=== PATIENT | male | born 1960 | race Caucasian/White ===

== ENCOUNTER → 2022-01-20 15:39 | Outpatient (BNVA) | payer MEDICARE, MEDICAID, SELFPAY | PROVIDERS: Family Provider Family Medicine; PCP Nurse Practitioner Family; Referring Provider Nurse Practitioner Family; Visit Provider Orthopaedic Surgery | DX: M51.36 Other intervertebral disc degeneration, lumbar region (principal); M48.061 Spinal stenosis, lumbar region without neurogenic claudication; M25.78 Osteophyte, vertebrae | CPT/HCPCS: 72110; 99203; 99204 ==

== ENCOUNTER 2022-02-16 13:10 | Outpatient (CLI) | payer MEDICARE, MEDICAID, SELFPAY ==
--- NOTE | 2022-02-16 13:45 | MR_ITS ---
WS: [id number] MRI LUMBAR SPINE NONCONTRAST TECHNIQUE: Sagittal T1, T2 and STIR imaging. Axial T1 and T2 imaging. CLINICAL INFORMATION: Lower back pain COMPARISON: None. FINDINGS: Mild lumbar curve. No acute compression. No high-grade central canal stenosis. L1-L2: Slight retrolisthesis. Mild disc space narrowing. Narrowing of the RIGHT subarticular recess. Mild RIGHT and no significant LEFT foraminal narrowing. Moderate facet arthropathy. L2-L3: Mild disc bulging with mild central canal stenosis. Impingement LEFT subarticular recess. Mild LEFT foraminal narrowing. Moderate facet arthropathy. L3-L4: Mild annular bulging. Narrowing of the LEFT subarticular recess. Mild LEFT foraminal narrowing . RIGHT foramen is patent. Moderate facet arthropathy. L4-L5: Mild disc bulging with osteophytic ridging. Moderate central canal stenosis. Impingement trave rsing L5 nerve roots bilaterally. Advanced facet arthropathy. Ligamentum flavum hypertrophy. Moderate RIGHT and mild LEFT foraminal narrowing. L5-S1: LEFT eccentric disc osteophyte complex impinges the exiting LEFT L5 nerve root. Moderate LEFT foraminal narrowing. Slight impingement traversing LEFT S1 nerve root. RIGHT foramen is patent. Moder ate facet arthropathy. Visualized pelvic bony structures: Normal. Paravertebral soft tissues: Normal. 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 Grade 1 anterolisthesi s C7 on T1. MR/MR lumbar spine wo con* [id number] IMPRESSION: 1. Mild lumbar curve. No acute compression. No high-grade central canal stenos is. 2. Moderate central canal stenosis L4-L5 with impingement traversing L5 nerve roots bilaterally. Moderate RIGHT L4-L5 foraminal narrowing impinges the exitin g RIGHT L4 nerve root. 3. Disc bulging L5-S1 slightly contacts the LEFT S1 nerve root. Moderate LEFT L5-S1 foraminal narrowing. 4. Disc bulging L1-L2 impinges the RIGHT subarticular recess with encroachment traversing RIGHT L2 nerve root. Mild RIGHT L1-L2 foraminal narrowing. 5. Mild central canal stenosis L2-L3 impinges the traversing LEFT L3 nerve laurie t with mild LEFT foraminal narrowing. 6. Mild central canal stenosis L3-L4 slight narrowing of the LEFT subarticular recess. Mild LEFT L3-L4 foraminal narrowing. 7. Advanced facet arthropathy L4-L5.
== END 2022-02-16 13:11 | disposition home or self-care (01) ==
LOC: RAD 13:10
PROVIDERS: PCP Nurse Practitioner Family; Visit Provider Orthopaedic Surgery
DX: M48.061 Spinal stenosis, lumbar region without neurogenic claudication (principal); M51.37 Other intervertebral disc degeneration, lumbosacral region; M47.816 Spondylosis without myelopathy or radiculopathy, lumbar region
CPT/HCPCS: 72148

== ENCOUNTER 2023-04-10 04:59 | Inpatient (IN) | payer MEDICARE, MEDICAID, SELFPAY ==
[2023-04-10] VITALS (12 sets, daily range): BP systolic 112–167; BP diastolic 66–110; PULSE 93–117; RESP 16–31; TEMP 36.7; O2SAT 93–98; BMI 23.3
--- NOTE | 2023-04-10 06:21 | P.HP_ITS ---
Providers/Chief Complaint 2 Admitting Physician: Omar Covarrubias MD Primary Care Provider: Ricky Lagunas Chief Complaint: Nonstemi History of Present Illness April Mancia is a 62 year old male with history of coronary disease, stent in the past, active smoker, polysubstance abuse, COPD, drinks alcohol on daily basis transferred from [facility] for management evaluation of shortness of breath. Work-up at the other facility showed troponin greater than 600, BNP greater than 2000, EKG did not show any acute ischemic changes, T wave inversion with ST depression were noted on EKG he was put on heparin drip he was given therapeutic aspirin Nitropaste was put on his chest. He was transferred to our facility for cardiac evaluation. At the time of evaluation patient is chest pain-free he is tachycardic, he is stating that for last couple days he has been getting more short of breath than usual, he smokes couple packs of cigarettes every day, drinks 1 pint of vodka has history of DTs in the past, endorsing use of methamphetamine and marijuana, he used methamphetamine yesterday as well. He is stating that he has had a stent placed couple of years ago. He lives alone, no chest pain at the time of evaluation. Patient is stating that he never experienced any chest pain but his shortness of breath has gotten worse. He has not noticed any diarrhea, nausea, vomiting or productive cough. I have started ACS protocol with therapeutic Lovenox Review of Systems 2 Const: Denies: fever(s) Eyes: Denies: change in vision ENMT: Denies: throat pain Card: Denies: chest pain Resp: Reports: dyspnea GI: Reports: nausea; Denies: abdominal pain : Denies: flank pain Musc: Denies: neck pain Medications/Allergies Allergies Allergy/AdvReac Type Severity Reaction Status Date / Time No Known Allergies Allergy Verified 05/25/22 13:04 PFSH Acute 2 PFSH: Medical History DTs (delirium tremens) Scabies Surgical History (Updated 04/10/23 @ 07:13 by Omar Covarrubias MD) History of surgery on arm Social History Smoking and tobacco/nicotine status: current every day tobacco/nicotine user Alcohol intake: current Alcohol intake frequency: 3 or more drinks per day Alcohol type: hard liquor Substance/Drug Use: current Substance/Drug use type: Marijuana and Methamphetamine Vitals/I&O/Wt Last Vital Signs Pulse 114 H 04/10/23 05:09 Resp 31 H 04/10/23 05:09 BP 141/88 04/10/23 05:09 Pulse Ox 97 04/10/23 05:09 O2 Del Method Nasal Cannula 04/10/23 05:09 O2 Flow Rate 2 04/10/23 05:09 Weight last 48 hrs Weight 71.668 kg Weight 73.936 kg Weight 71.668 kg Physical Exam 2 Narrative: Dehydrated Tachycardic Pleasant and cooperative No active chest pain Currently on 2 L GCS 15 Nonfocal neuro exam Abdomen soft Pleasant and cooperative No active chest pain Data 04/10/23 06:55 04/10/23 06:55 A&P Assessment and plan (1) Methamphetamine abuse: (2) Sciatic nerve pain: (3) Back Pain: (4) NSTEMI (non-ST elevated myocardial infarction): (5) Nicotine abuse: Plan Non-STEMI Start ACS protocol Give therapeutic dose of Plavix/loading dose Patient was given aspirin at the other facility Start Lovenox therapeutic regimen Serial troponin and EKG Patient will need cardiology evaluation for angiogram Patient is stating that he has history of coronary disease, stent was placed couple of years ago Patient was seen in 2018 stent was placed to proximal RCA and balloon angioplasty to distal circumflex there was moderate 60% proximal LAD stenosis, left circumflex mid 50% stenosis Cardiology recommendations [id number]: Status post stent to proximal RCA and balloon angioplasty to distal circumflex. There was moderate 60% proximal LAD stenosis . Left circumflex has mid 50% stenosis it is a small caliber and size vessel. Distal circumflex was subtotally occluded which was ballooned. Good result with YOUNG-3 flow was restored in both vessels. Patient also has ostial PDA which is 75% it is small caliber and size vessel. We wanted to perform balloon angioplasty on it however patient was not very cooperative since we achieved good result with both lesions were decided to treated medically or perform stage PCI at some point if despite of medical treatment this lesion induces ischemia Polysubstance abuse Endorsing to methamphetamine use, last use was yesterday Drinks alcohol on daily basis Drinks a pint of vodka every day Start thiamine, folic acid and scheduled dose of phenobarbital has history of DTs Cardiac diet Full code We will consult Dr. Beltran who is on for general cardiology today Attestations 2 Medical Necessity Statement*: More than 2 midnights anticipated Diagnoses Methamphetamine abuse F15.10 Sciatic nerve pain M54.30 Back Pain M54.9 NSTEMI (non-ST elevated myocardial infarction) I21.4 Nicotine abuse Z72.0
--- NOTE | 2023-04-10 06:22 | USCV_ITS ---
April Mancia Age: 62 Gender: M : 1960 Exam Date: 04/10/2023 08:45 Ordering Phys: Omar Covarrubias MD Technologist: Yo Borrego Exam Location: [facility] [place] Indication: nstemi BP: 167 / 111 HR: Rhythm: Sinus Technical Quality: Very technically difficult study MEASUREMENTS (Male / Female) Normal Values DOPPLER AV Peak Velocity 101.0 cm/s LVOT Peak Velocity 70.0 cm/s MV Area PHT 5.4 cm squared Mitral E to A Ratio 1.3 MV E' Velocity 70.0 cm/s FINDINGS Left Ventricle Mildly increased left ventricular cavity size. Severely decreased left ventricular systolic function. Left ventricular ejection fraction is estimated at 25-30 %. Possibly severe global hypokinesis. However study was inadequate for estimation of regional wall motion abnormality. Right Ventricle Normal right ventricular size and systolic function. Right Atrium Normal right atrial size. Left Atrium Mildly increased left atrial size. Mitral Valve Structurally normal mitral valve. Mild mitral valve regurgitation. Aortic Valve Aortic valve not well visualized. No aortic valve stenosis. Tricuspid Valve Structurally normal tricuspid valve. Pulmonic Valve Pulmonic valve not well visualized. Pericardium No pericardial effusion. Aorta Aorta not well visualized. IVC Inferior vena cava not visualized. CONCLUSIONS 1. This is a technically difficult study. Only Subcostal images were available. 2. Mildly increased left ventricular cavity size. Severely decreased left ventricular systolic function. Left ventricular ejection fraction is estimated at 25-30 %. Possibly severe global hypokinesis. However study was inadequate for estimation of regional wall motion abnormality. 3. Mild mitral valve regurgitation. 4. When compared to study dated 06/18/2017, there may not have been any significant change. Jodie Spear MD (Electronically Signed) Final Date: 10 April 2023 12:20 S
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
--- NOTE | 2023-04-10 06:34 | ECG_ITS ---
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 Measurements Intervals [place] Rate: 110 P: 64 AR: 129 QRS: 36 QRSD: 102 T: -6 QT: 351 QTc: 476 Interpretive Statements SINUS TACHYCARDIA WITH OCCASIONAL VENTRICULAR PREMATURE COMPLEXES POSSIBLE LEFT ATRIAL ENLARGEMENT [-0.1mV P-WAVE IN V1/V2] NONSPECIFIC ST & T-WAVE ABNORMALITY ABNORMAL RHYTHM ECG Compared to ECG 06/18/2017 09:24:03 Ventricular premature complex(es) now present Sinus rhythm no longer present Possible ischemia no longer present T-wave abnormality still present Electronically Signed On 04-10-2023 8:17:38 INSTRUMENT INSTALLER by Andrea Gu M.D. [id number]
[2023-04-10] MEDS: clopidogrel 300 mg Tablet PO (06:36)
[2023-04-10] MEDS: enoxaparin 80 mg/0.8 mL Syringe 70 MG SUBCUT ×2 (06:52→18:19)
[2023-04-10 07:04] LABS: Basophils % 0.1 %; Hematocrit 40.6 % (37-53); Lymphocytes # 0.8 10^3/uL (0.8-4.8); Lymphocytes % 8.4 %; Mean Corpuscular HGB Conc 32.5 g/dL (30-55); Mean Corpuscular Hemoglobin 28.9 pg (27-33); Mean Platelet Volume 11.7 fL (7.4-10.4); Monocytes # 0.1 10^3/uL (0.2-0.9); Monocytes % 1.2 %; Neutrophils # 8.26 10^3/uL (1.8-7.7); Nucleated Red Blood Cells % 0 %; Platelet Count 187 10^3/cmm (157-399); Red Blood Count 4.56 10^6/uL (3.85-5.65); Red Cell Distribution Width 14.8 % (12.1-15.1); White Blood Count 9.18 10^3/uL (3.29-11.43)
[2023-04-10 07:21] LABS: Estmated Average Glucose 114; Hemoglobin A1C 5.6 % (4.0-6.0)
[2023-04-10 07:26] LABS: Alanine Aminotransferase 23 U/L (0-41); Albumin Level 3.5 g/dL (3.5-5.2); Alkaline Phosphatase 118 U/L (40-130); Anion Gap 18.1 (5-19); Aspartate Amino Transferase 45 U/L (0-40); Blood Urea Nitrogen 14 mg/dL (8-23); Calcium 8.6 mg/dL (8.5-10.5); Carbon Dioxide 19 mmol/L (22-29); Chloride 102 mmol/L (98-107); Globulin 3.6 g/dL (1.3-4.6); Glomerular Filtration Rate 113.9 mL/min (90-130); Glucose 136 mg/dL (65-115); Osmolality Calculated 283 mOsm/kg (285-295); Potassium 4.1 mmol/L (3.5-5.1); Sodium 135 mmol/L (136-145); Total Bilirubin 1.1 mg/dL (0.15-1.2); Total Protein 7.1 g/dL (6.6-8.7)
[2023-04-10 07:29] LABS: Troponin(5th) Baseline 534 ng/L (0-15)
[2023-04-10 07:31] LABS: Partial Thromboplastin Time 38.1 SECONDS (23.9-36.7)
[2023-04-10 07:32] LABS: D Dimer 1.37 ug/mLFEU (0-0.59)
[2023-04-10 07:41] LABS: Thyroid Stimulating Hormone 0.74 uIU/mL (0.27-4.20); Vitamin B12 303 pg/mL (232-1245)
[2023-04-10] MEDS: PHENobarbital 32.4 mg Tablet 97.2 MG PO (07:50)
[2023-04-10 07:58] LABS: Alcohol Level < 10 mg/dL (0-10)
--- NOTE | 2023-04-10 08:23 | ECG_ITS ---
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 Measurements Intervals [place] Rate: 108 P: 109 SD: 124 QRS: 172 QRSD: 106 T: 123 QT: 361 QTc: 485 Interpretive Statements SINUS TACHYCARDIA WITH OCCASIONAL VENTRICULAR PREMATURE COMPLEXES POSSIBLE LEFT ATRIAL ENLARGEMENT [-0.1mV P-WAVE IN V1/V2] RIGHT AXIS DEVIATION [QRS AXIS > 100] NONSPECIFIC ST & T-WAVE ABNORMALITY Compared to ECG 04/10/2023 06:34:45 Right-axis deviation now present T-wave abnormality still present Electronically Signed On 04-10-2023 9:39:08 LINE INSTALLER TROLLEY by Jodie Spear M.D. [id number]
[2023-04-10] MEDS: LORazepam 2 mg/mL INJ 1 mL 1 MG IVP (08:25)
[2023-04-10] MEDS: ipratropium-albuterol 3 mL Neb INHALATION ×3 (08:34→20:12)
[2023-04-10] MEDS: lisinopril 10 mg Tablet PO (08:36)
[2023-04-10] MEDS: folic acid 1 mg Tablet PO (08:36)
[2023-04-10] MEDS: multivitamin therapeutic Tablet 1 TAB PO (08:36)
[2023-04-10] MEDS: atorvastatin 40 mg Tablet 80 MG PO (08:36)
[2023-04-10] MEDS: aspirin 81 mg EC Tablet PO (08:36)
[2023-04-10] MEDS: metoprolol tartrate 25 mg Tablet 12.5 MG PO ×2 (08:36→20:42)
[2023-04-10] MEDS: clopidogrel 75 mg Tablet PO (08:36)
[2023-04-10] MEDS: thiamine 100 mg Tablet PO (08:37)
--- NOTE | 2023-04-10 08:37 | P.PN_ITS ---
Documented by User: alex Cook 04/10/23 08:58 Subjective 2 Subjective: Patient was evaluated this morning while sitting on side of the bed on 2L/NC. Patient denies any chest pain at this time but does report some arthritic/back pain throughout. Able to answer questions appropriately and displays no distress at this time. Denies any abdominal pain, fever, chills does report some shortness of breath but states this is normal for patient. Medications: Reviewed: Yes Vitals/I&O/Wt Last Vital Signs Pulse 108 H 04/10/23 08:28 Resp 20 H 04/10/23 08:28 BP 167/110 04/10/23 08:28 Pulse Ox 94 04/10/23 08:28 O2 Del Method Nasal Cannula 04/10/23 08:08 O2 Flow Rate 2 04/10/23 08:08 Weight last 48 hrs Weight 71.668 kg Weight 73.936 kg Weight 71.668 kg Physical Exam 2 Narrative: General: Alert, oriented, ill-appearing. Neck: Supple Lymph: No lymphadenopathy Chest: Inspection of chest normal Respiratory: Diminished breath sounds throughout on auscultation. Normal respiratory effort. Prolonged expiratory phase. Cardio: No JVD, no murmur present, no edema throughout, S1-S2 GI: Round, nontender on palpation, soft, active bowel sounds throughout. deferred Skin: No obvious abnormalities or skin breakdown. Neuro: Alert oriented x 4. Data 04/10/23 06:55 04/10/23 06:55 Other Labs: Baseline troponin 534. CXR: Radiologist's impression: Granulomatous disease, bibasilar infiltrates. EKG 1: My Interpretation: Sinus tachycardia. No ST elevation or T wave depression. No concerning EKG findings EKG computer-generated impression: Sinus tach with PVCs A&P Assessment and plan (1) NSTEMI (non-ST elevated myocardial infarction): Baseline troponin of 534. Trend 2-hour and 6-hour troponins today. Telemetry Aspirin daily Metoprolol 12.5 mg twice daily. Lovenox for anticoagulation. Cardiology consultation. Echocardiogram today. CBC, CMP in a.m. Cardiac diet Repeat EKG this afternoon. (2) ETOH abuse: [facility] protocol Ativan and Librium PO as needed Multivitamin p.o. daily Thiamine Folic acid (3) Methamphetamine abuse: Cessation discussed. (4) DDD (degenerative disc disease): Patient complained of arthritic /back pain throughout today. Will place on hydrocodone 5/325 PO as needed. Plan Plan as stated above. Trend troponins and await cardiology consultation. Begin CICT protocol for alcohol withdrawal. DVT prophylaxis: Lovenox Coding Level of Care Code Acute Code for [facility] Fwd Diagnoses NSTEMI (non-ST elevated myocardial infarction) I21.4 ETOH abuse F10.10 Methamphetamine abuse F15.10 DDD (degenerative disc disease) Documented by User: Jeovany Dean MD 04/10/23 08:59 Data 04/10/23 06:55 04/10/23 06:55 A&P Assessment and plan (1) NSTEMI (non-ST elevated myocardial infarction): (2) ETOH abuse: (3) Methamphetamine abuse: (4) DDD (degenerative disc disease): Plan Plan as stated above. Trend troponins and await cardiology consultation. Begin CICT protocol for alcohol withdrawal. DVT prophylaxis: Edith I saw the patient with student, formulated the assessment and plan with the student, and did an exam that is consistent with that above. Attestations 2 Medical Necessity Statement*: Needs continued hospitalization, for treatment of alcohol withdrawal as well as evaluation of chest pain with elevated troponin consistent with non-ST elevation myocardial infarction Coding Level of Care Code Acute Code for [facility] Fwd Diagnoses NSTEMI (non-ST elevated myocardial infarction) I21.4 ETOH abuse F10.10 Methamphetamine abuse F15.10 DDD (degenerative disc disease)
[2023-04-10 09:16] LABS: Amphetamines Screen Urine Positive (Negative); Barbiturates Screen Urine Negative (Negative); Benzodiazepines Screen Urine Negative (Negative); Cocaine Screen Urine Negative (Negative); Opiate Screen Urine Positive (Negative); PCP Screen Urine Negative (Negative); THC Screen Urine Positive (Negative)
--- NOTE | 2023-04-10 09:50 | P.CONIM_ITS ---
Providers/Reason For Consult 2 Consulting Physician/Specialty*: Dr. Spear, Cardiology Reason for Consult*: NSTEMI Attending Physician: Jeovany Dean MD Primary Care Provider: Ricky Lagunas History of Present Illness History of Present Illness April Mancia is a 62 year old male with PMHx of CAD with prior stent in 2018 (Status post stent to proximal RCA and balloon angioplasty to distal circumflex), HFrEF (LVEF=28%), mixed cardiomyopathy, h/o alcohol and meth abuse, Granulomatous lung disease of unknown etiology, Obesity and Continuous tobacco abuse. He was in [place] [facility] until 2021. He has not seen any doctors since. He is here with c/o worsening SOB. He was not taking any meds before arrival to the hospital. He was transferred from [facility] after labs showed troponin greater than 600, BNP greater than 2000. At the time of evaluation patient is chest pain-free he is tachycardic, he is stating that for last few days he has been getting more short of breath than usual. Echo with severely decreased LV function with global hypokinesis. Review of Systems 2 Const: Denies: fever(s) Eyes: Denies: change in vision ENMT: Denies: throat pain Card: Denies: chest pain Resp: Reports: dyspnea and non-productive cough; Denies: productive cough or hemoptysis GI: Reports: nausea; Denies: abdominal pain, hematemesis, hematochezia or melena : Denies: flank pain Musc: Denies: neck pain or extremity swelling Psych: Denies: anxiety or depression Endo: Denies: tired all the time Epifanio/Lymph: Denies: easy bruising, easy bleeding, petechiae or purpura Medications/Allergies Home Medications Medication Instructions Recorded Confirmed Last Taken Type albuterol sulfate 90 mcg/actuation 1 inh inhalation Q6H PRN Shortness 04/10/23 04/10/23 Unknown History aerosol inhaler Of Breath metoprolol succinate 25 mg 25 mg PO DAILY 04/10/23 04/10/23 Unknown History tablet,extended release 24 hr simvastatin 40 mg tablet 40 mg PO QPM 04/10/23 04/10/23 Unknown History tiotropium bromide 18 mcg capsule 1 cap inhalation DAILY 04/10/23 04/10/23 Unknown History with inhalation device (Spiriva with HandiHaler) Allergies Allergy/AdvReac Type Severity Reaction Status Date / Time No Known Allergies Allergy Verified 05/25/22 13:04 Current Medications Generic Name Dose Route Start Last Admin Trade Name Jef PRN Reason Stop Dose Admin Albuterol/Ipratropium 3 ml 04/10/23 09:00 04/10/23 08:34 Ipratropium-Albuterol 3 Ml Neb INHALATION 3 ml Q6H.RESP MINE Administration Aspirin 81 mg 04/10/23 09:00 04/10/23 08:36 Aspirin 81 Mg Ec Tablet PO 81 mg DAILY MINE Administration Atorvastatin Calcium 80 mg 04/10/23 09:00 04/10/23 08:36 Atorvastatin 40 Mg Tablet PO 80 mg DAILY MINE Administration Clopidogrel Bisulfate 75 mg 04/10/23 09:00 04/10/23 08:36 Clopidogrel 75 Mg Tablet PO 75 mg DAILY MINE Administration Enoxaparin Sodium 70 mg 04/10/23 06:45 04/10/23 06:52 Enoxaparin 80 Mg/0.8 Ml Syringe SUBCUT 70 mg Q12H MINE Administration Folic Acid 1 mg 04/10/23 09:00 04/10/23 08:36 Folic Acid 1 Mg Tablet PO 1 mg DAILY MINE Administration Lisinopril 10 mg 04/10/23 09:00 04/10/23 08:36 Lisinopril 10 Mg Tablet PO 10 mg DAILY MINE Administration Metoprolol Tartrate 12.5 mg 04/10/23 09:00 04/10/23 08:36 Metoprolol Tartrate 25 Mg Tablet PO 12.5 mg BID@0900,2100 MINE Administration Multivitamins Therapeutic 1 tab 04/10/23 09:00 04/10/23 08:36 Multivitamin Therapeutic Tablet PO 1 tab DAILY MINE Administration Thiamine Mononitrate 100 mg 04/10/23 09:00 04/10/23 08:37 Thiamine 100 Mg Tablet PO 100 mg DAILY MINE Administration PFSH Acute 2 PFSH: Medical History (Updated 04/10/23 @ 21:59 by Jodie Spear MD) Cardiomyopathy CHF (congestive heart failure), NYHA class III DTs (delirium tremens) Scabies Surgical History History of surgery on arm Social History Smoking and tobacco/nicotine status: current every day tobacco/nicotine user Alcohol intake: current Alcohol intake frequency: 3 or more drinks per day Alcohol type: hard liquor Substance/Drug Use: current Substance/Drug use type: Marijuana and Methamphetamine Vitals/I&O/Wt Last Vital Signs Pulse 109 H 04/10/23 08:43 Resp 17 04/10/23 08:43 BP 167/110 04/10/23 08:28 Pulse Ox 97 04/10/23 08:43 O2 Del Method Nasal Cannula 04/10/23 08:43 O2 Flow Rate 2 04/10/23 08:43 04/09/23 04/10/23 04/10/23 22:59 06:59 14:59 Intake Total 240 / 240 Output Total 300 / 300 Balance -60 / -60 Weight last 48 hrs Weight 158 lb Weight 163 lb Weight 158 lb Physical Exam 2 Narrative: GENERAL: Averagely built and averagely nourished in no acute distress HEENT: Extraocular movement intact. No pallor or icterus. NECK: No JVD, No carotid bruit. CARDIOVASCULAR SYSTEM: S1-S2 regular. tachycardia+ No murmur rubs or gallops. RESPIRATORY SYSTEM: Chest clear to auscultation. No wheezes rhonchi or rubs heard. No use of accessory muscles. ABDOMEN: Soft, nontender and nondistended. Normal bowel sounds present. EXTREMITIES: No cyanosis or edema. No signs of chronic venous insufficiency. MANAGER GAS: Patient is alert oriented ?3. No focal neurological deficits. SKIN: Normal turgor and temperature. PSYCH: Normal insight and judgment. Data 04/10/23 06:55 04/10/23 06:55 Other Labs: Troponin T > 600 at [place], Troponin 534--> 476 HbA1C 5.6, normal TSH Other data: TTE (06/11/22) CONCLUSIONS 1. This is a technically difficult study. Only Subcostal images were available. 2. Mildly increased left ventricular cavity size. Severely decreased left ventricular systolic function. Left ventricular ejection fraction is estimated at 25-30 %. Possibly severe global hypokinesis. However study was inadequate for estimation of regional wall motion abnormality. 3. Mild mitral valve regurgitation. 4. When compared to study dated 06/18/2017, there may not have been any significant change. CXR (06/11/22) IMPRESSION: 1. Old granulomatous disease. 2. Poor inspiratory effort. Bibasilar infiltrates might be present. [facility] (06/16/2017) Diagnostic procedure Angiographic Findings Cardiac Arteries and Lesion Findings LCx: Lesion on Dist CX: Mid subsection.95% stenosis 18 mm length. Pre procedure YOUNG II flow was noted. The guidewire cross was successful.Poor runoff was present.The lesion was diagnosed as a low risk lesion.The lesion was tubular and lightly calcified.The lesion showed with irregular contour, moderate angulation and moderate tortuosity.Culprit lesion. RCA: Lesion on Mid RCA: Proximal subsection.90% stenosis 8 mm length. Pre procedure YOUNG II flow was noted. The guidewire cross was successful.Poor runoff was present.The lesion was diagnosed as a moderate risk lesion.The lesion was tubular, eccentric and lightly calcified.The lesion showed moderate angulation and moderate tortuosity.Culprit lesion. Conclusions Procedure Summary Please note that due to suspicious x-ray of the lung with questionable widespread granulomatous disease, infectious precaution was taken which delayed the procedure for half an hour more than usual. #1 Left main has luminal irregularities #2 LAD has mid long 60% stenosis #3 LCx has mid subtotal tandem occlusion it is a small caliber size vessel. Obtuse marginal has proximal 50% stenosis #4 RCA has proximal 95% stenosis, ostial PLB has 75% stenosis Successful PCI to proximal RCA with drug-eluting stent Successful PCI to mid RCA. Lesion was prepared with 2.0 x 15mm AB TREK balloon, followed by deployment of ABBY INTEGRITY 2.75 x 12 mm stent posted at high LORENZA of 12 mm to ensure proper approximation. Excellent angiographic result with YOUNG-3 flow was achieved. Successful balloon angioplasty of the mid LCx with drug-eluting balloon AB TREK 2.0X15 mm with good angiographic result Patient was very not cooperative moving around therefore I was not able to cross the lesion as patient would like to finish the procedure. It was thought to manage it medically and to address it with stage PCI if needed with LAD lesion in the future. A&P Assessment and plan (1) NSTEMI (non-ST elevated myocardial infarction): will plan [place] [facility] [facility] [place] and troponin elevation -appears euvolemic on exam -Risks and benefits were discussed with the patients. Alternate management options were discussed with the patient as well. Possible complications including risk of heart attack stroke and , coronary perforation, arrhythmia, cardiac tamponade in urgent CABG were discussed with the patient as well. Plan is to proceed for the procedure at the earliest. (2) CHF (congestive heart failure), NYHA class III: Qualifiers: Congestive heart failure type: combined Congestive heart failure chronicity: chronic Qualified Code(s): I50.42 - Chronic combined systolic (congestive) and diastolic (congestive) heart failure (3) Cardiomyopathy: Qualifiers: Cardiomyopathy type: dilated Qualified Code(s): I42.0 - Dilated cardiomyopathy (4) Methamphetamine abuse: (5) ETOH abuse: (6) Nicotine abuse: Plan HTN Tachycardia CAD with h/o prior stent Coding Level of Care Code 30542 Diagnoses NSTEMI (non-ST elevated myocardial infarction) I21.4 Chronic combined systolic and diastolic congestive heart failure, NYHA class 3 I50.42 Congestive heart failure type: combined Congestive heart failure chronicity: chronic Dilated cardiomyopathy I42.0 Cardiomyopathy type: dilated Methamphetamine abuse F15.10 ETOH abuse F10.10 Nicotine abuse Z72.0
--- NOTE | 2023-04-10 13:01 | ECG_ITS ---
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 Measurements Intervals [place] Rate: 100 P: 66 [place]: 120 QRS: 42 QRSD: 105 T: 0 QT: 369 QTc: 476 Interpretive Statements SINUS TACHYCARDIA POSSIBLE LEFT ATRIAL ENLARGEMENT [-0.1mV P-WAVE IN V1/V2] ST DEVIATION AND MODERATE T-WAVE ABNORMALITY, CONSIDER LATERAL ISCHEMIA [-0.1+ mV T-WAVE IN I/aVL/V5/V6] Compared to ECG 04/10/2023 09:13:34 Possible ischemia now present Ventricular premature complex(es) no longer present Right-axis deviation no longer present T-wave abnormality still present Electronically Signed On 04-10-2023 13:51:11 [employer]OR [employer] by Jodie Spear M.D. [id number]
[2023-04-10 13:19] LABS: Troponin 5 6HR Delta 7.3 ng/L (0-12)
[2023-04-10 13:20] LABS: Troponin 5 6HR 541.3 ng/L (0-15)
[2023-04-10] MEDS: LORazepam 2 mg/mL INJ 1 mL IVP (18:20)
[2023-04-10] MEDS: budesonide 0.5 mg/2 mL Neb INHALATION (20:12)
[2023-04-11] VITALS (29 sets, daily range): BP systolic 112–168; BP diastolic 66–95; PULSE 89–108; RESP 13–29; TEMP 36.7–36.8; O2SAT 85–95; BMI 23.2
[2023-04-11 05:37] LABS: Basophils % 0.2 %; Eosinophils % 0.2 %; Hematocrit 40.7 % (37-53); Lymphocytes # 3.7 10^3/uL (0.8-4.8); Lymphocytes % 22.6 %; Mean Corpuscular HGB Conc 31.7 g/dL (30-55); Mean Corpuscular Hemoglobin 28.8 pg (27-33); Mean Corpuscular Volume 90.8 fl (82-101); Mean Platelet Volume 12.2 fL (7.4-10.4); Monocytes # 1.9 10^3/uL (0.2-0.9); Monocytes % 11.6 %; Neutrophils # 10.51 10^3/uL (1.8-7.7); Nucleated Red Blood Cells % 0 %; Platelet Count 176 10^3/cmm (157-399); Red Blood Count 4.48 10^6/uL (3.85-5.65); Red Cell Distribution Width 15.1 % (12.1-15.1); White Blood Count 16.18 10^3/uL (3.29-11.43)
--- NOTE | 2023-04-11 06:01 | XACV_ITS ---
Exam Room: [facility] Ht: 175 cm Wt: 71 kg BSA: 1.87 m2 Gender: Male : 1960 Any Known Allergies: No known allergies Exam Priority: Routine Procedure(s): Procedure Description: Diagnostic procedure Procedure Description: PCI procedure Procedure Description: PTCA Procedure Description: Coronary Angiography Diagnostic Cath Status: Urgent Diagnostic Findings * 62-year-old man with past medical history of CAD with prior stent in RCA in 2018, dilated cardiomyopathy and history of polysubstance abuse and noncompliance presented with worsening exertional shortness of breath and was diagnosed with non-ST elevation NY. * Normal left main artery without any significant stenosis. * Small to medium caliber left anterior descending artery with mild 50% narrowing in proximal LAD before takeoff of first septal branch. Mid LAD with mild 40% narrowing.. * Small caliber circumflex artery with mild diffuse disease. * Dominant right coronary artery with patent proximal stent. Distal to previous stent in mid segment of right coronary artery there is 90% stenosis with acute thrombus. Ostial PLB with 70% stenosis.. * Case was discussed and images were reviewed with Dr. Santizo. He took over the case at this time. PCI Status: Urgent PCI LVEF Assessed: No PCI Indication: NSTE - ACS Interventional Findings * Significant polysubstance abuse. Previously placed stent to the right coronary artery. Admitted with non-ST segment elevation NY. Current angiography reveals a 90% stenosis with thrombus in the mid right coronary artery distal to the existing stent. Concern was for inability to properly engage the right coronary artery and inability to pass balloons and stents beyond the existing stent. * I was able to engage the right coronary artery with a standard Mireya catheter. The wire was difficult to place down the vessel. Initially, as expected, the balloon became stuck on the previously placed stent. I then placed a guide liner. I was able to get a balloon past the existing stent and down to the lesion. Not unexpectedly, angioplasty broke up the thrombus and caused downstream embolization. There were no clinical consequences of this. Unfortunately, a stent could not be placed in the vessel due to the tortuosity but more importantly the previously placed stent prevented the passage of a stent today. Therefore, the procedure was discontinued and Aggrastat was added. Clinically, he is stable without any consequence of the downstream embolization. Decision for PCI with Surgical Consult: No PCI for Multi-vessel Disease: No Conclusions 1. Mid segment of right coronary artery has 90% stenosis with acute thrombus. Ostial PLB with 70% stenosis. 2. Mild to moderate disease in left anterior descending and circumflex artery territory. Recommendations * Return to inpatient for close monitoring and routine cath care. * Statin and aspirin 81mg lifelong, if tolerated. * Continue Plavix 75mg p.o. daily for at least one year. We will assess at the end of one year to determine continuation or not. Pressures Phase:Rest AO : 168 / 99 ( 126 ) @ 9:05:00 AM 144 / 81 ( 105 ) @ 9:11:00 AM 120 / 89 ( 104 ) @ 9:39:00 AM Clinical Evaluation EBL: 5mL-10mL Procedural Details Procedure Consent Obtained. Current Diagnosis : NSTEMI. Pre-Procedure Time Out. Identified patient by full name and date of as verbalized by the patient/guarantor. Does the consent match the physician's order: Yes. Accurate & Complete Informed Consent: Yes. Inpatient/Outpatient History & Physical on Chart: Yes. If H&P is completed, is and addenduem needed: No; If yes, is the addendum complete: N/A. Visualize and Verify Site with Patient/Guarantor: N/A. Relevant Radiology Images available: Yes. Pre-op teaching completed and patient verbalized understanding. The risks, benefits, and alternatives of sedation and/or procedure were discussed by physician. The patient agrees to continue. Procedure started. [facility] Clinical Fraility Score: 4: Vulnerable. Accounts Receivable Supervisor Indications: Cardiomyopathy, Nstemi. Chest Pain Symptom Assessment: Atypical Angina. Correct patient, site and procedure confirmed by cath team. Current diagnosis: NSTEMI, Cardiomyopathy. PERRLA. Strong, equal hand salesperson driver bilaterally. Lungs clear x 5 lobes. IV Site on Arrival: 20 gauge in the left forearm. IV Fluids: 0.9% NaCl at 75ml/hr. 50 mL infused prior to clinical laboratory aides teacher. Pre Procedural Pulses: bilateral dorsalis pedis was 1+. Pre Procedural Pulses: bilateral posterior tibial was 1+. Oxygen started at 3liters/min via nasal canula. bilateral groins was prepped with chloroprep then draped in the usual sterile fashion. Physician notified. Baseline sample Acquired. HR: 102 BPM. Physician arrived. Physician arrived. Physician scrubbed in. Immediate Pre-Procedure Time Out. Correct Patient: Yes; Correct Procedure: Yes; Correct Site: Yes; Correct Patient Position: Yes; Correct Supplies: Yes; Dried Flammable Prep: Yes; Blood Products Available: No;. Lidocaine 1% infiltrated to the right groin. Arterial access obtained with micropuncture set. A 6 kenyan JL4 catheter in over wire. Multiple views taken of left coronary artery. Catheter removed over the standard wire. A 6 kenyan JR4 catheter in over wire. Multiple views taken of right coronary artery. Dr. aSntizo called to lab to review cine films. Catheter removed over the standard wire. Side port of sheath attached to Normal Saline flush at KVO to maintain patency. PCI Indication: NSTE. scrubbed in to perform intervention. 6 kenyan JR 4 guide catheter was inserted over the wire. Kuna guidewire was advanced through the guide catheter to lesion in the mid RCA. Guidewire advanced across lesion. Balloon inserted to lesion in the mid RCA. Balloon out. 6fr Guideliner advanced over guidewire. Balloon inserted to lesion in the mid RCA. Inflation number : 1 A AB TREK 2.50X12 RX BALLOON was prepped and advanced across the Mid RCA , then inflated to 8 LORENZA for 0:20 seconds. Balloon out. Stent inserted to lesion in the mid RCA. Unable to cross stent past existing stent. Intact 3.0mm X 12mm stent out. Guideliner and wire out. Guide catheter out. A Suture was successful obtaining hemostatsis at the Right Femoral artery insertion site. Sheath(s) sutured into position with 2-0 silk and sterile 4x4's and Op-site applied over the site. No oozing or signs and symptoms of hematoma noted. Arterial sheath flushed and connected to tranducer and pressure bag with heparinized saline. Post Procedure: Pulses reassessed and unchanged. PERRLA. Strong, equal hand salesperson driver bilaterally. No VTE prophylaxis required. Medication's Wasted: Other = Fentanyl 50mcg Versed 1 mg. Medication's Wasted: Heparin = 1000 units. Total IV fluids: 50 mL. A 20 gauge IV was started in the left hand using aseptic technique. Post-op diagnosis: CAD. Complications: None. Estimated blood loss: 5mL-10mL. Responsiveness - Normal response to verbal stimuli; alert and oriented, PERRLA. Airway - Unaffected, no intervention required; spontaneous ventilation. Circulation: W/N/L, pulses unchanged. Nausea/Vomiting: No. Procedure completed. Patient transferred by bed to 1st floor. Vital chart was stopped. Access Site Site: Right Femoral artery Sheath Size: 6 Fr Hemostasis Method: Suture Hemostasis Success: Successful Procedure Medications Start: 8:54 AM Stop: 8:54 AM Medication: Versed Amount: 1 mg Route: I.V. Start: 8:54 AM Stop: 8:54 AM Medication: Fentanyl Amount: 25 mcg Route: I.V. Start: 9:00 AM Stop: 9:00 AM Medication: Versed Amount: 1 mg Route: I.V. Start: 9:20 AM Stop: 9:20 AM Medication: Fentanyl Amount: 25 mcg Route: I.V. Start: 9:29 AM Stop: 9:29 AM Medication: Versed Amount: 1 mg Route: I.V. Start: 9:29 AM Stop: 9:29 AM Medication: Fentanyl Amount: 25 mcg Route: I.V. Start: 9:33 AM Stop: 9:33 AM Medication: Heparin Amount: 5000 units Route: I.V. Start: 9:47 AM Stop: 9:47 AM Medication: Aggrastat 12.5 mg/250 mL Amount: 36 ml Route: I.V. bolus Start: 9:48 AM Stop: 9:48 AM Medication: Aggrastat 12.5 mg/250 mL Amount: 13 ml/hr Route: I.V. bhavesh Joel, the attending physician, have reviewed and verified all procedure medications. Yes, all medications given per verbal order History/Risk Factors Hypertension: No Dyslipidemia: No Peripheral Arterial Disease (PAD): No Myocardial Infarction (NY): No Obesity: No Renal Disease: No Tobacco Use: Current/Recent(w/in 1 year) Prior Interventions PCI: Yes CABG: No Valve Surgery: No Date of PCI: 06/16/2017 Report Signatures Diagnostic Workflow Finalized by Jodie Spear MD on 04/17/2023 01:36 PM Interventional Workflow Finalized by Dr. Ricci Santizo MD on 04/11/2023 10:23 AM
[2023-04-11 06:03] LABS: Alanine Aminotransferase 21 U/L (0-41); Albumin Level 3.5 g/dL (3.5-5.2); Alkaline Phosphatase 109 U/L (40-130); Anion Gap 13.5 (5-19); Aspartate Amino Transferase 31 U/L (0-40); Blood Urea Nitrogen 20 mg/dL (8-23); Calcium 9.1 mg/dL (8.5-10.5); Carbon Dioxide 24 mmol/L (22-29); Chloride 103 mmol/L (98-107); Globulin 3.4 g/dL (1.3-4.6); Glomerular Filtration Rate 113.9 mL/min (90-130); Glucose 108 mg/dL (65-115); Osmolality Calculated 285 mOsm/kg (285-295); Potassium 4.5 mmol/L (3.5-5.1); Sodium 136 mmol/L (136-145); Total Bilirubin 0.9 mg/dL (0.15-1.2); Total Protein 6.9 g/dL (6.6-8.7)
[2023-04-11 06:08] LABS: Magnesium 2.1 mg/dL (1.7-2.3)
--- NOTE | 2023-04-11 07:18 | SUR.PREOP ---
Resting comfortably. No c/o at this time.
[2023-04-11] MEDS: aspirin 325 mg Tablet PO (07:59)
[2023-04-11] MEDS: diphenhydrAMINE 50 mg Capsule PO (07:59)
--- NOTE | 2023-04-11 08:00 | SUR.PREOP ---
[place] [address]. MD aware. No new orders. Thought to be steroid induced.
[2023-04-11] MEDS: sodium chloride 0.9% 1,000 ML 50 ML IV (08:02)
[2023-04-11] MEDS: budesonide 0.5 mg/2 mL Neb INHALATION (08:25)
[2023-04-11] MEDS: ipratropium-albuterol 3 mL Neb INHALATION ×5 (08:25→20:58)
--- NOTE | 2023-04-11 08:29 | P.PN_ITS ---
Documented by User: alex Cook 04/11/23 09:31 Subjective 2 Subjective: Patient was evaluated this morning while lying in bed on room air. Patient reports some minor congestion and airway and lungs this a.m. Patient is not in any distress at this time and is able to answer questions appropriately. Patient complaint of arthritic pain throughout is somewhat controlled with current pain medication regimen. Denies any chest pain or fever, chills. Medications: Reviewed: Yes Vitals/I&O/Wt Last Vital Signs Temp 98.0 F 04/11/23 08:00 Pulse 100 04/11/23 08:00 Resp 18 04/11/23 08:00 BP 136/78 04/11/23 08:00 Pulse Ox 94 04/11/23 08:00 O2 Del Method Room Air 04/11/23 08:00 O2 Flow Rate 2 04/11/23 02:07 04/10/23 04/11/23 04/11/23 22:59 06:59 14:59 Intake Total 480 / 1080 Balance 480 / 780 Weight last 48 hrs Weight 71.271 kg Weight 71.668 kg Weight 73.936 kg Weight 71.668 kg Physical Exam 2 Narrative: General: Alert, oriented, ill-appearing. Neck: Supple Lymph: No lymphadenopathy Chest: Inspection of chest normal Respiratory: Expiratory wheeze throughout on auscultation. Prolonged expiratory phase. Cardio: No JVD, no murmur present, no edema throughout, S1-S2 GI: Round, nontender on palpation, soft, active bowel sounds throughout. deferred Skin: No obvious abnormalities or skin breakdown. Neuro: Alert oriented x 4. Data 04/11/23 04:50 04/11/23 04:50 Other Labs: WBC 16.18 A&P Assessment and plan (1) NSTEMI (non-ST elevated myocardial infarction): Cardiology consultation. Recommendations appreciated 2-hour troponin noted to be 476. 6-hour troponin noted to be 541.3 Plan for today as patient will undergo left heart cath with cardiology for services. Patient will remain on telemetry Continue metoprolol, aspirin, Lovenox. Echocardiogram showed severe decreased left ventricle systolic function. LVEF estimated at 25 to 30%. Mild mitral valve regurgitation. CBC CMP in AM. Patient will remain n.p.o. this morning until left heart cath completed. Cardiac diet once resumed. (2) ETOH abuse: CIWA protocol Ativan and Librium PO as needed Multivitamin p.o. daily Thiamine Folic acid (3) Methamphetamine abuse: Cessation discussed. (4) DDD (degenerative disc disease): Patient reports somewhat controlled with hydrocodone as needed. Plan Plan as stated above. Will add flonase and duonebs Q4H for nasal congestion and exp wheeze. Patient will undergo left heart cath today with cardiology. Continue hypertensive medication regimen and CIWA protocol. DVT prophylaxis: Lovenox Coding Level of Care Code 75030 Diagnoses NSTEMI (non-ST elevated myocardial infarction) I21.4 ETOH abuse F10.10 Methamphetamine abuse F15.10 DDD (degenerative disc disease) Time Spent (min) 23 Documented by User: Jeovany Dean MD 04/11/23 09:39 Physical Exam 2 Narrative: General: Alert, oriented, ill-appearing. Nares congested Neck: Supple Lymph: No lymphadenopathy Chest: Inspection of chest normal Respiratory: Expiratory wheeze throughout on auscultation. Prolonged expiratory phase. Cardio: No JVD, no murmur present, no edema throughout, S1-S2 GI: Round, nontender on palpation, soft, active bowel sounds throughout. deferred Skin: No obvious abnormalities or skin breakdown. Neuro: Alert oriented x 4. Data 04/11/23 04:50 04/11/23 04:50 A&P Assessment and plan (1) NSTEMI (non-ST elevated myocardial infarction): (2) ETOH abuse: CIWA protocol Ativan and Librium PO as needed Multivitamin p.o. daily Thiamine Folic acid Currently does not appear to be withdrawing (3) Methamphetamine abuse: (4) DDD (degenerative disc disease): Plan Nasal congestion. Add Flonase COPD. Some more wheezing this morning. He did receive steroids at outside institution. Increase DuoNeb every 4 hours, budesonide continue with twice daily Leukocytosis. Check urinalysis Plan as stated above. Will add flonase and duonebs Q4H for nasal congestion and exp wheeze. Patient will undergo left heart cath today with cardiology. Continue hypertensive medication regimen and CIWA protocol. DVT prophylaxis: Lovenox Attestations 2 Medical Necessity Statement*: Please continue hospitalization for definitive investigation of elevated troponin non-ST elevation myocardial infarction Diagnoses NSTEMI (non-ST elevated myocardial infarction) I21.4 ETOH abuse F10.10 Methamphetamine abuse F15.10 DDD (degenerative disc disease) Time Spent (min) 23
--- NOTE | 2023-04-11 08:45 | SUR.PREOP ---
Patient taken to labeling strategist for procedure via bed.
--- NOTE | 2023-04-11 08:54 | W.PM.OPSUD ---
Surgery/Procedure H&P Update DATE OF PROCEDURE: April 11, 2023 DATE H&P PERFORMED: 04/10/23 H&P UPDATE INFORMATION: I have reviewed H&P completed within last 30 days, I have examined patient prior to procedure and No changes to prior documentation PREOP DIAGNOSIS: NSTEMI, cardiomyopathy PRIMARY INDICATION FOR PROCEDURE: NSTEMI, cardiomyopathy PLANNED PROCEDURE: Operation Date: 04/11/23 08:30 Proposed Procedures p Cardiac Catheterization(Left) - Jodie Spear MD PATIENT REASSESSED PRIOR TO SEDATION, WITH NO CHANGE NOTED: Yes PHYSICAL EXAM: alert, oriented x 3, clear to auscultation bilaterally and regular rate & rhythm AIRWAY EVAL/ANESTHESIA PLAN: normal airway, ASA III, Monitored Anesthesia, Local Anesthesia, Risks, benefits & alternatives of sedation and/or procedure discussed and Patient agrees to continue as planned
--- NOTE | 2023-04-11 10:01 | PC.CHAP ---
Pastoral Care Encounter/Spiritual Assessment Type of Contact [] Declined barrel loader visit [] Patient/Family/Request visit [] Outpatient visit [] Follow-up visit [] Physician referral [] Code/Alert [] Routine visit [] Staff referral [] Actively dying [] Patient sleeping [] Family support [] [] Out of room [] Palliative care [] [x] Receiving care in room [] Pre-surgical visit [] Trauma [] Long length of stay [] ICU visit [] Other: Relational/Emotional Strength [] Patient feels connected with others/family/visitors/staff [] Distress [] Loneliness/isolation [] Abandonment Spirituality of Patient [] Person of Anai [] Attends Hoahaoism of their Anai [] Believes in Prayer [] Reads Bible or Hoahaoism materials [] There are Spiritual issues to be addressed Quantitative Analyst Interventions [] Prayer [] Active listening [] Non-anxious presence [] Spiritual/emotional support [] Crisis/trauma care [] Spiritual counseling [] Bereavement support [] Provided bereavement packet [] Provided Bible/devotional materials [] Provided toy/stuffed animal, coloring book to patient or family member [] Provided Communion [] Anointing/[place] [] Salvation [] Completed spiritual assessment [] Other: Impact on Illness or Injury [] Angry [] Fearful [] Anxious [] Often cries [] Exhaustion [] Unable to work [] Unable to attend restoration [] Unable to walk/stand [] Unable to read [] Unable to drive [] Unable to eat/drink [] Unable to sleep [] Unable to be with family [] Patient intubated [] Other: Summary Time spent with patient
--- NOTE | 2023-04-11 10:03 | SUR.PHASEI ---
REPORT RECEIVED FROM Charlotte ASHLEY. AWAITING PATIENT ARRIVAL.
[2023-04-11] MEDS: sodium chloride 0.9% 1,000 ML 100 ML IV (10:15)
--- NOTE | 2023-04-11 10:15 | SUR.PHASEI ---
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 Status post cardiac catheterization via the right femoral approach. Patient has a right femoral groin access in place that is hooked to a pressure transducer line. System is intact and the access site is free of hematoma formation. IV's set at 100 ml hr of normal saline and Aggrastat at 13 ml/hr as post cath orders state. Vitals and Assessments per flowsheet. Verbal post cath instructions went over with the patient. He understood at this time. Will continue to monitor.
[2023-04-11] MEDS: folic acid 1 mg Tablet PO (10:30)
[2023-04-11] MEDS: metoprolol tartrate 25 mg Tablet 12.5 MG PO ×2 (10:30→19:33)
[2023-04-11] MEDS: multivitamin therapeutic Tablet 1 TAB PO (10:30)
[2023-04-11] MEDS: atorvastatin 40 mg Tablet 80 MG PO (10:30)
[2023-04-11] MEDS: clopidogrel 75 mg Tablet PO (10:30)
[2023-04-11] MEDS: fluticasone nasal spray 16gm Btl 2 SPRAY NASAL ×2 (10:32→17:03)
[2023-04-11] MEDS: lisinopril 10 mg Tablet PO (10:32)
[2023-04-11] MEDS: thiamine 100 mg Tablet PO (10:32)
[2023-04-11 10:42] LABS: Bilirubin Urine Neg (Negative); Blood Urine Neg (Negative); Glucose Urine UA Norm (Normal); Ketones Urine Negative (Negative); Leukocyte Esterase Urine Negative (Negative); Nitrate Urine Negative (Negative); Protein Urine Neg (Negative); Urine Appearance Clear (CLEAR); Urine Color Light yellow (Yellow); Urobilinogen Urine Norm (Negative); pH Urine 7 (5-7)
[2023-04-11 10:45] LABS: Add Urine Culture? No; Amorphous Sediment Urine TRACE /hpf
--- NOTE | 2023-04-11 12:55 | SUR.PHASEI ---
Aggrastat infusion complete.
[2023-04-11] MEDS: LORazepam 2 mg/mL INJ 1 mL IVP (13:06)
--- NOTE | 2023-04-11 13:10 | SUR.PHASEI ---
POST CATH NOTE Sheath removed. Manual pressure held at site for 15 minutes. Hemostatic post pull. No issues. Verbal post cath instuctions went over with the patient. He understands. Patient has a sitter in the room to assist with reminding the patient to lay flat immediately post pull. Will continue to monitor.
--- NOTE | 2023-04-11 13:45 | SUR.PHASEI ---
Sitter at bedside watching patient.
--- NOTE | 2023-04-11 17:21 | SUR.PHASEI ---
IV LOST Patient snagged IV line on bed and accidentally pulled. Patient cleaned up. Site to left hand dressed. notified. Attemted to heplock and reestablish IV but unsuccessful after 2 attempts. At this point patient is not actually requiring IV access and post cath fluids are finished. Reported off to night RYANNE hernandez that no access required at this time; pending possible am discharge and no medications requiring it at this time.
[2023-04-11] MEDS: chlordiazePOXIDE 25 mg Capsule 50 MG PO (19:33)
[2023-04-11] MEDS: HYDROcodone-acetaminophen 5-325 mg Tablet 1 TAB PO (19:33)
--- NOTE | 2023-04-11 19:38 | PC.NURSE ---
Dressing to right groin remains c,d,i with no s/s of bleeding or hematoma formation. Instructed patient on site and restrictions. Patient verbalized understanding however appears very restless. Will continue to monitor.
[2023-04-12 03:29] LABS: Basophils % 0.3 %; Eosinophils # 0.1 10^3/uL (0.0-0.8); Eosinophils % 0.5 %; Lymphocytes # 3.3 10^3/uL (0.8-4.8); Lymphocytes % 26.1 %; Mean Corpuscular HGB Conc 31.3 g/dL (30-55); Mean Corpuscular Hemoglobin 28.7 pg (27-33); Monocytes # 1.7 10^3/uL (0.2-0.9); Monocytes % 12.9 %; Neutrophils # 7.65 10^3/uL (1.8-7.7); Neutrophils % 59.9 %; Nucleated Red Blood Cells % 0 %; Platelet Count 177 10^3/cmm (157-399); Red Blood Count 4.35 10^6/uL (3.85-5.65); Red Cell Distribution Width 15.3 % (12.1-15.1); White Blood Count 12.77 10^3/uL (3.29-11.43)
[2023-04-12 03:52] LABS: Blood Urea Nitrogen 20 mg/dL (8-23); Calcium 8.8 mg/dL (8.5-10.5); Carbon Dioxide 23 mmol/L (22-29); Chloride 105 mmol/L (98-107); Glomerular Filtration Rate 97.6 mL/min (90-130); Glucose 115 mg/dL (65-115); Osmolality Calculated 288 mOsm/kg (285-295); Sodium 137 mmol/L (136-145)
[2023-04-12 04:29] VITALS: PULSE 93; RESP 20; O2SAT 94
[2023-04-12 04:41] LABS: Anion Gap 13.3 (5-19); Potassium 4.3 mmol/L (3.5-5.1)
--- NOTE | 2023-04-12 07:29 | PM.PN ---
Subjective Subjective: s/p LHC via R femoral. He was found to have severe mid RCA stenosis after previous stent (culprit lesion). He underwent balloon angioplasty. However, stent did not cross the previous stent and could not be placed. Thrombus was dislaced wih some embolization after balloon angioplasty and he was placed on aggrastat. Medications: Reviewed: Yes Vitals/I&O/Wt Last Vital Signs Temp 98.2 F 04/11/23 20:21 Pulse 93 04/12/23 04:29 Resp 20 H 04/12/23 04:29 BP 128/73 04/11/23 20:21 Pulse Ox 94 04/12/23 04:29 O2 Del Method Nasal Cannula 04/12/23 04:29 O2 Flow Rate 3 04/12/23 04:29 04/11/23 04/12/23 04/12/23 22:59 06:59 14:59 Intake Total 1280 / 1800 480 / 2280 Balance 1280 / 800 480 / 1280 Weight last 48 hrs Weight 154 lb 9.6 oz Weight 157 lb 2 oz Physical Exam Narrative: GENERAL: Averagely built and averagely nourished in no acute distress HEENT: Extraocular movement intact. No pallor or icterus. NECK: No JVD, No carotid bruit. CARDIOVASCULAR SYSTEM: S1-S2 regular. tachycardia+ No murmur rubs or gallops. RESPIRATORY SYSTEM: Chest clear to auscultation. No wheezes rhonchi or rubs heard. No use of accessory muscles. ABDOMEN: Soft, nontender and nondistended. Normal bowel sounds present. EXTREMITIES: No cyanosis or edema. No signs of chronic venous insufficiency. R groin access site w/o any bruising or hematoma OIL PIT ATTENDANT: Patient is alert oriented ?3. No focal neurological deficits. SKIN: Normal turgor and temperature. PSYCH: Normal insight and judgment. Const: COMMON NORMALS: alert Resp: COMMON NORMALS: clear to auscultation bilaterally AUSCULTATION: clear to auscultation bilaterally Neuro: SENSORIUM/ORIENTATION: Yes alert Data 04/12/23 03:11 04/12/23 03:11 A&P Assessment and plan (1) NSTEMI (non-ST elevated myocardial infarction): s/p balloon angioplasty of mid RCA lesion. JUDSON could not be placed -continue ASA, plavix, statin, beta nathan. 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 Qualifiers: Cardiomyopathy type: dilated Qualified Code(s): I42.0 - Dilated cardiomyopathy (4) Methamphetamine abuse: (5) ETOH abuse: (6) Nicotine abuse: Plan HTN Tachycardia CAD with h/o prior stent COPD Non compliance Attestations Medical Necessity Statement*: As per primary team Coding Level of Care Code Acute Code for [facility] Diagnoses NSTEMI (non-ST elevated myocardial infarction) I21.4 Chronic combined systolic and diastolic congestive heart failure, NYHA class 3 I50.42 Congestive heart failure chronicity: chronic Congestive heart failure type: combined Dilated cardiomyopathy I42.0 Cardiomyopathy type: dilated Methamphetamine abuse F15.10 ETOH abuse F10.10 Nicotine abuse Z72.0
[2023-04-12 07:36] VITALS: BP 133/86; PULSE 101; TEMP 36.7; O2SAT 96
[2023-04-12 08:00] VITALS: PULSE 97; RESP 20; O2SAT 91
[2023-04-12 08:14] VITALS: PULSE 97; RESP 20; O2SAT 91
[2023-04-12] MEDS: ipratropium-albuterol 3 mL Neb INHALATION (08:14)
[2023-04-12] MEDS: lisinopril 10 mg Tablet PO (08:22)
[2023-04-12] MEDS: aspirin 81 mg EC Tablet PO (08:22)
[2023-04-12] MEDS: atorvastatin 40 mg Tablet 80 MG PO (08:22)
[2023-04-12] MEDS: multivitamin therapeutic Tablet 1 TAB PO (08:23)
[2023-04-12] MEDS: HYDROcodone-acetaminophen 5-325 mg Tablet 1 TAB PO (08:23)
[2023-04-12] MEDS: folic acid 1 mg Tablet PO (08:23)
[2023-04-12] MEDS: thiamine 100 mg Tablet PO (08:23)
[2023-04-12] MEDS: clopidogrel 75 mg Tablet PO (08:23)
[2023-04-12] MEDS: fluticasone nasal spray 16gm Btl 2 SPRAY NASAL (08:24)
[2023-04-12] MEDS: metoprolol tartrate 25 mg Tablet 12.5 MG PO (08:31)
--- NOTE | 2023-04-12 09:10 | PC.SOCIAL ---
Pg 2 IMM Explained to pt Pg 2 IMM. No questions voiced. Provided pt a copy. Initialed, dated, & timed a copy & placed in chart.
--- NOTE | 2023-04-12 10:04 | PC.CHAP ---
Pastoral Care Encounter/Spiritual Assessment Type of Contact [] Declined custom marine canvas fabricator visit [] Patient/Family/Request visit [] Outpatient visit [] Follow-up visit [] Physician referral [] Code/Alert [x] Routine visit [] Staff referral [] Actively dying [] Patient sleeping [] Family support [] [] Out of room [] Palliative care [] [] Receiving care in room [] Pre-surgical visit [] Trauma [] Long length of stay [] ICU visit [] Other: Relational/Emotional Strength [] Patient feels connected with others/family/visitors/staff [] Distress [x] Loneliness/isolation [] Abandonment Spirituality of Patient [] Person of Anai [] Attends Islam of their Anai [] Believes in Prayer [] Reads Bible or Jainism materials [] There are Spiritual issues to be addressed Money Manager Interventions [x] Prayer [] Active listening [] Non-anxious presence [x] Spiritual/emotional support [] Crisis/trauma care [] Spiritual counseling [] Bereavement support [] Provided bereavement packet [] Provided Bible/devotional materials [] Provided toy/stuffed animal, coloring book to patient or family member [] Provided Communion [] Anointing/[place] [] Salvation [] Completed spiritual assessment [] Other: Impact on Illness or Injury [] Angry [] Fearful [] Anxious [] Often cries [] Exhaustion [] Unable to work [] Unable to attend nondenominational [] Unable to walk/stand [] Unable to read [] Unable to drive [] Unable to eat/drink [] Unable to sleep [] Unable to be with family [] Patient intubated [] Other: Summary Time spent with patient 15 min
[2023-04-12 10:28] VITALS: O2SAT 92; O2SAT 95
--- NOTE | 2023-04-12 10:55 | PM.DCS ---
Discharge Providers Date of Admission: 04/10/23 04:59 Date of Discharge: April 12, 2023 Attending Provider at Admission: Omar Covarrubias MD Attending Provider at Discharge: Jeovany Dean MD Primary Care Provider: Ricky Lagunas Diagnoses at Discharge Discharge Diagnosis (1) NSTEMI (non-ST elevated myocardial infarction): Status: Acute (2) CHF (congestive heart failure), NYHA class III: Status: Acute Qualifiers: Congestive heart failure type: combined Congestive heart failure chronicity: chronic Qualified Code(s): I50.42 - Chronic combined systolic (congestive) and diastolic (congestive) heart failure (3) Cardiomyopathy: Status: Acute Qualifiers: Cardiomyopathy type: dilated Qualified Code(s): I42.0 - Dilated cardiomyopathy (4) Methamphetamine abuse: Status: Acute (5) ETOH abuse: Status: Acute (6) Nicotine abuse: Status: Acute Reason for Visit Reason for Visit: Nonstemi Hospital Course Hospital Course April is a 62-year-old white male who presented to an [facility] with shortness of breath and chest discomfort and had a significant elevation in troponin. He also has severe COPD. He was initiated on full dose anticoagulation, aspirin, statin, and cardiology was consulted. Echocardiogram was obtained which demonstrated an EF of 25 to 30%, global hypokinesis which was similar to prior echoes. Angiogram was performed on April 11, and RCA stenosis was noted for which stent was attempted but unable to be placed and angioplasty performed. Moderate disease was noted in the left system. Full report is still pending. The following day his angiogram site in the right groin demonstrated no significant hematoma. He denied any chest discomfort, and requested discharge. It was thought he was stable for discharge and was discharged on statin, aspirin, beta-nathan, Plavix, lisinopril with close follow-up with cardiology as well as his primary care provider. He was able to ask questions and agreed with the plan. Home oxygen evaluation will also be done prior to discharge secondary to COPD. He was counseled not to smoke, not to do methamphetamine, and not to drink alcohol. Physical Exam Narrative: General exam no distress Neck is supple no lymphadenopathy thyromegaly Cardiovascular regular rate and rhythm without murmur Lungs clear with diminished breath sounds bilaterally Abdomen soft positive bowel sounds Extremities no sinus clubbing or Discharge Data Studies Completed and Pending Completed Studies During Hospitalization Category Date Time Status XR chest 1V portable [id number] Routine Exams 04/10/23 06:29 Completed CV. 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 Old granulomatous disease. 2. Poor inspiratory effort. Bibasilar infiltrates might be present. Laboratory Results WBC 12.77 10^3/uL (3.29-11.43) H 04/12/23 03:11 RBC 4.35 10^6/uL (3.85-5.65) 04/12/23 03:11 Hgb 12.50 g/dL (11.27-16.99) 04/12/23 03:11 Hct 40.0 % (37-53) 04/12/23 03:11 MCV 92.0 fl (82-101) 04/12/23 03:11 MCH 28.7 pg (27-33) 04/12/23 03:11 MCHC 31.3 g/dL (30-55) 04/12/23 03:11 RDW 15.3 % (12.1-15.1) H 04/12/23 03:11 Plt Count 177 10^3/cmm (157-399) 04/12/23 03:11 MPV 12.0 fL (7.4-10.4) H 04/12/23 03:11 Neut % (Auto) 59.9 % 04/12/23 03:11 Lymph % (Auto) 26.1 % 04/12/23 03:11 [place] % (Auto) 12.9 % 04/12/23 03:11 Eos % (Auto) 0.5 % 04/12/23 03:11 Baso % (Auto) 0.3 % 04/12/23 03:11 Neut # (Auto) 7.65 10^3/uL (1.8-7.7) 04/12/23 03:11 Lymph # (Auto) 3.3 10^3/uL (0.8-4.8) 04/12/23 03:11 [place] # (Auto) 1.7 10^3/uL (0.2-0.9) H 04/12/23 03:11 Eos # (Auto) 0.1 10^3/uL (0.0-0.8) 04/12/23 03:11 Baso # (Auto) 0.0 10^3/uL (0.0-0.1) 04/12/23 03:11 Nucleated RBC % (auto) 0 % 04/12/23 03:11 Nucleated RBCs # 0.0 /100WBC 04/12/23 03:11 APTT 28.0 SECONDS (23.9-36.7) 04/11/23 11:46 D-Dimer 1.37 ug/mLFEU (0-0.59) H 04/10/23 06:55 Sodium 137 mmol/L (136-145) 04/12/23 03:11 Potassium 4.3 mmol/L (3.5-5.1) 04/12/23 03:11 Chloride 105 mmol/L (98-107) 04/12/23 03:11 Carbon Dioxide 23 mmol/L (22-29) 04/12/23 03:11 Anion Gap 13.3 (5-19) 04/12/23 03:11 BUN 20 mg/dL (8-23) 04/12/23 03:11 Creatinine 0.8 mg/dL (0.7-1.2) 04/12/23 03:11 GFR Calculation 97.6 mL/min (90-130) 04/12/23 03:11 Glucose 115 mg/dL (65-115) 04/12/23 03:11 Estimat Average Glucose 114 04/10/23 06:55 Hemoglobin A1c 5.6 % (4.0-6.0) 04/10/23 06:55 Calculated Osmolality 288 mOsm/kg (285-295) 04/12/23 03:11 Calcium 8.8 mg/dL (8.5-10.5) 04/12/23 03:11 Magnesium 2.1 mg/dL (1.7-2.3) 04/11/23 04:50 Total Bilirubin 0.9 mg/dL (0.15-1.2) 04/11/23 04:50 AST 31 U/L (0-40) 04/11/23 04:50 ALT 21 U/L (0-41) 04/11/23 04:50 Alkaline Phosphatase 109 U/L (40-130) 04/11/23 04:50 Troponin T Baseline 534 ng/L (0-15) H* 04/10/23 06:55 Troponin T 120 Minute 476.0 ng/L (0-15) H 04/10/23 08:46 Delta Troponin T -58.0 ABS# (0-10) L 04/10/23 08:46 Troponin T Hi Sens 6Hr 541.3 ng/L (0-15) H 04/10/23 12:55 Troponin T Hi Sens 6Hr Delta 7.3 ng/L (0-12) 04/10/23 12:55 C-Reactive Protein 3.0 mg/L (0.0-4.9) 04/11/23 04:50 Total Protein 6.9 g/dL (6.6-8.7) 04/11/23 04:50 Albumin 3.5 g/dL (3.5-5.2) 04/11/23 04:50 Globulin 3.4 g/dL (1.3-4.6) 04/11/23 04:50 Vitamin B12 303 pg/mL (232-1245) 04/10/23 06:55 TSH 0.74 uIU/mL (0.27-4.20) 04/10/23 06:55 Urine Color Light yellow (Yellow) 04/11/23 10:20 Urine Appearance Clear (CLEAR) 04/11/23 10:20 Urine pH 7 (5-7) 04/11/23 10:20 Ur Specific [place] 1.010 (1.005-1.030) 04/11/23 10:20 Urine Protein Neg (Negative) 04/11/23 10:20 Urine Glucose (UA) Norm (Normal) 04/11/23 10:20 Urine Ketones Negative (Negative) 04/11/23 10:20 Urine Blood Neg (Negative) 04/11/23 10:20 Urine Nitrate Negative (Negative) 04/11/23 10:20 Urine Bilirubin Neg (Negative) 04/11/23 10:20 Urine Urobilinogen Norm mg/dL (Negative) 04/11/23 10:20 Ur Leukocyte Esterase Negative (Negative) 04/11/23 10:20 Urine RBC None /hpf (0-2) 04/11/23 10:20 Urine WBC None /hpf (0-5) 04/11/23 10:20 Ur Squamous Epith Cells None /hpf (0-5) 04/11/23 10:20 Amorphous Sediment Trace /hpf 04/11/23 10:20 Urine Bacteria None /hpf (NONE) 04/11/23 10:20 Urine Mucus None /hpf 04/11/23 10:20 Urine Opiates Screen Positive ng/mL (Negative) H 04/10/23 08:30 Ur Barbiturates Screen Negative ng/mL (Negative) 04/10/23 08:30 Ur Phencyclidine Scrn Negative ng/mL (Negative) 04/10/23 08:30 Ur Amphetamines Screen Positive ng/mL (Negative) H 04/10/23 08:30 U Benzodiazepines Scrn Negative ng/mL (Negative) 04/10/23 08:30 Urine Cocaine Screen Negative ng/mL (Negative) 04/10/23 08:30 U Marijuana (THC) Screen Positive ng/mL (Negative) H 04/10/23 08:30 Ethyl Alcohol < 10 mg/dL (0-10) 04/10/23 06:55 Vitals Last Vital Signs Temp 98.0 F 04/12/23 07:36 Pulse 97 04/12/23 08:14 Resp 20 H 04/12/23 08:14 BP 133/86 04/12/23 07:36 Pulse Ox 92 04/12/23 10:28 O2 Del Method Room Air 04/12/23 08:14 O2 Flow Rate 3 04/12/23 04:29 Discharge Plan Discharge Patient Disposition: Home Condition: Stable Prescriptions: New aspirin 81 mg Tablet,Delayed Release (Dr/Ec) 81 mg PO DAILY Qty: 30 0RF atorvastatin 40 mg Tablet 80 mg PO DAILY Qty: 60 0RF clopidogrel 75 mg Tablet 75 mg PO DAILY Qty: 30 11RF lisinopril 10 mg Tablet 10 mg PO DAILY Qty: 30 0RF Continued albuterol sulfate 90 mcg/actuation HFA aerosol inhaler 1 inh INHALATION Q6H PRN (Reason: Shortness Of Breath) Spiriva with HandiHaler 18 mcg capsule, w/inhalation device 1 cap INHALATION DAILY metoprolol succinate 25 mg tablet extended release 24 hr 25 mg PO DAILY Discontinued simvastatin 40 mg tablet 40 mg PO QPM Discharge Orders: Discharge Order (Routine); Ordered 04/12/23 Ordered By: Jeovany Dean Referrals: Farideh Cash FNP [Nurse Practitioner] - 04/19/23 9:30 am Ricky Lagunas FNP [Primary Care Provider] - 04/20/23 9:00 am (You will follow up with Ricky Lagunas at the [facility] on 04/20 at 0900. If you have any questions call ) Discharge Diet: Cardiac Discharge Activity: Increase activity as tolerated Patient Instructions: Methamphetamine Abuse, Coronary Angioplasty (DC), CHF Stoplight, Opioid Safety, Post Angiogram Home Care Instructions Activity Restrictions/Additional Instructions: Don't use meth Stop alcohol and tobacco. Take all meds as prescribed. Keep regular follow up Discharge Attestations Time Spent in Discharge Care*: greater than 30 min Quality Metrics Clinical Quality Measures [ Acute Myocardial Infaction { Clinical Trial Participant: No; Contraindication to aspirin: None; Aspirin prescribed; Contraindication to statin: None; Statin prescribed; Contraindication to PCI: None; PCI performed;}] Coding Level of Care Code 22417 Total time (in minutes) for Discharge: 33 Diagnoses NSTEMI (non-ST elevated myocardial infarction) I21.4 Chronic combined systolic and diastolic congestive heart failure, NYHA class 3 I50.42 Congestive heart failure type: combined Congestive heart failure chronicity: chronic Dilated cardiomyopathy I42.0 Cardiomyopathy type: dilated Methamphetamine abuse F15.10 ETOH abuse F10.10 Nicotine abuse Z72.0
--- NOTE | 2023-04-12 11:34 | PC.NURSE ---
meds to bed called in for pt's new Rx and cont.home meds. pt stated he does not have any of his home meds anymore. notified Dr to get him some supply for his other cont. meds. such as metoprolol.
[2023-04-12 11:42] VITALS: BP 114/69; PULSE 85; TEMP 36.4; O2SAT 96
== END 2023-04-12 14:12 | disposition home or self-care (01) | DRG 251 ==
PROVIDERS: Internal Medicine Cardiovascular Disease; Admitting Provider Internal Medicine; PCP Nurse Practitioner Family; Visit Provider Internal Medicine
DX: I21.4 Non-ST elevation (NSTEMI) myocardial infarction (principal); I42.0 Dilated cardiomyopathy; I50.42 Chronic combined systolic (congestive) and diastolic (congestive) heart failure; I25.10 Atherosclerotic heart disease of native coronary artery without angina pectoris; I11.0 Hypertensive heart disease with heart failure; F15.10 Other stimulant abuse, uncomplicated; J44.9 Chronic obstructive pulmonary disease, unspecified; F10.10 Alcohol abuse, uncomplicated; E86.0 Dehydration; M54.30 Sciatica, unspecified side; Z72.0 Tobacco use; Z79.82 Long term (current) use of aspirin; Z79.02 Long term (current) use of antithrombotics/antiplatelets; Z95.5 Presence of coronary angioplasty implant and graft
CPT/HCPCS: 36415; 71045; 80048; 80053; 80306; 80307; 81001; 82607; 83036; 83735; 84443; 84484; 85025; 85378; 85730; 86140; 92920; 93005; 93306; 93454; 94640; 94760; 96361; 96365; 96367; 96372; 96376; 99152; 99153; A9270; C1725; C1769; C1874; C1887; C1894; J1644; J1650; J2060; J2250; J3010; J7030; J7626; Q0163; Q9967

== ENCOUNTER 2023-04-19 07:26 | Observation (INO) | payer MEDICARE, MEDICAID, SELFPAY ==
[2023-04-19] VITALS (14 sets, daily range): BP systolic 94–179; BP diastolic 69–92; PULSE 67–118; RESP 14–26; TEMP 36.3–37; O2SAT 92–99; BMI 22.8
--- NOTE | 2023-04-19 07:28 | XR_ITS ---
WS: [id number] Exam: XR chest 1V portable [id number] Date/Time of Exam: 04/19/2023 7:31 AM Reason For Exam: dyspnea/cough Comparison 04/15/2018. The lungs are fully expanded. Numerous miliary calcifications seen throughout both lungs suggesting h ealed granulomatous disease. Heart size top limits normal. No consolidated infiltrates are seen. The mediastinum and bony thorax are unremarkable. Moderately advanced DJD of both shoulders. Hyperinflati on. Surgical clips along the RIGHT axillary region and proximal RIGHT humeral region. IMPRESSION: 1. Pulmonary hyperinflation and healed granulomatous disease. 2. No acute process is suspected.
--- NOTE | 2023-04-19 07:28 | W.ED.SOB ---
HPI - SOB/Dyspnea General: Chief Complaint: Shortness of Breath/Dyspnea Stated Complaint: SOB Time Seen by Provider: 04/19/23 07:28 Source: patient Mode of arrival: ambulatory History of Present Illness: HPI Narrative: 62-year-old male presents emergency room complaining of shortness of breath and mild chest discomfort. He has significant orthopnea as well. He has not noticed increased swelling. He was recently hospitalized for congestive heart failure and NSTEMI has an ischemic cardiomyopathy. He has a history of drug and alcohol use as well. No fever sweats or chills he has some moderately productive cough with thin clear mucus. He is not on oxygen at home he is now requiring 4 L by nasal cannula. MD elicited complaint: shortness of breath and cough Pertinent past history: COPD, congestive heart failure and other (Drug/alcohol use) Exacerbating factors: nothing Relieving factors: nothing Known history of: COPD and congestive heart failure Associated symptoms: Reports chest congestion and orthopnea; Deny abdominal pain, chest pain, cough, diaphoresis, dizziness, extremity pain, fever(s), hemoptysis, lightheadedness, myalgias, nausea, palpitations, paresthesias, polydipsia, polyuria, rash, sense of impending doom, syncope or vomiting Review of Systems Const: Denies: fever(s), chills or diaphoresis Card: Reports: orthopnea; Denies: chest pain, palpitations, lightheadedness or syncope Resp: Reports: chest congestion; Denies: dyspnea or hemoptysis GI: Denies: abdominal pain, nausea or vomiting : Denies: dysuria, urinary frequency or urinary urgency Musc: Denies: neck pain, back pain or extremity pain Skin/Breast: Denies: rash Neuro: Denies: dizziness Endo: Denies: polyuria or polydipsia PFSH ED PFSH: Medical History Cardiomyopathy CHF (congestive heart failure), NYHA class III NSTEMI (non-ST elevated myocardial infarction) DTs (delirium tremens) Scabies Surgical History History of surgery on arm Social History Smoking and tobacco/nicotine status: current every day tobacco/nicotine user Alcohol intake: current Alcohol intake frequency: 3 or more drinks per day Alcohol type: hard liquor Substance/Drug Use: current Physical Exam Const: GENERAL APPEARANCE: cooperative ORIENTATION/CONSCIOUSNESS: Yes awake, Yes oriented to person, Yes oriented to place and Yes oriented to time HENMT: COMMON NORMALS: normocephalic, atraumatic and hearing grossly normal bilaterally HEAD & SCALP: normocephalic and atraumatic Resp: COMMON NORMALS: normal respiratory effort, No retractions and No use of accessory muscles AUSCULTATION: crackles and wheezes Cardio: COMMON NORMALS: regular rate, regular rhythm and No murmurs present (Cardio) RATE: regular rate RHYTHM: regular rhythm GI: COMMON NORMALS: Soft to palpation and No hepatosplenomegaly present AUSCULTATION: Yes normoactive bowel sounds PALPATION: Yes Soft to palpation, No Tenderness to palpation present (GI), No Guarding due to palpation present (GI) and Yes No hepatosplenomegaly present Extremity: COMMON NORMALS: normal to inspection, capillary refill normal, no clubbing, cyanosis or edema, no calf tenderness and no pedal edema Neuro: SENSORIUM/ORIENTATION: Yes oriented to person, Yes oriented to place and Yes oriented to time Skin: COMMON NORMALS: no rashes or lesions noted GENERAL SKIN EXAM: no rashes or lesions noted Course Vital Signs: Vital signs: Vital Signs Temperature 97.4 F L 04/19/23 07:26 Pulse Rate 67 04/19/23 11:24 Respiratory Rate 26 H 04/19/23 08:18 Blood Pressure 141/80 04/19/23 11:24 Pulse Oximetry 92 04/19/23 09:03 Oxygen Delivery Me thod Nasal Cannula 04/19/23 09:03 Oxygen Flow Rate 2 04/19/23 09:03 MDM - SOB/Dyspnea Medical Decision Making Chart reviewed after patient arrived. He recently had an NSTEMI is complaining shortness of breath and some back pain although he does have chronic back pain was in his upper back. He was given nebs steroids and diuresed. He has chronic interstitial changes with mildly elevated BNP. He did show improvement after diuresis, he diuresed fairly extensively. His troponin showed a positive +18. This may be from heart strain he did ingest some alcohol yesterday which may have precipitated fluid overload he has an EF in the 30% range. Discussed with hospitalist placement observation for now Medical Records I reviewed the patient's medical records. Lab Data I reviewed the patient's lab results. 04/19/23 08:14 04/19/23 08:14 Labs/Radiology: Laboratory Results WBC 15.89 10^3/uL (3.29-11.43) H 04/19/23 08:14 RBC 4.44 10^6/uL (3.85-5.65) 04/19/23 08:14 Hgb 12.70 g/dL (11.27-16.99) 04/19/23 08:14 Hct 40.8 % (37-53) 04/19/23 08:14 MCV 91.9 fl (82-101) 04/19/23 08:14 MCH 28.6 pg (27-33) 04/19/23 08:14 MCHC 31.1 g/dL (30-55) 04/19/23 08:14 RDW 15.7 % (12.1-15.1) H 04/19/23 08:14 Plt Count 193 10^3/cmm (157-399) 04/19/23 08:14 MPV 11.1 fL (7.4-10.4) H 04/19/23 08:14 Neut % (Auto) 73.8 % 04/19/23 08:14 Lymph % (Auto) 10.8 % 04/19/23 08:14 Dillon % (Auto) 13.5 % 04/19/23 08:14 Eos % (Auto) 0.8 % 04/19/23 08:14 Baso % (Auto) 0.4 % 04/19/23 08:14 Neut # (Auto) 11.73 10^3/uL (1.8-7.7) H 04/19/23 08:14 Lymph # (Auto) 1.7 10^3/uL (0.8-4.8) 04/19/23 08:14 Dillon # (Auto) 2.1 10^3/uL (0.2-0.9) H 04/19/23 08:14 Eos # (Auto) 0.1 10^3/uL (0.0-0.8) 04/19/23 08:14 Baso # (Auto) 0.1 10^3/uL (0.0-0.1) 04/19/23 08:14 Nucleated RBC % (auto) 0 % 04/19/23 08:14 Nucleated RBCs # 0.0 /100WBC 04/19/23 08:14 Specimen Type Arterial 04/19/23 07:32 Sample Site Radial, left 04/19/23 07:32 ABG pH 7.36 (7.35-7.45) 04/19/23 07:32 ABG pCO2 42.9 mmHg (35-45) 04/19/23 07:32 ABG pO2 68.2 mmHg (80.0-100.0) L 04/19/23 07:32 ABG PO2/FiO2 Ratio 0 04/19/23 07:32 ABG HCO3 24.4 mmol/L (22-26) 04/19/23 07:32 ABG O2 Saturation 92.4 04/19/23 07:32 ABG Base Excess -1.1 mmol/L (-2.0-2.0) 04/19/23 07:32 Maik Test Pos 04/19/23 07:32 A-a O2 Gradient 22.1 mmHg (5-10) H 04/19/23 07:32 Hematocrit 38.3 % (42-52) L 04/19/23 07:32 Hgb O2 Saturation 90.3 % (95-100) L 04/19/23 07:32 Carboxyhemoglobin 1.8 %THgb (0.4-20.1) 04/19/23 07:32 Methemoglobin 0.4 % (0.4-1.5) 04/19/23 07:32 Total Hemoglobin 12.5 g/dL (14-18) L 04/19/23 07:32 Sodium 142.0 mmol/L (131-143) 04/19/23 07:32 Potassium 4.0 mmol/L (3.5-5.0) 04/19/23 07:32 Glucose 117.0 mg/dL (70-115) H 04/19/23 07:32 Ionized Calcium 1.3 mmol/L (1.1-1.4) 04/19/23 07:32 O2 Delivery Device Nc 04/19/23 07:32 O2 Liters/Min 4.5 % 04/19/23 07:32 FiO2 40.0 % 04/19/23 07:32 Non Destructive Testing Technician ID Heidi 04/19/23 07:32 Sodium 141 mmol/L (136-145) 04/19/23 08:14 Potassium 3.9 mmol/L (3.5-5.1) 04/19/23 08:14 Chloride 106 mmol/L (98-107) 04/19/23 08:14 Carbon Dioxide 24 mmol/L (22-29) 04/19/23 08:14 Anion Gap 14.9 (5-19) 04/19/23 08:14 BUN 15 mg/dL (8-23) 04/19/23 08:14 Creatinine 0.8 mg/dL (0.7-1.2) 04/19/23 08:14 GFR Calculation 97.6 mL/min (90-130) 04/19/23 08:14 Glucose 107 mg/dL (65-115) 04/19/23 08:14 Calculated Osmolality 293 mOsm/kg (285-295) 04/19/23 08:14 Calcium 9.1 mg/dL (8.5-10.5) 04/19/23 08:14 Total Bilirubin 0.3 mg/dL (0.15-1.2) 04/19/23 08:14 AST 50 U/L (0-40) H 04/19/23 08:14 ALT 30 U/L (0-41) 04/19/23 08:14 Alkaline Phosphatase 139 U/L (40-130) H 04/19/23 08:14 Troponin T Baseline 64 ng/L (0-15) H 04/19/23 08:14 Troponin T 120 Minute 82.49 ng/L (0-15) H 04/19/23 10:20 Delta Troponin T 18.49 ABS# (0-10) H* 04/19/23 10:20 NT-Pro-B Natriuret Pep 2273 pg/mL (0-125) H 04/19/23 08:14 Total Protein 7.0 g/dL (6.6-8.7) 04/19/23 08:14 Albumin 3.5 g/dL (3.5-5.2) 04/19/23 08:14 Globulin 3.5 g/dL (1.3-4.6) 04/19/23 08:14 Urine Color Yellow (Yellow) 04/19/23 08:36 Urine Appearance Clear (CLEAR) 04/19/23 08:36 Urine pH 7 (5-7) 04/19/23 08:36 Ur Specific [place] 1.010 (1.005-1.030) 04/19/23 08:36 Urine Protein Neg (Negative) 04/19/23 08:36 Urine Glucose (UA) Norm (Normal) 04/19/23 08:36 Urine Ketones Negative (Negative) 04/19/23 08:36 Urine Blood Neg (Negative) 04/19/23 08:36 Urine Nitrate Negative (Negative) 04/19/23 08:36 Urine Bilirubin Neg (Negative) 04/19/23 08:36 Urine Urobilinogen Norm mg/dL (Negative) 04/19/23 08:36 Ur Leukocyte Esterase Negative (Negative) 04/19/23 08:36 Urine Opiates Screen Negative ng/mL (Negative) 04/19/23 08:36 Ur Barbiturates Screen Negative ng/mL (Negative) 04/19/23 08:36 Ur Phencyclidine Scrn Negative ng/mL (Negative) 04/19/23 08:36 Ur Amphetamines Screen Negative ng/mL (Negative) 04/19/23 08:36 U Benzodiazepines Scrn Positive ng/mL (Negative) H 04/19/23 08:36 Urine Cocaine Screen Negative ng/mL (Negative) 04/19/23 08:36 U Marijuana (THC) Screen Positive ng/mL (Negative) H 04/19/23 08:36 Ethyl Alcohol < 10 mg/dL (0-10) 04/19/23 08:14 All radiology interpretation(s) finalized by discharge Discharge Plan Discharge Admit Provider: Jeovany Dean Condition: Stable Coding Level of Care Code ED Repairer Controller Tester for Jethro Joyner
--- NOTE | 2023-04-19 07:29 | ECG_ITS ---
[facility] Test Date: 2023-04-19 Pat Name: April Mancia Department: Room: Gender: Male Program Counselor: : 1960 Requested By: Christopher Navarro Order Number: [id number] Afshan MD: Kam Davis M.D. Measurements Intervals [place] Rate: 114 P: 57 LA: 129 QRS: 51 QRSD: 104 T: -4 QT: 330 QTc: 455 Interpretive Statements SINUS TACHYCARDIA POSSIBLE LEFT ATRIAL ENLARGEMENT [-0.1mV P-WAVE IN V1/V2] NONSPECIFIC ST & T-WAVE ABNORMALITY ABNORMAL RHYTHM ECG Compared to ECG 04/10/2023 13:01:16 Possible ischemia no longer present T-wave abnormality still present Electronically Signed On 04-19-2023 21:46:04 BOILER FITTER by Kam Davis M.D. [id number]
[2023-04-19 07:46] LABS: ABG PCO2 42.9 mmHg (35-45); ABG PH Result 7.36 (7.35-7.45); Alveolar-Arterial Oxygen Gradi 22.1 mmHg (5-10); Arterial Blood Gas Hematocrit 38.3 % (42-52); Base Excess ABG -1.1 mmol/L (-2.0-2.0); Blood Gas Allen Test Pos; Blood Gas LPM 4.5 %; Blood Gas Operator Identificat MONRO; Blood Gas Sample Site Radial, left; Blood Gas Sample Type Arterial; Carboxyhemoglobin 1.8 %THgb (0.4-20.1); HCO3 ABG 24.4 mmol/L (22-26); HGB O2 Sat 90.3 % (95-100); Ionized Calcium Level - ABG 1.3 mmol/L (1.1-1.4); Methemoglobin 0.4 % (0.4-1.5); Oxygen Device NC; Oxygen Saturation ABG 92.4; PO2 ABG 68.2 mmHg (80.0-100.0); PO2 FiO2 Ratio Arterial Blood 0; Total Hemoglobin 12.5 g/dL (14-18)
[2023-04-19] MEDS: dexamethasone 10 mg/mL INJ IM (08:16)
[2023-04-19] MEDS: ipratropium-albuterol 3 mL Neb INHALATION ×3 (08:17→20:00)
[2023-04-19] MEDS: FUROsemide 10 mg/mL SDV 10mL 60 MG IVP (08:17)
[2023-04-19 08:22] LABS: Basophils # 0.1 10^3/uL (0.0-0.1); Basophils % 0.4 %; Eosinophils # 0.1 10^3/uL (0.0-0.8); Eosinophils % 0.8 %; Hematocrit 40.8 % (37-53); Lymphocytes # 1.7 10^3/uL (0.8-4.8); Lymphocytes % 10.8 %; Mean Corpuscular HGB Conc 31.1 g/dL (30-55); Mean Corpuscular Hemoglobin 28.6 pg (27-33); Mean Corpuscular Volume 91.9 fl (82-101); Mean Platelet Volume 11.1 fL (7.4-10.4); Monocytes # 2.1 10^3/uL (0.2-0.9); Monocytes % 13.5 %; Neutrophils # 11.73 10^3/uL (1.8-7.7); Neutrophils % 73.8 %; Nucleated Red Blood Cells % 0 %; Platelet Count 193 10^3/cmm (157-399); Red Blood Count 4.44 10^6/uL (3.85-5.65); Red Cell Distribution Width 15.7 % (12.1-15.1); White Blood Count 15.89 10^3/uL (3.29-11.43)
[2023-04-19 08:43] LABS: Troponin(5th) Baseline 64 ng/L (0-15)
[2023-04-19] MEDS: acetaminophen 500 mg Tablet 1000 MG PO (08:45)
[2023-04-19 08:50] LABS: Alanine Aminotransferase 30 U/L (0-41); Albumin Level 3.5 g/dL (3.5-5.2); Alkaline Phosphatase 139 U/L (40-130); Anion Gap 14.9 (5-19); Aspartate Amino Transferase 50 U/L (0-40); Blood Urea Nitrogen 15 mg/dL (8-23); Calcium 9.1 mg/dL (8.5-10.5); Carbon Dioxide 24 mmol/L (22-29); Chloride 106 mmol/L (98-107); Globulin 3.5 g/dL (1.3-4.6); Glomerular Filtration Rate 97.6 mL/min (90-130); Glucose 107 mg/dL (65-115); NT Pro B Type Natriuretic Pept 2273 pg/mL (0-125); Osmolality Calculated 293 mOsm/kg (285-295); Potassium 3.9 mmol/L (3.5-5.1); Sodium 141 mmol/L (136-145); Total Bilirubin 0.3 mg/dL (0.15-1.2)
[2023-04-19 08:51] LABS: Alcohol Level < 10 mg/dL (0-10)
[2023-04-19 09:09] LABS: Add Urine Microscopic? NO; Bilirubin Urine Neg (Negative); Blood Urine Neg (Negative); Glucose Urine UA Norm (Normal); Ketones Urine Negative (Negative); Leukocyte Esterase Urine Negative (Negative); Nitrate Urine Negative (Negative); Protein Urine Neg (Negative); Urine Appearance Clear (CLEAR); Urine Color Yellow (Yellow); Urobilinogen Urine Norm (Negative); pH Urine 7 (5-7)
[2023-04-19 09:11] LABS: Charge for UA Resulting for Rev
[2023-04-19 09:16] LABS: Amphetamines Screen Urine Negative (Negative); Barbiturates Screen Urine Negative (Negative); Benzodiazepines Screen Urine Positive (Negative); Cocaine Screen Urine Negative (Negative); Opiate Screen Urine Negative (Negative); PCP Screen Urine Negative (Negative); THC Screen Urine Positive (Negative)
--- NOTE | 2023-04-19 09:29 | ECG_ITS ---
[facility] Test Date: 2023-04-19 Pat Name: April Mancia Department: Room: Gender: Male Test Engineer: : 1960 Requested By: Christopher Navarro Order Number: [id number] Afshan MD: Kam Davis M.D. Measurements Intervals [place] Rate: 115 P: 67 MA: 133 QRS: 55 QRSD: 103 T: 44 QT: 335 QTc: 464 Interpretive Statements SINUS TACHYCARDIA POSSIBLE LEFT ATRIAL ENLARGEMENT [-0.1mV P-WAVE IN V1/V2] NONSPECIFIC ST & T-WAVE ABNORMALITY ABNORMAL RHYTHM ECG Compared to ECG 04/19/2023 07:37:35 No significant changes Electronically Signed On 04-19-2023 21:51:00 HEAD OF CYTOGENETICS by Kam Davis M.D. [id number]
[2023-04-19 10:53] LABS: Troponin 5 2HR 82.49 ng/L (0-15)
[2023-04-19 10:56] LABS: Troponin 5 2HR Delta 18.49 ABS# (0-10)
[2023-04-19] MEDS: nitroglycerin 1 gm/inch oint Pkt 1 INCH TOPICAL (11:24)
[2023-04-19] MEDS: enoxaparin 80 mg/0.8 mL Syringe 70 MG SUBCUT (11:25)
--- NOTE | 2023-04-19 11:46 | P.HP_ITS ---
Providers/Chief Complaint 2 Admitting Physician: Jeovany Dean MD Primary Care Provider: Ricky Lagunas Chief Complaint: SOB History of Present Illness April Mancia is a 62 year old male presenting to the emergency department with shortness of breath starting last night. He was recently discharged from the hospital secondary to non-ST elevation myocardial infarction for which he received an RCA angioplasty. Discharge occurred on April 12. He states since that time he has not been using methamphetamine. He has been drinking intermittently and had quite a bit yesterday. He has been taking his medicines. He has had exposure to marijuana, who I discussed with him benzodiazepine exposure. He reports when he was short of breath he felt like he had some chest discomfort but he does not have significantly currently. He reports when he was short of breath he was wheezing and coughing but after his IV Lasix in the emergency department he feels much better and is able to lay fairly flat. He has had no vomiting, diarrhea, fever. Review of Systems 2 General: Reports: 10 or more systems reviewed and unremarkable except in HPI and below Card: Reports: chest pain and orthopnea Resp: Reports: dyspnea and wheezing; Denies: productive cough or non-productive cough GI: Denies: abdominal pain Medications/Allergies Home Medications Medication Instructions Recorded Confirmed Last Taken Type albuterol sulfate 90 mcg/actuation 1 inh inhalation Q6H PRN Shortness 04/12/23 04/19/23 Unknown Rx aerosol inhaler Of Breath #1 g aspirin 81 mg tablet,delayed 81 mg PO DAILY #30 tabs 04/12/23 04/19/23 04/18/23 Rx release atorvastatin 40 mg tablet 80 mg (2 x 40 mg) PO DAILY #60 tabs 04/12/23 04/19/23 04/18/23 Rx clopidogrel 75 mg tablet 75 mg PO DAILY #30 tabs 04/12/23 04/19/23 04/18/23 Rx fluticasone fur. 200 mcg-umeclid 1 inh inhalation DAILY #60 ea 04/12/23 04/19/23 04/18/23 Rx 62.5 mcg-vilant 25 mcg inhalat.powder (Trelegy Ellipta) fluticasone propionate 50 2 spray nasal BID #1 g 04/12/23 04/19/23 04/18/23 Rx mcg/actuation nasal spray,suspension lisinopril 10 mg tablet 10 mg PO DAILY #30 tabs 04/12/23 04/19/23 04/18/23 Rx metoprolol succinate 25 mg 25 mg PO DAILY #30 tabs 04/12/23 04/19/23 04/18/23 Rx tablet,extended release 24 hr Allergies Allergy/AdvReac Type Severity Reaction Status Date / Time No Known Allergies Allergy Verified 04/19/23 07:36 PFSH Acute 2 PFSH: Medical History Cardiomyopathy CHF (congestive heart failure), NYHA class III NSTEMI (non-ST elevated myocardial infarction) DTs (delirium tremens) Scabies Surgical History History of surgery on arm Social History Smoking and tobacco/nicotine status: current every day tobacco/nicotine user Alcohol intake: current Alcohol intake frequency: 3 or more drinks per day Alcohol type: hard liquor Substance/Drug Use: current Vitals/I&O/Wt Last Vital Signs Temp 97.4 F L 04/19/23 07:26 Pulse 67 04/19/23 11:24 Resp 26 H 04/19/23 08:18 BP 141/80 04/19/23 11:24 Pulse Ox 92 04/19/23 09:03 O2 Del Method Nasal Cannula 04/19/23 09:03 O2 Flow Rate 2 04/19/23 09:03 Weight last 48 hrs Weight 70.307 kg Physical Exam 2 Narrative: General exam is a white male, no distress, laying flat HEENT: Atraumatic normocephalic. Oropharynx clear Neck is supple with no thyromegaly Cardiovascular regular rate and rhythm, no murmur, heart sounds distant Lungs diminished breath sounds at the bases. Occasional wheeze. No crackles Abdomen is soft, positive bowel sounds no obvious organomegaly Extremities no sinus clubbing edema, cap refill brisk Skin no rash Neuro no obvious focal deficits Data 04/19/23 08:14 04/19/23 08:14 Other Labs: ABG demonstrates pH 7.36, pCO2 43, pO2 68 on 4.5 L LFTs demonstrate slight elevation of AST of 50. Alk phos 139 Troponin baseline 64 with repeat of 82 BNP elevated at 2273 urinalysis negative Urine drug screen positive for benzos and marijuana Chest x-ray which I reviewed bilateral infiltrate consistent with granulomatous disease and evidence of COPD. EKG on arrival to the emergency department demonstrated sinus tachycardia, normal axis, nonspecific changes per my read A&P Assessment and plan (1) Acute pulmonary edema: Patient presented with acute pulmonary edema symptomatology, alleviated quickly with diuresis. Troponin is elevated likely secondary to CHF He has a known ischemic cardiomyopathy with EF around 25%. He had significant fluid intake yesterday including significant amounts of alcohol. Discussed with him avoiding alcohol Continue Lasix 40 mg IV every 12 hours He appears much better compensated than he was on admission and oxygen is weaning quickly CBC, CMP in the morning Telemetry Await 6-hour troponin Likely discharge tomorrow with discussion regarding avoiding large amounts of fluid, alcohol, drugs, and initiation of oral diuretic on discharge No need to repeat echo (2) CHF (congestive heart failure), NYHA class III: See above, presentation consistent with acute systolic heart failure Continue FIORELLA inhibitor and beta-nathan Qualifiers: Congestive heart failure type: combined Congestive heart failure chronicity: chronic Qualified Code(s): I50.42 - Chronic combined systolic (congestive) and diastolic (congestive) heart failure (3) COPD (chronic obstructive pulmonary disease): Cannot completely rule out acute COPD exacerbation. He was given breathing treatments and dexamethasone in the emergency department Continue DuoNeb every 4 hours, budesonide twice daily Prednisone 40 mg a day No need for antibiotic at this time (4) Coronary artery disease: Continue patient's aspirin, Plavix, beta-nathan, statin, Plan Substance use History of alcohol use. No withdrawal last time. Observe but no [facility] protocol currently. Other medical problems as outlined in past medical history Full code He received a dose of Lovenox in the emergency department which will cover greater than 24 hours for DVT prophylaxis guidelines met. Will likely discharge tomorrow morning. Attestations 2 Medical Necessity Statement*: Will need less than 2 midnight stay for evaluation and treatment of acute CHF Diagnoses Acute pulmonary edema J81.0 Chronic combined systolic and diastolic congestive heart failure, NYHA class 3 I50.42 Congestive heart failure type: combined Congestive heart failure chronicity: chronic COPD (chronic obstructive pulmonary disease) J44.9 Coronary artery disease I25.10 Time Spent (min) 45
--- NOTE | 2023-04-19 13:11 | PC.NURSE ---
received into room 105 from er at 1200.pt alert and oriented x 4.states came to er for sob.pt does not appear in distress.o2 sats mid 90 s on room air.st on monitor.oriented to room environment.instructed to notify staff for any increase in sob,chest pain,or for any concerns at all.pt verb understanding of instructions
--- NOTE | 2023-04-19 13:29 | ECG_ITS ---
[facility] Test Date: 2023-04-19 Pat Name: April Mancia Department: Room: 105 Gender: Male Fabrication Inspector: : 1960 Requested By: Christopher Navarro Order Number: [id number] Afshan MD: Kam Davis M.D. Measurements Intervals [place] Rate: 104 P: 63 NE: 119 QRS: 51 QRSD: 106 T: -85 QT: 345 QTc: 455 Interpretive Statements SINUS TACHYCARDIA WITH SHORT NE INTERVAL POSSIBLE LEFT ATRIAL ENLARGEMENT [-0.1mV P-WAVE IN V1/V2] ST DEVIATION AND MODERATE T-WAVE ABNORMALITY, CONSIDER LATERAL ISCHEMIA [-0.1+ mV T-WAVE IN I/aVL/V5/V6] ST DEVIATION AND MODERATE T-WAVE ABNORMALITY, CONSIDER INFERIOR ISCHEMIA [-0.1+ mV T-WAVE IN II/aVF] Compared to ECG 04/19/2023 09:22:30 Short NE interval now present Possible ischemia now present T-wave abnormality still present Electronically Signed On 04-19-2023 21:53:36 UPSETTER SETTER UP by Kam Davis M.D. [id number]
[2023-04-19 14:35] LABS: Troponin 5 6HR 81.55 ng/L (0-15)
[2023-04-19 14:38] LABS: Troponin 5 6HR Delta 17.55 ng/L (0-12)
[2023-04-19] MEDS: fluticasone nasal spray 16gm Btl 2 SPRAY NASAL (17:57)
[2023-04-19] MEDS: acetaminophen 325 mg Tablet 650 MG PO (18:01)
[2023-04-19] MEDS: FUROsemide 10 mg/mL SDV 4mL 40 MG IVP (19:32)
[2023-04-19] MEDS: budesonide 0.5 mg/2 mL Neb INHALATION (20:00)
[2023-04-19] MEDS: lidocaine 2% viscous 15 ML, aluminum-mag hydrox-simethicon 30 ML, sucralfate oral liq 1 GM PO (21:02)
[2023-04-20] VITALS (9 sets, daily range): BP systolic 98–125; BP diastolic 60–66; PULSE 94–104; RESP 13–29; TEMP 36.6–36.8; O2SAT 93–97; BMI 22.0
[2023-04-20] MEDS: ipratropium-albuterol 3 mL Neb INHALATION ×3 (00:57→11:31)
[2023-04-20 04:00] LABS: Basophils % 0.2 %; Hematocrit 40.7 % (37-53); Lymphocytes # 2.6 10^3/uL (0.8-4.8); Lymphocytes % 15.6 %; Mean Corpuscular HGB Conc 32.2 g/dL (30-55); Mean Corpuscular Hemoglobin 28.4 pg (27-33); Mean Corpuscular Volume 88.1 fl (82-101); Mean Platelet Volume 11.4 fL (7.4-10.4); Monocytes # 2.6 10^3/uL (0.2-0.9); Monocytes % 15.3 %; Neutrophils % 68.5 %; Nucleated Red Blood Cells % 0 %; Platelet Count 236 10^3/cmm (157-399); Red Blood Count 4.62 10^6/uL (3.85-5.65); Red Cell Distribution Width 15.8 % (12.1-15.1)
[2023-04-20 06:00] LABS: Alanine Aminotransferase 25 U/L (0-41); Albumin Level 3.8 g/dL (3.5-5.2); Alkaline Phosphatase 112 U/L (40-130); Anion Gap 18.7 (5-19); Aspartate Amino Transferase 32 U/L (0-40); Blood Urea Nitrogen 19 mg/dL (8-23); Calcium 8.8 mg/dL (8.5-10.5); Carbon Dioxide 24 mmol/L (22-29); Chloride 99 mmol/L (98-107); Globulin 2.9 g/dL (1.3-4.6); Glomerular Filtration Rate 85.2 mL/min (90-130); Glucose 108 mg/dL (65-115); Magnesium 1.9 mg/dL (1.7-2.3); Osmolality Calculated 289 mOsm/kg (285-295); Potassium 3.7 mmol/L (3.5-5.1); Sodium 138 mmol/L (136-145); Total Bilirubin 0.9 mg/dL (0.15-1.2); Total Protein 6.7 g/dL (6.6-8.7)
[2023-04-20] MEDS: aspirin 81 mg EC Tablet PO (08:24)
--- NOTE | 2023-04-20 08:24 | PM.DCS ---
Discharge Providers Date of Admission: 04/19/23 11:15 Date of Discharge: April 20, 2023 Attending Provider at Admission: Jeovany Dean MD Attending Provider at Discharge: Jeovany Dean MD Primary Care Provider: Ricky Lagunas Diagnoses at Discharge Discharge Diagnosis (1) Acute pulmonary edema: Status: Acute (2) CHF (congestive heart failure), NYHA class III: Status: Acute Qualifiers: Congestive heart failure chronicity: chronic Congestive heart failure type: combined Qualified Code(s): I50.42 - Chronic combined systolic (congestive) and diastolic (congestive) heart failure (3) COPD (chronic obstructive pulmonary disease): Status: Acute (4) Coronary artery disease: Status: Acute Reason for Visit Reason for Visit: SOB Hospital Course Hospital Course Patient is a 62-year-old white male with known ischemic cardiomyopathy and history of substance use who presented to the hospital with acute pulmonary edema. He had had a large amount of alcohol, prior to this occurring. He reported he was compliant with his medication. He denied any significant concerning chest discomfort. Troponin was elevated, consistent with acute CHF exacerbation. He was given IV Lasix, and quickly responded. He was monitored overnight, placed on p.o. Lasix. The following day the day of discharge he was feeling good. He was on room air. He had no chest discomfort or edema. It was thought he could go home with instructions regarding CHF, instructions not to do any methamphetamine, alcohol, or smoke. He will follow-up with his primary care provider next week, and have a BMP at that time. He will also follow-up with cardiology. He was given an opportunity ask questions, and agreed with the plan. Physical Exam Narrative: General exam no distress Neck is supple Cardiovascular regular rate and rhythm, heart sounds distant Lungs diminished breath sounds but no wheezes or crackles Abdomen is soft Extremities no cyanosis clubbing or edema Discharge Data Studies Completed and Pending Completed Studies During Hospitalization Category Date Time Status XR chest 1V portable [id number] Stat Exams 04/19/23 07:28 Completed Laboratory Results WBC 16.80 10^3/uL (3.29-11.43) H 04/20/23 03:08 RBC 4.62 10^6/uL (3.85-5.65) 04/20/23 03:08 Hgb 13.10 g/dL (11.27-16.99) 04/20/23 03:08 Hct 40.7 % (37-53) 04/20/23 03:08 MCV 88.1 fl (82-101) 04/20/23 03:08 MCH 28.4 pg (27-33) 04/20/23 03:08 MCHC 32.2 g/dL (30-55) 04/20/23 03:08 RDW 15.8 % (12.1-15.1) H 04/20/23 03:08 Plt Count 236 10^3/cmm (157-399) 04/20/23 03:08 MPV 11.4 fL (7.4-10.4) H 04/20/23 03:08 Neut % (Auto) 68.5 % 04/20/23 03:08 Lymph % (Auto) 15.6 % 04/20/23 03:08 Mora % (Auto) 15.3 % 04/20/23 03:08 Eos % (Auto) 0.0 % 04/20/23 03:08 Baso % (Auto) 0.2 % 04/20/23 03:08 Neut # (Auto) 11.50 10^3/uL (1.8-7.7) H 04/20/23 03:08 Lymph # (Auto) 2.6 10^3/uL (0.8-4.8) 04/20/23 03:08 Mora # (Auto) 2.6 10^3/uL (0.2-0.9) H 04/20/23 03:08 Eos # (Auto) 0.0 10^3/uL (0.0-0.8) 04/20/23 03:08 Baso # (Auto) 0.0 10^3/uL (0.0-0.1) 04/20/23 03:08 Nucleated RBC % (auto) 0 % 04/20/23 03:08 Nucleated RBCs # 0.0 /100WBC 04/20/23 03:08 Specimen Type Arterial 04/19/23 07:32 Sample Site Radial, left 04/19/23 07:32 ABG pH 7.36 (7.35-7.45) 04/19/23 07:32 ABG pCO2 42.9 mmHg (35-45) 04/19/23 07:32 ABG pO2 68.2 mmHg (80.0-100.0) L 04/19/23 07:32 ABG PO2/FiO2 Ratio 0 04/19/23 07:32 ABG HCO3 24.4 mmol/L (22-26) 04/19/23 07:32 ABG O2 Saturation 92.4 04/19/23 07:32 ABG Base Excess -1.1 mmol/L (-2.0-2.0) 04/19/23 07:32 Maik Test Pos 04/19/23 07:32 A-a O2 Gradient 22.1 mmHg (5-10) H 04/19/23 07:32 Hematocrit 38.3 % (42-52) L 04/19/23 07:32 Hgb O2 Saturation 90.3 % (95-100) L 04/19/23 07:32 Carboxyhemoglobin 1.8 %THgb (0.4-20.1) 04/19/23 07:32 Methemoglobin 0.4 % (0.4-1.5) 04/19/23 07:32 Total Hemoglobin 12.5 g/dL (14-18) L 04/19/23 07:32 Sodium 142.0 mmol/L (131-143) 04/19/23 07:32 Potassium 4.0 mmol/L (3.5-5.0) 04/19/23 07:32 Glucose 117.0 mg/dL (70-115) H 04/19/23 07:32 Ionized Calcium 1.3 mmol/L (1.1-1.4) 04/19/23 07:32 O2 Delivery Device Nc 04/19/23 07:32 O2 Liters/Min 4.5 % 04/19/23 07:32 FiO2 40.0 % 04/19/23 07:32 Geoscientist ID Monro 04/19/23 07:32 Sodium 138 mmol/L (136-145) 04/20/23 03:08 Potassium 3.7 mmol/L (3.5-5.1) 04/20/23 03:08 Chloride 99 mmol/L (98-107) 04/20/23 03:08 Carbon Dioxide 24 mmol/L (22-29) 04/20/23 03:08 Anion Gap 18.7 (5-19) 04/20/23 03:08 BUN 19 mg/dL (8-23) 04/20/23 03:08 Creatinine 0.9 mg/dL (0.7-1.2) 04/20/23 03:08 GFR Calculation 85.2 mL/min (90-130) L 04/20/23 03:08 Glucose 108 mg/dL (65-115) 04/20/23 03:08 Calculated Osmolality 289 mOsm/kg (285-295) 04/20/23 03:08 Calcium 8.8 mg/dL (8.5-10.5) 04/20/23 03:08 Magnesium 1.9 mg/dL (1.7-2.3) 04/20/23 03:08 Total Bilirubin 0.9 mg/dL (0.15-1.2) 04/20/23 03:08 AST 32 U/L (0-40) 04/20/23 03:08 ALT 25 U/L (0-41) 04/20/23 03:08 Alkaline Phosphatase 112 U/L (40-130) 04/20/23 03:08 Troponin T Baseline 64 ng/L (0-15) H 04/19/23 08:14 Troponin T 120 Minute 82.49 ng/L (0-15) H 04/19/23 10:20 Delta Troponin T 18.49 ABS# (0-10) H* 04/19/23 10:20 Troponin T Hi Sens 6Hr 81.55 ng/L (0-15) H 04/19/23 13:58 Troponin T Hi Sens 6Hr Delta 17.55 ng/L (0-12) H* 04/19/23 13:58 NT-Pro-B Natriuret Pep 2273 pg/mL (0-125) H 04/19/23 08:14 Total Protein 6.7 g/dL (6.6-8.7) 04/20/23 03:08 Albumin 3.8 g/dL (3.5-5.2) 04/20/23 03:08 Globulin 2.9 g/dL (1.3-4.6) 04/20/23 03:08 Urine Color Yellow (Yellow) 04/19/23 08:36 Urine Appearance Clear (CLEAR) 04/19/23 08:36 Urine pH 7 (5-7) 04/19/23 08:36 Ur Specific Pickrell 1.010 (1.005-1.030) 04/19/23 08:36 Urine Protein Neg (Negative) 04/19/23 08:36 Urine Glucose (UA) Norm (Normal) 04/19/23 08:36 Urine Ketones Negative (Negative) 04/19/23 08:36 Urine Blood Neg (Negative) 04/19/23 08:36 Urine Nitrate Negative (Negative) 04/19/23 08:36 Urine Bilirubin Neg (Negative) 04/19/23 08:36 Urine Urobilinogen Norm mg/dL (Negative) 04/19/23 08:36 Ur Leukocyte Esterase Negative (Negative) 04/19/23 08:36 Urine Opiates Screen Negative ng/mL (Negative) 04/19/23 08:36 Ur Barbiturates Screen Negative ng/mL (Negative) 04/19/23 08:36 Ur Phencyclidine Scrn Negative ng/mL (Negative) 04/19/23 08:36 Ur Amphetamines Screen Negative ng/mL (Negative) 04/19/23 08:36 U Benzodiazepines Scrn Positive ng/mL (Negative) H 04/19/23 08:36 Urine Cocaine Screen Negative ng/mL (Negative) 04/19/23 08:36 U Marijuana (THC) Screen Positive ng/mL (Negative) H 04/19/23 08:36 Ethyl Alcohol < 10 mg/dL (0-10) 04/19/23 08:14 Vitals Last Vital Signs Temp 98.2 F 04/20/23 07:23 Pulse 99 04/20/23 07:23 Resp 13 04/20/23 07:23 BP 106/66 04/20/23 07:23 Pulse Ox 97 04/20/23 07:23 O2 Del Method Room Air 04/20/23 07:23 O2 Flow Rate 2 04/19/23 09:03 Discharge Plan Discharge Patient Disposition: Home Condition: Stable Prescriptions: New furosemide 40 mg Tablet 40 mg PO DAILY@0800 Qty: 30 0RF prednisone 20 mg Tablet 40 mg PO DAILY Qty: 8 0RF potassium chloride 10 mEq tablet extended release 10 meq PO DAILY Qty: 30 0RF Continued atorvastatin 40 mg Tablet 80 mg PO DAILY Qty: 60 0RF clopidogrel 75 mg Tablet 75 mg PO DAILY Qty: 30 11RF aspirin 81 mg Tablet,Delayed Release (Dr/Ec) 81 mg PO DAILY Qty: 30 0RF lisinopril 10 mg Tablet 10 mg PO DAILY Qty: 30 0RF metoprolol succinate 25 mg tablet extended release 24 hr 25 mg PO DAILY Qty: 30 0RF albuterol sulfate 90 mcg/actuation HFA aerosol inhaler 1 inh INHALATION Q6H PRN (Reason: Shortness Of Breath) Qty: 1 0RF Trelegy Ellipta 200-62.5-25 mcg blister with device 1 inh inhalation DAILY Qty: 60 0RF fluticasone propionate 50 mcg/actuation Warren,Suspension 2 spray nasal BID Qty: 1 0RF Discharge Orders: Discharge Order (Routine); Ordered 04/20/23 Ordered By: Jeovany Dean Referrals: Crisis [facility] [Other] (7 days/week 8am-6pm) [facility] [Outside] (?Follow up as a walk in at [facility], walk in hours are Monday-Monday from 7:30AM-3:00PM, first come, first seen. Once you do this assessment you will be referred for appropriate services.) Farideh Cash FNP [Nurse Practitioner] - 04/26/23 10:30 am Ricky Lagunas FNP [Primary Care Provider] - 04/25/23 8:30 am (BMP on follow up Follow up appt is with Ranjeet Mathew.) Discharge Diet: Cardiac Discharge Activity: Increase activity as tolerated Patient Instructions: Furosemide (By mouth) (Lasix), Prednisone (By mouth) (predniSONE Intensol, Prednicot, Deltasone, Dorothea), Potassium Chloride (By mouth) (K-Dur, K-Susanne, K-Tab, Erasmo Mur), Heart Failure (DC), Pulmonary Edema (DC), CHF Stoplight, COPD Stoplight, Opioid Safety Activity Restrictions/Additional Instructions: No alcohol, no drugs. Medication as prescribed including Lasix and potassium. BMP next week with provider. Return for any concerns. Stop smoking. Discharge Attestations Time Spent in Discharge Care*: greater than 30 min Quality Metrics Clinical Quality Measures [ No reported AMI, CVA or VTE this stay] Coding Level of Care Code 39297 Total time (in minutes) for Discharge: 34 Diagnoses Acute pulmonary edema J81.0 Chronic combined systolic and diastolic congestive heart failure, NYHA class 3 I50.42 Congestive heart failure chronicity: chronic Congestive heart failure type: combined COPD (chronic obstructive pulmonary disease) J44.9 Coronary artery disease I25.10
[2023-04-20] MEDS: lisinopril 10 mg Tablet PO (08:25)
[2023-04-20] MEDS: fluticasone nasal spray 16gm Btl 2 SPRAY NASAL (08:26)
[2023-04-20] MEDS: FUROsemide 40 mg Tablet PO (08:26)
[2023-04-20] MEDS: metoprolol succinate ER (24 HR) 25 mg Tablet PO (08:26)
[2023-04-20] MEDS: clopidogrel 75 mg Tablet PO (08:26)
[2023-04-20] MEDS: predniSONE 20 mg Tablet 40 MG PO (08:26)
[2023-04-20] MEDS: atorvastatin 40 mg Tablet 80 MG PO (08:26)
[2023-04-20] MEDS: budesonide 0.5 mg/2 mL Neb INHALATION (08:36)
--- NOTE | 2023-04-20 12:46 | PC.NURSE ---
meds to bed delivered. ridjodie will be here in 45 mins per her sister.
--- NOTE | 2023-04-20 12:57 | PC.NURSE ---
discharge papers provided to pt educated pt on his new meds, continued meds and to follow-up with his pcp and house designer. educated pt on the importance of quitting alcohol, smoking and to adhere on all his prescribed meds and to get a refill in early with his appointment with his pcp before he runs out. pt verbalizes understanding.
--- NOTE | 2023-04-20 14:30 | PC.NURSE ---
meds to bed delivered
== END 2023-04-20 14:30 | disposition home or self-care (01) ==
LOC: ER 11:23 → CSU 12:35
PROVIDERS: Admitting Provider Internal Medicine; Emergency Provider Family Medicine; PCP Nurse Practitioner Family; Visit Provider Internal Medicine
DX: J81.0 Acute pulmonary edema (principal); I50.42 Chronic combined systolic (congestive) and diastolic (congestive) heart failure; J44.9 Chronic obstructive pulmonary disease, unspecified; I25.10 Atherosclerotic heart disease of native coronary artery without angina pectoris; I25.2 Old myocardial infarction; F17.200 Nicotine dependence, unspecified, uncomplicated
CPT/HCPCS: 36415; 36600; 71045; 80051; 80053; 80306; 80307; 81003; 82330; 82805; 83735; 83880; 84484; 85025; 93005; 94640; 94760; 96372; 96374; 96376; 99285; G0378; J1100; J1650; J1940; J7512; J7626

== ENCOUNTER → 2023-04-25 08:49 | Outpatient (BNVA) | payer MEDICARE, MEDICAID, SELFPAY | PROVIDERS: PCP Nurse Practitioner Family; Visit Provider Nurse Practitioner Family | DX: I50.9 Heart failure, unspecified (principal); Z09 Encounter for follow-up examination after completed treatment for conditions other than malignant neoplasm; I50.42 Chronic combined systolic (congestive) and diastolic (congestive) heart failure; M12.9 Arthropathy, unspecified; J34.2 Deviated nasal septum; I25.10 Atherosclerotic heart disease of native coronary artery without angina pectoris | CPT/HCPCS: 80053; 83880 ==

== ENCOUNTER 2023-06-14 05:04 | Observation (INO) | payer MEDICARE, MEDICAID, SELFPAY ==
[2023-06-14] VITALS (7 sets, daily range): BP systolic 102–170; BP diastolic 62–100; PULSE 88–107; RESP 16–18; TEMP 36–37.2; O2SAT 90–98; BMI 25.8; BMI 21.7
--- NOTE | 2023-06-14 05:18 | XRR_ITS ---
PROCEDURE INFORMATION: Exam: XR Chest Exam date and time: 06/14/2023 5:34 AM Age: 63 years old Clinical indication: Dyspnea; Prior surgery; Surgery date: 6+ months; Surgery type: Cardiac stent TECHNIQUE: Imaging protocol: Radiologic exam of the chest. Views: 1 view. COMPARISON: CR XR chest 1V portable [id number] 04/19/2023 7:33 AM FINDINGS: Lungs: Unchanged diffuse miliary pattern nodularity/granuloma. Unchanged 14 mm nodular density appreciated over the left costophrenic angle. Pleural spaces: Blunting of the right costophrenic angle. Heart/Mediastinum: Unremarkable. No cardiomegaly. Bones/joints: Unremarkable. Other findings: Postsurgical appearance of the right upper extremity with residual rounded densities over the right humerus. XR/XR chest 1V portable [id number] IMPRESSION: 1. No acute cardiopulmonary findings. 2. Chronic unchanged findings as above.
--- NOTE | 2023-06-14 05:20 | ECG_ITS ---
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 Measurements Intervals [place] Rate: 104 P: 73 IN: 116 QRS: 66 QRSD: 109 T: 18 QT: 358 QTc: 472 Interpretive Statements SINUS TACHYCARDIA WITH SHORT IN INTERVAL WITH FREQUENT VENTRICULAR PREMATURE COMPLEXES NONSPECIFIC ST & T-WAVE ABNORMALITY ABNORMAL RHYTHM ECG Compared to ECG 04/19/2023 16:02:17 Possible ischemia no longer present T-wave abnormality still present Electronically Signed On 06-14-2023 7:18:04 PANTS PRESSER by Andrea Gu M.D. [email or web address]
--- NOTE | 2023-06-14 05:31 | ED_ITS ---
Documented by User: Freddy Sabillon DO 06/14/23 05:33 HPI - SOB/Dyspnea 2 General: Chief Complaint: Shortness of Breath/Dyspnea Stated Complaint: respiratory distress Time Seen by Provider: 06/14/23 05:30 History of Present Illness: HPI Narrative: Patient presents to the ER with complaints of shortness of breath. Patient does have a history of COPD and CHF. However patient does not wear oxygen at home patient should be on Lasix 40 mg a day but he has not taken it for the last 3 days up until 1 dose this morning. Patient is currently on albuterol inhaler, and Trelegy. Patient still admits to smoking 1 pack/day. Patient denies any fever chills nausea vomiting. Patient does have a history of CHF NYHA class III, cardiomyopathy, upon arrival on 3 L of oxygen per nasal cannula patient was satting approximate 95%. Review of Systems 2 General: Reports: 10 or more systems reviewed and unremarkable except in HPI and below PFSH ED 2 PFSH: Medical History Arthritis, multiple joint involvement Arthritis Cardiomyopathy CHF (congestive heart failure), NYHA class III NSTEMI (non-ST elevated myocardial infarction) DTs (delirium tremens) Scabies Surgical History History of surgery on arm Social History Smoking and tobacco/nicotine status: current every day tobacco/nicotine user Alcohol intake: current Alcohol intake frequency: 3 or more drinks per day Alcohol type: hard liquor Substance/Drug Use: current Physical Exam 2 Const: COMMON NORMALS: no acute distress, average body habitus, patient oriented x3, no limitations, healthy appearing, alert and well nourished HENMT: COMMON NORMALS: normocephalic, atraumatic, hearing grossly normal bilaterally, external ears normal, Normal external nose present, moist oral mucous membranes and oropharynx normal HEAD & SCALP: normocephalic and atraumatic NOSE: Normal external nose present EXTERNAL EAR: Yes external ears normal Neck/C-Spine: COMMON NORMALS: no JVD Chest: COMMONS NORMALS: normal inspection of the chest and normal palpation of entire chest wall Resp: COMMON NORMALS: normal respiratory effort, No retractions and No use of accessory muscles; negative for clear to auscultation bilaterally (Clear with occasional wheeze) AUSCULTATION: not clear to auscultation bilaterally (Clear with occasional wheeze) Cardio: COMMON NORMALS: no JVD, regular rate, regular rhythm, S1 normal heart sound present, S2 normal heart sound present, No gallops present (Cardio), No clicks present (Cardio), No murmurs present (Cardio) and No rub (Cardio) R ATE: regular rate RHYTHM: regular rhythm HEART SOUNDS: S1 normal heart sound present and S2 normal heart sound present GI: COMMON NORMALS: Normal to inspection, nondistended, normoactive bowel sounds present, Soft to palpation, non-tender, No hepatosplenomegaly present and no masses PALPATION: Yes Soft to palpation and Yes No hepatosplenomegaly present Extremity: NARRATIVE EXTREMITY EXAM: Negative for bilateral lower extremity edema Neuro: COMMON NORMALS: patient oriented x3 SENSORIUM/ORIENTATION: Yes alert Course 2 Vital Signs: Vital signs: Vital Signs Temperature 96.8 F L 06/14/23 05:05 Pulse Rate 107 H 06/14/23 06:28 Respiratory Rate 16 06/14/23 06:28 Blood Pressure 124/64 06/14/23 06:28 Pulse Oximetry 90 06/14/23 06:28 Oxygen Delivery Me thod Nasal Cannula 06/14/23 06:28 Oxygen Flow Rate 3 06/14/23 06:28 MDM - SOB/Dyspnea Differential Diagnosis Likely acute exacerbation of chronic obstructive airways disease and congestive heart failure; Unlikely community acquired pneumonia, asthma with exacerbation or pulmonary embolism Lab Data I reviewed the patient's lab results. 06/14/23 05:27 06/14/23 05:27 Labs/Radiology: Radiology Impressions Chest X-Ray 06/14/23 05:18 IMPRESSION: 1. No acute cardiopulmonary findings. 2. Chronic unchanged findings as above. Laboratory Results WBC 11.52 10^3/uL (3.29-11.43) H 06/14/23 05:27 RBC 4.69 10^6/uL (3.85-5.65) 06/14/23 05:27 Hgb 13.60 g/dL (11.27-16.99) 06/14/23 05:27 Hct 42.4 % (37-53) 06/14/23 05:27 MCV 90.4 fl (82-101) 06/14/23 05:27 MCH 29.0 pg (27-33) 06/14/23 05:27 MCHC 32.1 g/dL (30-55) 06/14/23 05:27 RDW 17.1 % (12.1-15.1) H 06/14/23 05:27 Plt Count 188 10^3/cmm (157-399) 06/14/23 05:27 MPV 11.8 fL (7.4-10.4) H 06/14/23 05:27 Neut % (Auto) 72.8 % 06/14/23 05:27 Lymph % (Auto) 15.6 % 06/14/23 05:27 [place] % (Auto) 10.2 % 06/14/23 05:27 Eos % (Auto) 0.6 % 06/14/23 05:27 Baso % (Auto) 0.5 % 06/14/23 05:27 Neut # (Auto) 8.37 10^3/uL (1.8-7.7) H 06/14/23 05:27 Lymph # (Auto) 1.8 10^3/uL (0.8-4.8) 06/14/23 05:27 [place] # (Auto) 1.2 10^3/uL (0.2-0.9) H 06/14/23 05:27 Eos # (Auto) 0.1 10^3/uL (0.0-0.8) 06/14/23 05:27 Baso # (Auto) 0.1 10^3/uL (0.0-0.1) 06/14/23 05:27 Nucleated RBC % (auto) 0 % 06/14/23 05:27 Nucleated RBCs # 0.0 /100WBC 06/14/23 05:27 Sodium 139 mmol/L (136-145) 06/14/23 05:27 Potassium 4.0 mmol/L (3.5-5.1) 06/14/23 05:27 Chloride 103 mmol/L (98-107) 06/14/23 05:27 Carbon Dioxide 24 mmol/L (22-29) 06/14/23 05:27 Anion Gap 16.0 (5-19) 06/14/23 05:27 BUN 16 mg/dL (8-23) 06/14/23 05:27 Creatinine 0.7 mg/dL (0.7-1.2) 06/14/23 05:27 GFR Calculation 113.5 mL/min (90-130) 06/14/23 05:27 Glucose 159 mg/dL (65-115) H 06/14/23 05:27 Calculated Osmolality 293 mOsm/kg (285-295) 06/14/23 05:27 Calcium 8.8 mg/dL (8.5-10.5) 06/14/23 05:27 Total Bilirubin 0.6 mg/dL (0.15-1.2) 06/14/23 05:27 AST 32 U/L (0-40) 06/14/23 05:27 ALT 17 U/L (0-41) 06/14/23 05:27 Alkaline Phosphatase 111 U/L (40-130) 06/14/23 05:27 Troponin T Baseline 40 ng/L (0-15) H 06/14/23 05:27 Troponin T 120 Minute 53.48 ng/L (0-15) H 06/14/23 07:05 Delta Troponin T 13.48 ABS# (0-10) H* 06/14/23 07:05 Troponin T Hi Sens 6Hr 69.23 ng/L (0-15) H 06/14/23 11:10 Troponin T Hi Sens 6Hr Delta 29.23 ng/L (0-12) H* 06/14/23 11:10 NT-Pro-B Natriuret Pep 2642 pg/mL (0-125) H 06/14/23 05:27 Total Protein 7.4 g/dL (6.6-8.7) 06/14/23 05:27 Albumin 3.7 g/dL (3.5-5.2) 06/14/23 05:27 Globulin 3.7 g/dL (1.3-4.6) 06/14/23 05:27 Influenza Type A Ag negative (Negative) 06/14/23 07:34 Influenza Type B Ag negative (Negative) 06/14/23 07:34 SARS-CoV-2 Ag (Rapid) negative (Negative) 06/14/23 07:34 All radiology interpretation(s) finalized by discharge Discharge Plan Discharge Patient Disposition: Placed in Observation Clinical Impression: Myocardial injury, History of substance abuse Condition: Stable Prescriptions: No Action clopidogrel 75 mg Tablet 75 mg PO DAILY Qty: 30 11RF aspirin 81 mg Tablet,Delayed Release (Dr/Ec) 81 mg PO DAILY Qty: 30 0RF lisinopril 10 mg Tablet 10 mg PO DAILY Qty: 30 0RF metoprolol succinate 25 mg tablet extended release 24 hr 25 mg PO DAILY Qty: 30 0RF albuterol sulfate 90 mcg/actuation HFA aerosol inhaler 1 inh INHALATION Q6H PRN (Reason: Shortness Of Breath) Qty: 1 0RF Trelegy Ellipta 200-62.5-25 mcg blister with device 1 inh inhalation DAILY Qty: 60 0RF fluticasone propionate 50 mcg/actuation [place],Suspension 2 spray nasal BID Qty: 1 0RF furosemide 40 mg Tablet 40 mg PO DAILY@0800 Qty: 30 0RF potassium chloride 10 mEq tablet extended release 10 meq PO DAILY Qty: 30 0RF celecoxib 200 mg capsule 200 mg PO DAILY quetiapine 100 mg tablet 100 mg PO DAILY simvastatin 40 mg tablet 40 mg PO QPM Referrals: Ricky Lagnuas FNP [Primary Care Provider] - Coding Level of Care Code ED Deputy Assessor for Chg Fwd Documented by User: Carlos Lewis DO 06/14/23 12:24 HPI - SOB/Dyspnea 2 General: Chief Complaint: Shortness of Breath/Dyspnea Stated Complaint: respiratory distress Time Seen by Provider: 06/14/23 05:30 PFSH ED 2 PFSH: Medical History Arthritis, multiple joint involvement Arthritis Cardiomyopathy CHF (congestive heart failure), NYHA class III NSTEMI (non-ST elevated myocardial infarction) DTs (delirium tremens) Scabies Surgical History History of surgery on arm Social History Smoking and tobacco/nicotine status: current every day tobacco/nicotine user Alcohol intake: current Alcohol intake frequency: 3 or more drinks per day Alcohol type: hard liquor Substance/Drug Use: current Course 2 Reevaluation(s): Reevaluation #1: Assumed care from overnight emergency physician. This patient apparently has history of COPD as well as CHF who presented with his significant other because of cough congestion and feeling short of Monday. He is not normally oxygen requiring. He states he has not had regular physician care for the last 2 years since he got out of skilled nursing. He states he has been taking his Lasix regularly but did take a single dose last night. He denies any other known exposure to infectious disease, chest pain currently etc. He is alert converses in complete sentences. His heart is regular without murmur. His pulmonary examination reveals clear lung velazquez without any accessory muscle use. His extremities reveal no evidence of peripheral edema calf tenderness etc. He is alert moves all extremities normally and otherwise is goal-directed in speech. Initial troponin is elevated. He was admitted in April of last year to this facility for exacerbation of congestive heart failure. He also apparently drinks alcohol and has a history of cardiomyopathy whether it is ischemic, alcoholic or combination thereof. Will follow his serial troponin in the emergency department to ensure that is not increasing and continue with diuresis. Time: 06:49 Reevaluation #2: Patient 2-hour and 6-hour troponins continue to be rising albeit not at a astronomical rate but certainly rising and is [address]-T wave segment changes inferior laterally to include inverted T waves which are new change from prior tracings this visit. I discussed the need for continued observation and monitoring and additional workup in the hospital with the patient. He voices understanding. Time: 11:52 Consultations: Consultation #1: Discussed with attending hospitalist who agrees to proceed with observation for further evaluation. Time: 12:22 Vital Signs: Vital signs: Vital Signs Temperature 96.8 F L 06/14/23 05:05 Pulse Rate 107 H 06/14/23 06:28 Respiratory Rate 16 06/14/23 06:28 Blood Pressure 124/64 06/14/23 06:28 Pulse Oximetry 90 06/14/23 06:28 Oxygen Delivery Me thod Nasal Cannula 06/14/23 06:28 Oxygen Flow Rate 3 06/14/23 06:28 MDM - SOB/Dyspnea Medical Decision Making This patient presented to the emergency department with symptoms of vague chest pain and shortness of breath. The overnight emergency physician initiated workup for ACS or other potential etiologies of his symptoms. The patient has previously been hospitalized at this facility in April because of pulmonary congestion. Review of those records reveal that he did have similar EKG changes during that hospitalization as well. Likely poor adherence to medication regimen as well as lifestyle may be contributing to his current presentation however because of progressive troponin elevation with dynamic EKG changes we will place him in observation status for continued workup. Lab Data 06/14/23 05:27 06/14/23 05:27 Labs/Radiology: Radiology Impressions Chest X-Ray 06/14/23 05:18 IMPRESSION: 1. No acute cardiopulmonary findings. 2. Chronic unchanged findings as above. Laboratory Results WBC 11.52 10^3/uL (3.29-11.43) H 06/14/23 05:27 RBC 4.69 10^6/uL (3.85-5.65) 06/14/23 05:27 Hgb 13.60 g/dL (11.27-16.99) 06/14/23 05:27 Hct 42.4 % (37-53) 06/14/23 05:27 MCV 90.4 fl (82-101) 06/14/23 05:27 MCH 29.0 pg (27-33) 06/14/23 05:27 MCHC 32.1 g/dL (30-55) 06/14/23 05:27 RDW 17.1 % (12.1-15.1) H 06/14/23 05:27 Plt Count 188 10^3/cmm (157-399) 06/14/23 05:27 MPV 11.8 fL (7.4-10.4) H 06/14/23 05:27 Neut % (Auto) 72.8 % 06/14/23 05:27 Lymph % (Auto) 15.6 % 06/14/23 05:27 [place] % (Auto) 10.2 % 06/14/23 05:27 Eos % (Auto) 0.6 % 06/14/23 05:27 Baso % (Auto) 0.5 % 06/14/23 05:27 Neut # (Auto) 8.37 10^3/uL (1.8-7.7) H 06/14/23 05:27 Lymph # (Auto) 1.8 10^3/uL (0.8-4.8) 06/14/23 05:27 [place] # (Auto) 1.2 10^3/uL (0.2-0.9) H 06/14/23 05:27 Eos # (Auto) 0.1 10^3/uL (0.0-0.8) 06/14/23 05:27 Baso # (Auto) 0.1 10^3/uL (0.0-0.1) 06/14/23 05:27 Nucleated RBC % (auto) 0 % 06/14/23 05:27 Nucleated RBCs # 0.0 /100WBC 06/14/23 05:27 Sodium 139 mmol/L (136-145) 06/14/23 05:27 Potassium 4.0 mmol/L (3.5-5.1) 06/14/23 05:27 Chloride 103 mmol/L (98-107) 06/14/23 05:27 Carbon Dioxide 24 mmol/L (22-29) 06/14/23 05:27 Anion Gap 16.0 (5-19) 06/14/23 05:27 BUN 16 mg/dL (8-23) 06/14/23 05:27 Creatinine 0.7 mg/dL (0.7-1.2) 06/14/23 05:27 GFR Calculation 113.5 mL/min (90-130) 06/14/23 05:27 Glucose 159 mg/dL (65-115) H 06/14/23 05:27 Calculated Osmolality 293 mOsm/kg (285-295) 06/14/23 05:27 Calcium 8.8 mg/dL (8.5-10.5) 06/14/23 05:27 Total Bilirubin 0.6 mg/dL (0.15-1.2) 06/14/23 05:27 AST 32 U/L (0-40) 06/14/23 05:27 ALT 17 U/L (0-41) 06/14/23 05:27 Alkaline Phosphatase 111 U/L (40-130) 06/14/23 05:27 Troponin T Baseline 40 ng/L (0-15) H 06/14/23 05:27 Troponin T 120 Minute 53.48 ng/L (0-15) H 06/14/23 07:05 Delta Troponin T 13.48 ABS# (0-10) H* 06/14/23 07:05 Troponin T Hi Sens 6Hr 69.23 ng/L (0-15) H 06/14/23 11:10 Troponin T Hi Sens 6Hr Delta 29.23 ng/L (0-12) H* 06/14/23 11:10 NT-Pro-B Natriuret Pep 2642 pg/mL (0-125) H 06/14/23 05:27 Total Protein 7.4 g/dL (6.6-8.7) 06/14/23 05:27 Albumin 3.7 g/dL (3.5-5.2) 06/14/23 05:27 Globulin 3.7 g/dL (1.3-4.6) 06/14/23 05:27 Influenza Type A Ag negative (Negative) 06/14/23 07:34 Influenza Type B Ag negative (Negative) 06/14/23 07:34 SARS-CoV-2 Ag (Rapid) negative (Negative) 06/14/23 07:34 EKG Data EKG 2: I personally reviewed and interpreted this EKG as follows: Interpretation: Second EKG this visit reveals a ventricular rate of 99 bpm with a TX interval 136 ms QRS duration is normal corrected QT intervals normal. [place] is normal. Has very electrocardiographic evidence suggestive of left atrial enlargement. Does have ST-T wave flattening in the inferior lateral leads which is unchanged from an earlier EKG this visit. EKG 3: I personally reviewed and interpreted this EKG as follows: Interpretation: 30 EKG this visit reveals ventricular rate of 97 bpm with a TX interval of 131 ms QRS duration 107 ms normal corrected QT interval. Normal axis. He does have continued ST segment depression to 3 follows the 5 in V6 is with T wave inversions in V3 through V6. These are changes which were not present in EKG earlier this visit. Discharge Plan Discharge Patient Disposition: Placed in Observation Clinical Impression: Myocardial injury, History of substance abuse Condition: Stable Prescriptions: No Action clopidogrel 75 mg Tablet 75 mg PO DAILY Qty: 30 11RF aspirin 81 mg Tablet,Delayed Release (Dr/Ec) 81 mg PO DAILY Qty: 30 0RF lisinopril 10 mg Tablet 10 mg PO DAILY Qty: 30 0RF metoprolol succinate 25 mg tablet extended release 24 hr 25 mg PO DAILY Qty: 30 0RF albuterol sulfate 90 mcg/actuation HFA aerosol inhaler 1 inh INHALATION Q6H PRN (Reason: Shortness Of Breath) Qty: 1 0RF Trelegy Ellipta 200-62.5-25 mcg blister with device 1 inh inhalation DAILY Qty: 60 0RF fluticasone propionate 50 mcg/actuation [place],Suspension 2 spray nasal BID Qty: 1 0RF furosemide 40 mg Tablet 40 mg PO DAILY@0800 Qty: 30 0RF potassium chloride 10 mEq tablet extended release 10 meq PO DAILY Qty: 30 0RF celecoxib 200 mg capsule 200 mg PO DAILY quetiapine 100 mg tablet 100 mg PO DAILY simvastatin 40 mg tablet 40 mg PO QPM Referrals: Ricky Lagunas FNP [Primary Care Provider] - Coding Level of Care Code ED Deputy Assessor for Jethro Joyner
[2023-06-14 05:40] LABS: Basophils # 0.1 10^3/uL (0.0-0.1); Basophils % 0.5 %; Eosinophils # 0.1 10^3/uL (0.0-0.8); Eosinophils % 0.6 %; Hematocrit 42.4 % (37-53); Lymphocytes # 1.8 10^3/uL (0.8-4.8); Lymphocytes % 15.6 %; Mean Corpuscular HGB Conc 32.1 g/dL (30-55); Mean Corpuscular Volume 90.4 fl (82-101); Mean Platelet Volume 11.8 fL (7.4-10.4); Monocytes # 1.2 10^3/uL (0.2-0.9); Monocytes % 10.2 %; Neutrophils # 8.37 10^3/uL (1.8-7.7); Neutrophils % 72.8 %; Nucleated Red Blood Cells % 0 %; Platelet Count 188 10^3/cmm (157-399); Red Blood Count 4.69 10^6/uL (3.85-5.65); Red Cell Distribution Width 17.1 % (12.1-15.1); White Blood Count 11.52 10^3/uL (3.29-11.43)
[2023-06-14 06:05] LABS: Troponin(5th) Baseline 40 ng/L (0-15)
[2023-06-14 06:13] LABS: Alanine Aminotransferase 17 U/L (0-41); Albumin Level 3.7 g/dL (3.5-5.2); Alkaline Phosphatase 111 U/L (40-130); Aspartate Amino Transferase 32 U/L (0-40); Blood Urea Nitrogen 16 mg/dL (8-23); Calcium 8.8 mg/dL (8.5-10.5); Carbon Dioxide 24 mmol/L (22-29); Chloride 103 mmol/L (98-107); Globulin 3.7 g/dL (1.3-4.6); Glomerular Filtration Rate 113.5 mL/min (90-130); Glucose 159 mg/dL (65-115); NT Pro B Type Natriuretic Pept 2642 pg/mL (0-125); Osmolality Calculated 293 mOsm/kg (285-295); Sodium 139 mmol/L (136-145); Total Bilirubin 0.6 mg/dL (0.15-1.2); Total Protein 7.4 g/dL (6.6-8.7)
--- NOTE | 2023-06-14 07:20 | ECG_ITS ---
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 Measurements Intervals [place] Rate: 99 P: 81 [place]: 136 QRS: 78 QRSD: 111 T: 4 QT: 366 QTc: 471 Interpretive Statements SINUS RHYTHM POSSIBLE LEFT ATRIAL ENLARGEMENT [-0.1mV P-WAVE IN V1/V2] MODERATE INTRAVENTRICULAR CONDUCTION DELAY [110+ ms QRS DURATION] NONSPECIFIC ST & T-WAVE ABNORMALITY Compared to ECG 06/14/2023 05:20:48 Intraventricular conduction delay now present Sinus tachycardia no longer present Short [place] interval no longer present T-wave abnormality still present Electronically Signed On 06-14-2023 7:18:53 CATALYST OPERATOR by Andrea Gu M.D. [id number]
[2023-06-14] MEDS: FUROsemide 10 mg/mL SDV 2mL 20 MG IVP (07:27)
[2023-06-14 07:38] LABS: Troponin 5 2HR 53.48 ng/L (0-15)
[2023-06-14 07:40] LABS: Troponin 5 2HR Delta 13.48 ABS# (0-10)
[2023-06-14 08:05] LABS: Influenza A by IFA negative (Negative); Influenza B by IFA negative (Negative); SARS Covid-2 Antigen negative (Negative)
--- NOTE | 2023-06-14 11:20 | ECG_ITS ---
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 Measurements Intervals [place] Rate: 97 P: 76 [place]: 131 QRS: 51 QRSD: 107 T: 265 QT: 376 QTc: 480 Interpretive Statements SINUS RHYTHM POSSIBLE LEFT ATRIAL ENLARGEMENT [-0.1mV P-WAVE IN V1/V2] ST DEVIATION AND MODERATE T-WAVE ABNORMALITY, CONSIDER ANTEROLATERAL ISCHEMIA [-0.1+ mV T-WAVE IN V3-V6] ST DEVIATION AND MODERATE T-WAVE ABNORMALITY, CONSIDER INFERIOR ISCHEMIA [-0.1+ mV T-WAVE IN II/aVF] Compared to ECG 06/14/2023 07:15:44 Possible ischemia now present Intraventricular conduction delay no longer present T-wave abnormality still present Electronically Signed On 06-14-2023 16:31:26 MORTGAGE LENDER by Ricci Santizo M.D. [id number]
[2023-06-14 11:36] LABS: Troponin 5 6HR 69.23 ng/L (0-15)
[2023-06-14 11:46] LABS: Troponin 5 6HR Delta 29.23 ng/L (0-12)
--- NOTE | 2023-06-14 12:26 | CT_ITS ---
WS: [id number] CT CHEST TECHNIQUE: Noncontrast CT of the chest with coronal and sagittal reformatted images. CLINICAL INFORMATION: CHF/COPD COMPARISON: CTA chest 2018 DLP: 314.[address] scans at [facility] use at least one of these dose optimization techniques: automated e xposure control; mA and/or kV adjustment per patient size (includes targeted exams where dose is matc hed to clinical indication); or iterative reconstruction. FINDINGS: Unchanged chronic granulomatous disease with innumerable tiny calcified granulomas. Slight fibrosis R IGHT upper lobe anteriorly. Calcified AP window and subcarinal lymph nodes. Aortic calcification. Cor onary calcification. No axillary lymphadenopathy. Adrenal glands are normal. Calcified splenic granul omas. Mild thoracic curve. Mild thoracic kyphosis. IMPRESSION: 1. Tiny RIGHT and trace LEFT pleural fluid. 2. Moderate chronic emphysematous changes. 3. No acute pulmonary infiltrates. No focal consolidation. 4. Chronic granulomatous disease.
--- NOTE | 2023-06-14 12:27 | P.HP_ITS ---
Providers/Chief Complaint 2 Primary Care Provider: Ricky Lagunas Chief Complaint: respiratory distress History of Present Illness April Mancia is a 63 year old male with past medical history of CAD post PCI in 2022, COPD, chronic smoker, noncompliant, meth abuse, congestive heart failure with cardiomyopathy with last known EF of 25 to 30% who presents to the ER today because of difficulty in breathing which has been getting worse over last 1 week. Overnight he was not able to catch his breath so he presented to the ER. He states he has not taken his medication for last few months. He was not aware that he needs to be on any medication for his heart so he has not taken any other dual antiplatelets for over a month now. After having difficulty in breathing he started taking his medications again. He has not taken any inhaler treatment because he ran out of the inhaler and started using his girlfriends inhaler recently. In the ER he has received 20 mg of IV Lasix for concerns of congestive heart failure. On examination he is feeling short of breath on room air saturating 90% becoming tachypneic on minimal ambulation and conversation with tachycardia. Laying comfortably in bed otherwise with head of the bed elevated to around 10 degrees. Review of Systems 2 General: Reports: 10 or more systems reviewed and unremarkable except in HPI and below Const: Denies: fever(s), chills, body aches, change in appetite, change in weight, malaise, night sweats, diaphoresis, change in sleep pattern, daytime sleepiness or snoring Eyes: Denies: change in vision, blurry vision, photophobia, eye discomfort or eye discharge ENMT: Denies: throat pain, enlarged tonsils, hoarseness, mouth pain, oral sores, dry mouth, tinnitus, nasal congestion or post nasal drip Card: Denies: chest pain, palpitations, irregular heart rhythm, edema, swelling of feet/ankles, lightheadedness, syncope, pre-syncope, dyspnea on exertion, orthopnea, leg pain with exertion or acrocyanosis Resp: Denies: dyspnea, productive cough, non-productive cough, wheezing, stridor, pain on inspiration, change in phlegm color, hemoptysis or chest congestion GI: Denies: abdominal pain, nausea, vomiting, hematemesis, coffee ground emesis, dysphagia, heartburn, diarrhea, constipation, bloating, GI cramping, change in bowel habits, pain on defecation, hematochezia or melena : Denies: flank pain, difficulty urinating, dysuria, urinary frequency, urinary urgency, urinary hesitancy, urinary dribbling, difficulty starting urination, change in urine stream, nocturia or hematuria Musc: Denies: neck pain, back pain, extremity pain, joint pain, joint swelling, joint redness, joint stiffness or limited range of motion Neuro: Denies: headache(s), numbness in extremities, weakness in extremities, sensory changes, lack of coordination, difficulty walking, frequent falls, dizziness, vertigo, confusion, Slurred speech present, difficulty communicating thoughts or seizure-like activity Psych: Denies: anxiety, depression, mood swings, panic attacks, hopelessness or irritability Endo: Denies: polyuria, polydipsia, tired all the time, cold intolerance, excessive sweating, flushing or heat intolerance Epifanio/Lymph: Denies: easy bruising or easy bleeding All/Imm: Denies: tongue swelling, facial swelling or acute wheezing Medications/Allergies Home Medications Medication Instructions Recorded Confirmed Last Taken Type albuterol sulfate 90 mcg/actuation 1 inh inhalation Q6H PRN Shortness 04/12/23 06/14/23 Unknown Rx aerosol inhaler Of Breath #1 g aspirin 81 mg tablet,delayed 81 mg PO DAILY #30 tabs 04/12/23 06/14/23 04/18/23 Rx release clopidogrel 75 mg tablet 75 mg PO DAILY #30 tabs 04/12/23 06/14/23 04/18/23 Rx fluticasone fur. 200 mcg-umeclid 1 inh inhalation DAILY #60 ea 04/12/23 06/14/23 04/18/23 Rx 62.5 mcg-vilant 25 mcg inhalat.powder (Trelegy Ellipta) fluticasone propionate 50 2 spray nasal BID #1 g 04/12/23 06/14/23 04/18/23 Rx mcg/actuation nasal spray,suspension lisinopril 10 mg tablet 10 mg PO DAILY #30 tabs 04/12/23 06/14/23 04/18/23 Rx metoprolol succinate 25 mg 25 mg PO DAILY #30 tabs 04/12/23 06/14/23 04/18/23 Rx tablet,extended release 24 hr furosemide 40 mg tablet 40 mg PO DAILY@0800 #30 tabs 04/20/23 06/14/23 Unknown Rx potassium chloride 10 mEq 10 meq PO DAILY #30 tabs 04/20/23 06/14/23 Unknown Rx tablet,extended release celecoxib 200 mg capsule 200 mg PO DAILY 06/14/23 06/14/23 Unknown History quetiapine 100 mg tablet 100 mg PO DAILY 06/14/23 06/14/23 Unknown History simvastatin 40 mg tablet 40 mg PO QPM 06/14/23 06/14/23 Unknown History Allergies Allergy/AdvReac Type Severity Reaction Status Date / Time No Known Allergies Allergy Verified 06/14/23 10:03 PFSH Acute 2 PFSH: Medical History (Updated 06/14/23 @ 17:06 by Kirill Wakefield MD) Non-compliant behavior History of substance abuse ETOH abuse Methamphetamine abuse Sciatic nerve pain Back Pain Arthritis, multiple joint involvement Arthritis Cardiomyopathy CHF (congestive heart failure), NYHA class III NSTEMI (non-ST elevated myocardial infarction) DTs (delirium tremens) Scabies Surgical History History of surgery on arm Social History (Updated 06/14/23 @ 17:06 by Kirill Wakefield MD) Smoking and tobacco/nicotine status: current every day tobacco/nicotine user Alcohol intake: current Alcohol intake frequency: 3 or more drinks per day Alcohol type: hard liquor Substance/Drug Use: current Caregiver/support person: Yes Lives independently: Yes Household members: friend(s) Housing: House Vitals/I&O/Wt Last Vital Signs Temp 96.8 F L 06/14/23 05:05 Pulse 107 H 06/14/23 06:28 Resp 16 06/14/23 06:28 BP 124/64 06/14/23 06:28 Pulse Ox 90 06/14/23 06:28 O2 Del Method Nasal Cannula 06/14/23 06:28 O2 Flow Rate 3 06/14/23 06:28 Weight last 48 hrs Weight 79.379 kg Physical Exam 2 Narrative: General: No acute distress, AO x3, nasal cannula HEENT: PERRLA, pupils bilaterally equal and reactive Chest: Bilateral bronchial breath sounds all over lung velazquez with occasional diffuse rhonchi and fine crackles CVS: S1-S2 regular, no murmurs, tachycardia, no gallops, no rubs Abdomen: Soft, nontender, no organomegaly, bowel sounds present Neuro: No focal deficits, no facial deformity, AO x3, power 5/5 in all limbs Data 06/14/23 05:27 06/14/23 05:27 A&P Assessment and plan (1) Shortness of breath: Most likely in setting of COPD exacerbation. Chest x-ray concerning for granulomatous disease. Patient does have history of congestive heart failure with last known EF of 25 to 30% in April 2023. Patient also has noncompliant behavior with not taking his medications for over a month. Also has recent history of PCI without dual antiplatelet for over a month. Check CT chest without contrast. Pneumonia less likely. Check MRSA swab, urine Legionella, bacterial antigen, sputum culture, QuantiFERON, mycobacterial tuberculosis PCR x 3, FIORELLA levels, histoplasma, cocci duo, blastomycosis serologies. Start patient on DuoNebs every 6 hour, Pulmicort twice daily. Solu-Medrol 40 mg every 6 hourly for now. Will wean rapidly within next 48 hours. Patient already received 20 minutes of IV Lasix in the ER. For now we will hold off any further Lasix as patient looks clinically dehydrated. Strict input charting, daily weights. Fluid restriction up to 1500 cc. (2) COPD (chronic obstructive pulmonary disease): Qualifiers: COPD type: unspecified COPD Qualified Code(s): J44.9 - Chronic obstructive pulmonary disease, unspecified (3) Granulomatous interstitial lung disease: Workup as above. Gives history of incarceration. Does not know if he was ever tested for tuberculosis. MTB PCR with mycobacteria x 3. Check histoplasmosis, blastomycosis, coccidiomycosis serologies. Isolation precautions accordingly. (4) CHF (congestive heart failure), NYHA class III: Qualifiers: Congestive heart failure type: combined Congestive heart failure chronicity: chronic Qualified Code(s): I50.42 - Chronic combined systolic (congestive) and diastolic (congestive) heart failure (5) Cardiomyopathy: Qualifiers: Cardiomyopathy type: dilated Qualified Code(s): I42.0 - Dilated cardiomyopathy (6) Coronary artery disease: Noncompliant behavior. Have been off medications for last few months. Cycle troponins. Patient denies any active chest pain currently. Restart aspirin, Plavix, statin. Check lipid panel. Recent A1c 5.6. (7) Non-compliant behavior: (8) Methamphetamine abuse: States last meth abuse was 1 puff for last few days. Check urine drug screen, alcohol level. Check HIV, hepatitis panel. Plan Full code Cardiac diet Lovenox for DVT prophylaxis Famotidine for PUD prophylaxis. Attestations 2 Medical Necessity Statement*: Admission for more than 2 midnights for management of shortness of breath in setting of COPD exacerbation, granulomatous disease while tuberculosis ruled out, congestive heart failure with recent CAD post PCI in a patient with noncompliant behavior, meth abuse Diagnoses Shortness of breath R06.02 Chronic obstructive pulmonary disease, unspecified COPD type J44.9 COPD type: unspecified COPD Granulomatous interstitial lung disease J84.89; D71 Chronic combined systolic and diastolic congestive heart failure, NYHA class 3 I50.42 Congestive heart failure type: combined Congestive heart failure chronicity: chronic Dilated cardiomyopathy I42.0 Cardiomyopathy type: dilated Coronary artery disease I25.10 Non-compliant behavior R46.89 Methamphetamine abuse F15.10
[2023-06-14] MEDS: FUROsemide 10 mg/mL SDV 4mL 40 MG IVP (13:03)
[2023-06-14 13:21] LABS: Alcohol Level < 10 mg/dL (0-10)
[2023-06-14] MEDS: aspirin 81 mg EC Tablet PO (15:36)
[2023-06-14] MEDS: clopidogrel 75 mg Tablet PO (15:36)
[2023-06-14 15:44] LABS: Iron 30 ug/dL (59-158); Percent Saturation 6.6 % (20-50); Total Iron Binding Capacity 448 mcg/dl; Unsaturated Iron Binding 418 ug/dL (112-347)
[2023-06-14] MEDS: heparin 5,000 unit/mL INJ 1 mL 5000 UNIT SUBCUT (16:26)
[2023-06-14] MEDS: metoprolol succinate ER (24 HR) 25 mg Tablet PO (16:26)
[2023-06-14 17:32] LABS: Add Urine Microscopic? NO; Charge for UA Resulting for Rev
[2023-06-14 17:45] LABS: Bilirubin Urine Neg (Negative); Blood Urine Neg (Negative); Glucose Urine UA Norm (Normal); Ketones Urine Negative (Negative); Leukocyte Esterase Urine Negative (Negative); Nitrate Urine Negative (Negative); Protein Urine Neg (Negative); Specific Gravity, Urine 1.015 (1.005-1.030); Sulfosalicylic Acid Urine Negative (Negative); Urine Appearance Clear (CLEAR); Urine Color Yellow (Yellow); Urobilinogen Urine Norm (Negative); pH Urine 8 (5-7)
[2023-06-14] MEDS: atorvastatin 40 mg Tablet PO (19:25)
[2023-06-14] MEDS: famotidine 20 mg Tablet PO (19:28)
[2023-06-14 19:45] LABS: HIV 1 & 2 Antibody Non-Reactive (Non-Reactiv); HIV 1 & 2 Antigen Non-Reactive (Non-Reactiv)
[2023-06-14 20:08] LABS: Amphetamines Screen Urine Negative (Negative); Barbiturates Screen Urine Negative (Negative); Benzodiazepines Screen Urine Negative (Negative); Cocaine Screen Urine Negative (Negative); Opiate Screen Urine Negative (Negative); PCP Screen Urine Negative (Negative); THC Screen Urine Positive (Negative)
[2023-06-14] MEDS: budesonide 0.5 mg/2 mL Neb INHALATION (20:23)
[2023-06-14] MEDS: ipratropium-albuterol 3 mL Neb INHALATION (20:24)
[2023-06-14] MEDS: quetiapine 100 mg Tablet PO (20:41)
[2023-06-14 20:47] LABS: Hepatitis A Antibody IgM Non-Reactive (Nonreactive); Hepatitis B Core AB, Total Reactive (Nonreactive); Hepatitis B Surface Antigen Non-Reactive (Nonreactive); Hepatitis C Virus Antibody Non-Reactive (Nonreactive)
[2023-06-14 21:31] LABS: Hepatitis B Surface AB > 1000.0 (11.5-1000)
[2023-06-15] VITALS (11 sets, daily range): BP systolic 94–124; BP diastolic 58–89; PULSE 76–92; RESP 16–18; TEMP 36.4–36.8; O2SAT 93–98
[2023-06-15] MEDS: ipratropium-albuterol 3 mL Neb INHALATION ×4 (02:44→20:37)
[2023-06-15] MEDS: heparin 5,000 unit/mL INJ 1 mL 5000 UNIT SUBCUT ×2 (04:33→16:44)
[2023-06-15 05:05] LABS: Basophils % 0.1 %; Hematocrit 42.4 % (37-53); Lymphocytes # 1.5 10^3/uL (0.8-4.8); Lymphocytes % 8.9 %; Mean Corpuscular HGB Conc 32.1 g/dL (30-55); Mean Corpuscular Hemoglobin 28.1 pg (27-33); Mean Corpuscular Volume 87.6 fl (82-101); Monocytes # 1.6 10^3/uL (0.2-0.9); Monocytes % 9.5 %; Neutrophils # 13.53 10^3/uL (1.8-7.7); Nucleated Red Blood Cells % 0 %; Platelet Count 227 10^3/cmm (157-399); Red Blood Count 4.84 10^6/uL (3.85-5.65); Red Cell Distribution Width 16.8 % (12.1-15.1); White Blood Count 16.72 10^3/uL (3.29-11.43)
[2023-06-15 05:28] LABS: Alanine Aminotransferase 15 U/L (0-41); Albumin Level 3.6 g/dL (3.5-5.2); Alkaline Phosphatase 95 U/L (40-130); Anion Gap 14.7 (5-19); Aspartate Amino Transferase 25 U/L (0-40); Blood Urea Nitrogen 23 mg/dL (8-23); Calcium 8.9 mg/dL (8.5-10.5); Carbon Dioxide 26 mmol/L (22-29); Chloride 99 mmol/L (98-107); Chol HDL Ratio 4.27 mg/dL (1.0-5.00); Cholesterol 188 mg/dL (0-200); Globulin 3.8 g/dL (1.3-4.6); Glucose 146 mg/dL (65-115); HDL Cholesterol 44 mg/dL (60-100); LDL Cholesterol Calculated 132 mg/dL (50-129); Osmolality Calculated 288 mOsm/kg (285-295); Phosphorus 3.8 mg/dL (2.5-4.5); Potassium 3.7 mmol/L (3.5-5.1); Sodium 136 mmol/L (136-145); Total Bilirubin 1.2 mg/dL (0.15-1.2); Total Protein 7.4 g/dL (6.6-8.7); Triglycerides 59 mg/dL (0-150); VLDL Cholestrol Calculation 12 mg/dL (0-30)
[2023-06-15 05:43] LABS: Folate Level 6.7 ng/mL (4.5-32.2)
[2023-06-15] MEDS: budesonide 0.5 mg/2 mL Neb INHALATION ×2 (07:35→20:36)
[2023-06-15] MEDS: lisinopril 10 mg Tablet PO (09:45)
[2023-06-15] MEDS: clopidogrel 75 mg Tablet PO (09:45)
[2023-06-15] MEDS: metoprolol succinate ER (24 HR) 25 mg Tablet PO (09:45)
[2023-06-15] MEDS: aspirin 81 mg EC Tablet PO (09:45)
[2023-06-15] MEDS: famotidine 20 mg Tablet PO ×2 (09:45→16:44)
[2023-06-15] MEDS: dexamethasone 10 mg/mL INJ IVP (11:05)
[2023-06-15] MEDS: levoFLOXacin 750 mg Tablet PO (11:05)
[2023-06-15] MEDS: amoxicillin-clav 875-125 mg Tablet 1 TAB PO ×2 (11:05→16:44)
[2023-06-15] MEDS: sodium chloride 3.5% neb 4 mL Neb INHALATION ×2 (11:28→14:25)
--- NOTE | 2023-06-15 14:17 | P.PN_ITS ---
Subjective 2 Subjective: No acute vents overnight. Today morning examination patient laying comfortably in bed with head of the bed elevated at 5 degrees. He states he still feeling out of breath and difficulty to catch his breath. Denies any nausea, ting, headache. Has remained hemodynamically stable and afebrile otherwise. Vitals/I&O/Wt Last Vital Signs Temp 97.5 F L 06/15/23 12:00 Pulse 83 06/15/23 12:00 Resp 18 06/15/23 12:00 BP 102/66 06/15/23 12:00 Pulse Ox 95 06/15/23 12:00 O2 Del Method Room Air 06/15/23 11:28 O2 Flow Rate 3 06/14/23 06:28 06/14/23 06/15/23 06/15/23 22:59 06:59 14:59 Intake Total 480 / 480 240 / 720 480 / 480 Balance 480 / 480 240 / 720 480 / 480 Weight last 48 hrs Weight 65.771 kg Weight 66.678 kg Weight 79.379 kg Physical Exam 2 Narrative: General: No acute distress, AO x3, nasal cannula HEENT: PERRLA, pupils bilaterally equal and reactive Chest: Bilateral bronchial breath sounds all over lung velazquez with occasional diffuse rhonchi and fine crackles CVS: S1-S2 regular, no murmurs, tachycardia, no gallops, no rubs Abdomen: Soft, nontender, no organomegaly, bowel sounds present Neuro: No focal deficits, no facial deformity, AO x3, power 5/5 in all limbs Data 06/15/23 04:45 06/15/23 04:45 Micro: Microbiology 06/14/23 17:23 Bacterial Antigens - Final Urine Kidney 06/14/23 20:42 Gram Stain - Final Sputum - Expectorated Sputum 06/14/23 17:23 Legionella Urinary Antigen - Final Unknown Source A&P Assessment and plan (1) Shortness of breath: Most likely in setting of COPD exacerbation. Chest x-ray concerning for granulomatous disease. Patient does have history of congestive heart failure with last known EF of 25 to 30% in April 2023. Patient also has noncompliant behavior with not taking his medications for over a month. Also has recent history of PCI without dual antiplatelet for over a month. Appreciate CT chest without contrast. Urine Legionella, bacterial antigen negative. Sputum culture, MRSA swab pending. QuantiFERON pending, MTB PCR x 3 is pending. Only 1 sample has been collected so far. Other workup including FIORELLA levels, histoplasma, coccidiomycosis, blastomycosis serologies pending. Start patient on DuoNebs every 6 hour, Pulmicort twice daily. Dexamethasone 10 mg one-time followed by prednisone 40 mg oral daily. Pneumonia less likely but for now we will start patient on broad-spectrum antibiotics orally with Augmentin and Levaquin for next 7 days. Patient is euvolemic. No further Lasix. Strict input charting, daily weights. Fluid restriction up to 1500 cc. (2) COPD (chronic obstructive pulmonary disease): Qualifiers: COPD type: unspecified COPD Qualified Code(s): J44.9 - Chronic obstructive pulmonary disease, unspecified (3) Granulomatous interstitial lung disease: Workup as above. Gives history of incarceration. Does not know if he was ever tested for tuberculosis. MTB PCR with mycobacteria x 3. Check histoplasmosis, blastomycosis, coccidiomycosis serologies. Isolation precautions accordingly. (4) CHF (congestive heart failure), NYHA class III: Qualifiers: Congestive heart failure type: combined Congestive heart failure chronicity: chronic Qualified Code(s): I50.42 - Chronic combined systolic (congestive) and diastolic (congestive) heart failure (5) Cardiomyopathy: Qualifiers: Cardiomyopathy type: dilated Qualified Code(s): I42.0 - Dilated cardiomyopathy (6) Coronary artery disease: Noncompliant behavior. Have been off medications for last few months. Cycle troponins negative. Patient denies any active chest pain currently. Continue with aspirin, Plavix, statin. Discussed with patient regarding need for compliance to medications. Appreciate A1c and lipid panel. (7) Non-compliant behavior: (8) Methamphetamine abuse: States last meth abuse was 1 puff for last few days. Appreciate negative urine drug screen, alcohol level. Negative HIV, hepatitis panel. Plan Full code Cardiac diet Lovenox for DVT prophylaxis Famotidine for PUD prophylaxis. Discussed with micro lab and respiratory therapist to obtain 2 more samples for MTB PCR. Attestations 2 Medical Necessity Statement*: Requires further hospitalization for management of hypoxia and difficulty in breathing in setting of COPD exacerbation in a patient with granulomatous lung disease while tuberculosis is ruled out Diagnoses Shortness of breath R06.02 Chronic obstructive pulmonary disease, unspecified COPD type J44.9 COPD type: unspecified COPD Granulomatous interstitial lung disease J84.89; D71 Chronic combined systolic and diastolic congestive heart failure, NYHA class 3 I50.42 Congestive heart failure type: combined Congestive heart failure chronicity: chronic Dilated cardiomyopathy I42.0 Cardiomyopathy type: dilated Coronary artery disease I25.10 Non-compliant behavior R46.89 Methamphetamine abuse F15.10
[2023-06-15] MEDS: atorvastatin 40 mg Tablet PO (16:44)
[2023-06-15] MEDS: quetiapine 100 mg Tablet PO (20:06)
[2023-06-16] VITALS (10 sets, daily range): BP systolic 101–125; BP diastolic 55–66; PULSE 76–95; RESP 16–18; TEMP 36.4–36.9; O2SAT 95–100
[2023-06-16] MEDS: ipratropium-albuterol 3 mL Neb INHALATION ×2 (02:59→08:16)
[2023-06-16] MEDS: heparin 5,000 unit/mL INJ 1 mL 5000 UNIT SUBCUT (03:13)
[2023-06-16 05:33] LABS: Alanine Aminotransferase 12 U/L (0-41); Albumin Level 3.5 g/dL (3.5-5.2); Alkaline Phosphatase 83 U/L (40-130); Anion Gap 15.9 (5-19); Aspartate Amino Transferase 19 U/L (0-40); Blood Urea Nitrogen 30 mg/dL (8-23); Calcium 8.9 mg/dL (8.5-10.5); Carbon Dioxide 25 mmol/L (22-29); Chloride 100 mmol/L (98-107); Globulin 3.4 g/dL (1.3-4.6); Glomerular Filtration Rate 75.2 mL/min (90-130); Glucose 109 mg/dL (65-115); Osmolality Calculated 291 mOsm/kg (285-295); Potassium 3.9 mmol/L (3.5-5.1); Sodium 137 mmol/L (136-145); Total Bilirubin 1.1 mg/dL (0.15-1.2); Total Protein 6.9 g/dL (6.6-8.7)
[2023-06-16] MEDS: levoFLOXacin 750 mg Tablet PO (05:41)
[2023-06-16] MEDS: budesonide 0.5 mg/2 mL Neb INHALATION (08:16)
[2023-06-16] MEDS: famotidine 20 mg Tablet PO (09:27)
[2023-06-16] MEDS: amoxicillin-clav 875-125 mg Tablet 1 TAB PO (09:27)
[2023-06-16] MEDS: predniSONE 20 mg Tablet 40 MG PO (09:27)
[2023-06-16] MEDS: lisinopril 10 mg Tablet PO (09:27)
[2023-06-16] MEDS: clopidogrel 75 mg Tablet PO (09:27)
[2023-06-16] MEDS: metoprolol succinate ER (24 HR) 25 mg Tablet PO (09:27)
[2023-06-16] MEDS: aspirin 81 mg EC Tablet PO (09:28)
[2023-06-16] MEDS: sodium chloride 3.5% neb 4 mL Neb INHALATION (09:49)
--- NOTE | 2023-06-16 11:58 | PC.SOCIAL ---
IMM Update pg 2 of IMM Updated and reviewed w/ patient. Copy provided and copy dated, initialed and placed in chart.
--- NOTE | 2023-06-16 12:13 | P.DS_ITS ---
Discharge Providers Date of Admission: 06/14/23 16:55 Date of Discharge: June 16, 2023 Attending Provider at Admission: Kirill Wakefield MD Attending Provider at Discharge: Kirill Wakefield MD Primary Care Provider: Ricky Lagunas Diagnoses at Discharge Discharge Diagnosis (1) Shortness of breath: Status: Acute (2) COPD (chronic obstructive pulmonary disease): Status: Acute Qualifiers: COPD type: unspecified COPD Qualified Code(s): J44.9 - Chronic obstructive pulmonary disease, unspecified (3) Granulomatous interstitial lung disease: Status: Acute (4) CHF (congestive heart failure), NYHA class III: Status: Chronic Qualifiers: Congestive heart failure type: combined Congestive heart failure chronicity: chronic Qualified Code(s): I50.42 - Chronic combined systolic (congestive) and diastolic (congestive) heart failure (5) Cardiomyopathy: Status: Acute Qualifiers: Cardiomyopathy type: dilated Qualified Code(s): I42.0 - Dilated cardiomyopathy (6) Coronary artery disease: Status: Acute (7) Non-compliant behavior: Status: Acute (8) Methamphetamine abuse: Status: Acute Reason for Visit Reason for Visit: respiratory distress Hospital Course Hospital Course April Mancia is a 63 year old male with past medical history of CAD post PCI in 2022, COPD, chronic smoker, noncompliant, meth abuse, congestive heart failure with cardiomyopathy with last known EF of 25 to 30% who presents to the ER today because of difficulty in breathing which has been getting worse over last 1 week. Overnight he was not able to catch his breath so he presented to the ER. He states he has not taken his medication for last few months. He was not aware that he needs to be on any medication for his heart so he has not taken any other dual antiplatelets for over a month now. After having difficulty in breathing he started taking his medications again. He has not taken any inhaler treatment because he ran out of the inhaler and started using his girlfriends inhaler recently. Patient was admitted to the hospital for management of difficulty in breathing along with hypoxia in setting of COPD exacerbation. X-ray on admission was consistent for stated management of disease which was confirmed on CT chest. Further workup for chronic granulomatous disease including mycobacterial tuberculosis with 2 PCR's and 1 AFB smear, coccidiomycosis, blastomycosis, histoplasma has been sent out. Patient was started on treatment with nebulization treatment along with steroids. He has been discharged in hemodynamically stable condition with all the medications prescribed to him at bedside with advice in detail about compliance of medications and following up with his physicians, cessation of smoking and meth use. Physical Exam Narrative: General: No acute distress, AO x3, nasal cannula HEENT: PERRLA, pupils bilaterally equal and reactive Chest: Bilateral bronchial breath sounds all over lung velazquez with occasional diffuse rhonchi and fine crackles CVS: S1-S2 regular, no murmurs, tachycardia, no gallops, no rubs Abdomen: Soft, nontender, no organomegaly, bowel sounds present Neuro: No focal deficits, no facial deformity, AO x3, power 5/5 in all limbs Discharge Data Studies Completed and Pending Completed Studies During Hospitalization Category Date Time Status CT chest wo con [id number] Urgent Cat Scan 06/14/23 12:26 Completed XR chest 1V portable [id number] Stat Exams 06/14/23 05:18 Completed Pending at discharge Category Date Time Status Angiotensin Converting Enzyme Timed Lab 06/14/23 17:10 Received Blastomyces AB Panel CF and ID Routine Lab 06/14/23 17:10 Received Coccidioides AB CF Serum Routine Lab 06/14/23 17:10 Received Histoplasma Antibody Immunodif Routine Lab 06/14/23 17:10 Received Histoplasma Quantitative AG Routine Lab 06/14/23 17:23 Received MAG [Magnesium] AM LABS Lab 06/17/23 04:00 Ordered MRSA [Methicillin Resistant S.aureu] Routine Lab 06/14/23 17:10 Received MTB Complex & Rifampin Res PCR Routine Lab 06/15/23 12:00 Received MTB Complex & Rifampin Res PCR Routine Lab 06/16/23 10:00 Received Mycobacteria, Culture w/Fluor Q8H Lab 06/15/23 07:18 Uncollected Mycobacteria, Culture w/Fluor Q8H Lab 06/15/23 11:46 Ordered Mycobacteria, Culture w/Fluor Q8H Lab 06/16/23 10:00 Ordered Mycobacteria, Culture w/Fluor Routine Lab 06/15/23 14:30 Received Otppqwtetze-UD-Aobq Plus Routine Lab 06/14/23 17:10 Received Sputum Culture and Gram Stain Stat Lab 06/14/23 20:42 Results Radiology Impressions Chest X-Ray 06/14/23 05:18 IMPRESSION: 1. No acute cardiopulmonary findings. 2. Chronic unchanged findings as above. Laboratory Results WBC 16.72 10^3/uL (3.29-11.43) H 06/15/23 04:45 RBC 4.84 10^6/uL (3.85-5.65) 06/15/23 04:45 Hgb 13.60 g/dL (11.27-16.99) 06/15/23 04:45 Hct 42.4 % (37-53) 06/15/23 04:45 MCV 87.6 fl (82-101) 06/15/23 04:45 MCH 28.1 pg (27-33) 06/15/23 04:45 MCHC 32.1 g/dL (30-55) 06/15/23 04:45 RDW 16.8 % (12.1-15.1) H 06/15/23 04:45 Plt Count 227 10^3/cmm (157-399) 06/15/23 04:45 MPV 12.0 fL (7.4-10.4) H 06/15/23 04:45 Neut % (Auto) 81.0 % 06/15/23 04:45 Lymph % (Auto) 8.9 % 06/15/23 04:45 [place] % (Auto) 9.5 % 06/15/23 04:45 Eos % (Auto) 0.0 % 06/15/23 04:45 Baso % (Auto) 0.1 % 06/15/23 04:45 Neut # (Auto) 13.53 10^3/uL (1.8-7.7) H 06/15/23 04:45 Lymph # (Auto) 1.5 10^3/uL (0.8-4.8) 06/15/23 04:45 [place] # (Auto) 1.6 10^3/uL (0.2-0.9) H 06/15/23 04:45 Eos # (Auto) 0.0 10^3/uL (0.0-0.8) 06/15/23 04:45 Baso # (Auto) 0.0 10^3/uL (0.0-0.1) 06/15/23 04:45 Nucleated RBC % (auto) 0 % 06/15/23 04:45 Nucleated RBCs # 0.0 /100WBC 06/15/23 04:45 Sodium 137 mmol/L (136-145) 06/16/23 04:59 Potassium 3.9 mmol/L (3.5-5.1) 06/16/23 04:59 Chloride 100 mmol/L (98-107) 06/16/23 04:59 Carbon Dioxide 25 mmol/L (22-29) 06/16/23 04:59 Anion Gap 15.9 (5-19) 06/16/23 04:59 BUN 30 mg/dL (8-23) H 06/16/23 04:59 Creatinine 1.0 mg/dL (0.7-1.2) 06/16/23 04:59 GFR Calculation 75.2 mL/min (90-130) L 06/16/23 04:59 Glucose 109 mg/dL (65-115) 06/16/23 04:59 Calculated Osmolality 291 mOsm/kg (285-295) 06/16/23 04:59 Calcium 8.9 mg/dL (8.5-10.5) 06/16/23 04:59 Phosphorus 3.8 mg/dL (2.5-4.5) 06/15/23 04:45 Magnesium 2.0 mg/dL (1.7-2.3) 06/16/23 04:59 Iron 30 ug/dL (59-158) L 06/14/23 11:10 TIBC 448 mcg/dl 06/14/23 11:10 % Saturation 6.6 % (20-50) L 06/14/23 11:10 Unsat Iron Binding 418 ug/dL (112-347) H 06/14/23 11:10 Total Bilirubin 1.1 mg/dL (0.15-1.2) 06/16/23 04:59 AST 19 U/L (0-40) 06/16/23 04:59 ALT 12 U/L (0-41) 06/16/23 04:59 Alkaline Phosphatase 83 U/L (40-130) 06/16/23 04:59 Troponin T Baseline 40 ng/L (0-15) H 06/14/23 05:27 Troponin T 120 Minute 53.48 ng/L (0-15) H 06/14/23 07:05 Delta Troponin T 13.48 ABS# (0-10) H* 06/14/23 07:05 Troponin T Hi Sens 6Hr 69.23 ng/L (0-15) H 06/14/23 11:10 Troponin T Hi Sens 6Hr Delta 29.23 ng/L (0-12) H* 06/14/23 11:10 NT-Pro-B Natriuret Pep 2642 pg/mL (0-125) H 06/14/23 05:27 Total Protein 6.9 g/dL (6.6-8.7) 06/16/23 04:59 Albumin 3.5 g/dL (3.5-5.2) 06/16/23 04:59 Globulin 3.4 g/dL (1.3-4.6) 06/16/23 04:59 Triglycerides 59 mg/dL (0-150) 06/15/23 04:45 Cholesterol 188 mg/dL (0-200) 06/15/23 04:45 LDL Cholesterol, Calc 132 mg/dL (50-129) H 06/15/23 04:45 Total VLDL Cholesterol 12 mg/dL (0-30) 06/15/23 04:45 HDL Cholesterol 44 mg/dL (60-100) L 06/15/23 04:45 LDL/HDL Ratio 3.00 RATIO (0.00-3.22) 06/15/23 04:45 Cholesterol/HDL Ratio 4.27 mg/dL (1.0-5.00) 06/15/23 04:45 Folate 6.7 ng/mL (4.5-32.2) 06/15/23 04:45 Urine Color Yellow (Yellow) 06/14/23 17:23 Urine Appearance Clear (CLEAR) 06/14/23 17:23 Urine pH 8 (5-7) H 06/14/23 17:23 Ur Specific [place] 1.015 (1.005-1.030) 06/14/23 17:23 Urine Protein Neg (Negative) 06/14/23 17:23 Urine Glucose (UA) Norm (Normal) 06/14/23 17:23 Urine Ketones Negative (Negative) 06/14/23 17:23 Urine Blood Neg (Negative) 06/14/23 17:23 Urine Nitrate Negative (Negative) 06/14/23 17:23 Urine Bilirubin Neg (Negative) 06/14/23 17:23 Prot Sulfosalicylic Acd Negative (Negative) 06/14/23 17:23 Urine Urobilinogen Norm mg/dL (Negative) 06/14/23 17:23 Ur Leukocyte Esterase Negative (Negative) 06/14/23 17:23 Urine Opiates Screen Negative ng/mL (Negative) 06/14/23 17:23 Ur Barbiturates Screen Negative ng/mL (Negative) 06/14/23 17:23 Ur Phencyclidine Scrn Negative ng/mL (Negative) 06/14/23 17:23 Ur Amphetamines Screen Negative ng/mL (Negative) 06/14/23 17:23 U Benzodiazepines Scrn Negative ng/mL (Negative) 06/14/23 17:23 Urine Cocaine Screen Negative ng/mL (Negative) 06/14/23 17:23 U Marijuana (THC) Screen Positive ng/mL (Negative) H 06/14/23 17:23 Ethyl Alcohol < 10 mg/dL (0-10) 06/14/23 05:27 Hepatitis A IgM Ab Non-reactive (Nonreactive) 06/14/23 17:10 Hep Bs Antigen Non-reactive (Nonreactive) 06/14/23 17:10 Hep Bs Antibody > 1000.0 (11.5-1000) H 06/14/23 17:10 Hep B Core Total Ab Reactive (Nonreactive) H 06/14/23 17:10 Hepatitis C Antibody Non-reactive (Nonreactive) 06/14/23 17:10 HIV 1&2 Ab & HIV 1 Ag Non-reactive (Non-Reactiv) 06/14/23 17:10 HIV 1&2 Antibody Non-reactive (Non-Reactiv) 06/14/23 17:10 Influenza Type A Ag negative (Negative) 06/14/23 07:34 Influenza Type B Ag negative (Negative) 06/14/23 07:34 SARS-CoV-2 Ag (Rapid) negative (Negative) 06/14/23 07:34 Vitals Last Vital Signs Temp 97.8 F 06/16/23 12:03 Pulse 95 06/16/23 12:03 Resp 17 06/16/23 12:03 BP 114/66 06/16/23 12:03 Pulse Ox 95 06/16/23 12:03 O2 Del Method Room Air 06/16/23 12:03 O2 Flow Rate 3 06/14/23 06:28 Discharge Plan Discharge Patient Disposition: Home Condition: Stable Prescriptions: New amoxicillin-pot clavulanate 875-125 mg Tablet 1 tab PO BID 7 Days Qty: 14 0RF levofloxacin 750 mg Tablet 750 mg PO DAILY@0600 7 Days Qty: 7 0RF prednisone 20 mg Tablet 40 mg PO DAILY 7 Days Qty: 14 0RF Continued fluticasone propionate 50 mcg/actuation [place],Suspension 2 spray nasal BID Qty: 1 0RF celecoxib 200 mg capsule 200 mg PO DAILY quetiapine 100 mg tablet 100 mg PO DAILY aspirin 81 mg Tablet,Delayed Release (Dr/Ec) 81 mg PO DAILY Qty: 90 0RF lisinopril 10 mg Tablet 10 mg PO DAILY Qty: 90 0RF albuterol sulfate 90 mcg/actuation HFA aerosol inhaler 1 inh INHALATION Q6H PRN (Reason: Shortness Of Breath) Qty: 1 0RF Trelegy Ellipta 200-62.5-25 mcg blister with device 1 inh inhalation DAILY Qty: 60 0RF furosemide 40 mg Tablet 40 mg PO DAILY@0800 Qty: 90 0RF clopidogrel 75 mg Tablet 75 mg PO DAILY Qty: 90 11RF metoprolol succinate 25 mg tablet extended release 24 hr 25 mg PO DAILY Qty: 90 0RF potassium chloride 10 mEq tablet extended release 10 meq PO DAILY Qty: 90 0RF simvastatin 40 mg tablet 40 mg PO QPM Qty: 90 0RF Discharge Orders: Discharge Order (Routine); Ordered 06/16/23 Ordered By: Kirill Wakefield Referrals: Ricky Lagunas FNP [Primary Care Provider] - 2 weeks Farideh Cash FNP [Nurse Practitioner] - 2 weeks Discharge Diet: Cardiac Discharge Activity: Resume usual activity and Increase activity as tolerated Patient Instructions: Opioid Safety Activity Restrictions/Additional Instructions: Please take your medications as prescribed daily. Your medications including aspirin, Plavix, lisinopril, metoprolol, simvastatin will be going on for the rest of the life. Please follow-up with your doctors onsite appointment. Please continue taking inhalers as before. Please try to avoid amphetamine use as much as possible. Discharge Attestations Time Spent in Discharge Care*: greater than 30 min Specific Discharge Activities: educating patient, discussing with pcp/other providers, discussing with rn field case manager/social workers/dc planners, documenting/other paperwork and evaluating patient/reviewing data Status at Discharge: Cognitive status at discharge: cognitively intact , Behavioral status at discharge: cooperative , Functional status at discharge: independent ambulation , Overall status at discharge: patient is back to baseline Quality Metrics Clinical Quality Measures [ No reported AMI, CVA or VTE this stay] Coding Level of Care Code 52098 Total time (in minutes) for Discharge: 60 Diagnoses Shortness of breath R06.02 Chronic obstructive pulmonary disease, unspecified COPD type J44.9 COPD type: unspecified COPD Granulomatous interstitial lung disease J84.89; D71 Chronic combined systolic and diastolic congestive heart failure, NYHA class 3 I50.42 Congestive heart failure type: combined Congestive heart failure chronicity: chronic Dilated cardiomyopathy I42.0 Cardiomyopathy type: dilated Coronary artery disease I25.10 Non-compliant behavior R46.89 Methamphetamine abuse F15.10
[2023-06-16 12:19] LABS: Angiotensin Converting Enzyme 61 U/L (9-67)
--- NOTE | 2023-06-16 17:02 | PC.NURSE ---
Patient was discharge by Kelly PEARL at 1440
[2023-06-19 13:34] LABS: Quantiferon Mitogen 5.98 IU/mL; Quantiferon Nil 0.01 IU/mL; Quantiferon TB Gold NEGATIVE (NEGATIVE)
[2023-06-21 13:13] LABS: Blastomyces AB Immunodiffusion Negative (Negative); Blastomyces Dermatitidis AB <1:8 titer (<1:8)
[2023-06-21 19:19] LABS: Coccidioides AB CF Serum <1:2
[2023-06-22 17:58] LABS: Histoplasma Antigen (Quant) NONE DETECTED; Histoplasma Antigen Interpreta NEGATIVE; Histoplasma Antigen Specimen URINE
[2023-06-24 19:34] LABS: Histoplasma capsulatum H Ab NEGATIVE; Histoplasma capsulatum M Ab NEGATIVE
[2023-09-21 10:16] LABS: Mycobacterium Complex PCR NOT DETECTED; Rifampin Resistance PCR NOT TESTED
[2023-09-21 10:22] LABS: Mycobacterium Complex PCR NOT DETECTED; Rifampin Resistance PCR NOT TESTED
== END 2023-06-16 14:40 | disposition home or self-care (01) ==
LOC: ER 12:24 → MEDSURG 19:44 → CSU 06-16 15:37 → MEDSURG 06-16 15:37
PROVIDERS: Emergency Medicine; Student in an Organized Health Care Education/Training Program; Admitting Provider Student in an Organized Health Care Education/Training Program; Emergency Provider Emergency Medicine; PCP Nurse Practitioner Family; Visit Provider Student in an Organized Health Care Education/Training Program
DX: J44.1 Chronic obstructive pulmonary disease with (acute) exacerbation (principal); J44.9 Chronic obstructive pulmonary disease, unspecified; J84.89 Other specified interstitial pulmonary diseases; D71 Functional disorders of polymorphonuclear neutrophils; I50.42 Chronic combined systolic (congestive) and diastolic (congestive) heart failure; R09.02 Hypoxemia; I42.0 Dilated cardiomyopathy; I25.10 Atherosclerotic heart disease of native coronary artery without angina pectoris; R46.89 Other symptoms and signs involving appearance and behavior; F15.10 Other stimulant abuse, uncomplicated; F17.200 Nicotine dependence, unspecified, uncomplicated; Z91.148 Patient's other noncompliance with medication regimen for other reason; I42.9 Cardiomyopathy, unspecified; Z79.82 Long term (current) use of aspirin
CPT/HCPCS: 36415; 71045; 71250; 80053; 80061; 80306; 80307; 81003; 82164; 82746; 83540; 83550; 83735; 83880; 84100; 84484; 85025; 86403; 86480; 86612; 86635; 86698; 86705; 86706; 86709; 86803; 87015; 87070; 87116; 87205; 87206; 87340; 87385; 87426; 87449; 87641; 87801; 87804; 87806; 93005; 94640; 96372; 96374; 99285; G0378; J1100; J1644; J1940; J7512; J7626

== ENCOUNTER 2023-11-08 00:49 | Emergency (ER) | payer MEDICARE, MEDICAID, SELFPAY ==
[2023-11-08 00:50] VITALS: BP 92/78; PULSE 117; RESP 24; TEMP 36.4; O2SAT 95; BMI 25.1
--- NOTE | 2023-11-08 00:57 | XRR_ITS ---
PROCEDURE INFORMATION: Exam: XR Chest Exam date and time: 11/08/2023 1:09 AM Age: 63 years old Clinical indication: Dyspnea TECHNIQUE: Imaging protocol: Radiologic exam of the chest. Views: 1 view. COMPARISON: CT chest con [id number] 06/14/2023 12:31 PM FINDINGS: Lungs: No definite CHF/pulmonary edema. Interval development of prominent right mid and lower lung opacities, suspicious for pneumonia and/or atelectasis. Please correlate clinically. Numerous small presumed calcified granulomas again seen diffusely throughout both lungs. Probably a larger calcified granuloma in the left lateral lower lung. These findings appear unchanged. Pleural spaces: There is now a moderate large right pleural effusion, also new in the interval. No visible pneumothorax. Heart/Mediastinum: Heart size is within normal limits. Bones/joints: No significant acute finding. XR/XR chest 1V portable [id number] IMPRESSION: 1. Interval development of prominent right mid and lower lung opacities, and a moderate to large right pleural effusion. See above discussion. 2. Other findings discussed above.
--- NOTE | 2023-11-08 00:57 | ECG_ITS ---
[facility] Test Date: 2023-11-08 Pat Name: April Mancia Department: Room: Gender: Male Executive Officer: : 1960 Requested By: Freddy Sabillon Order Number: [id number] Afshan MD: Ricci Santizo M.D. Measurements Intervals [place] Rate: 114 P: 59 RI: 134 QRS: 27 QRSD: 109 T: 89 QT: 334 QTc: 460 Interpretive Statements SINUS TACHYCARDIA WITH FREQUENT VENTRICULAR PREMATURE COMPLEXES NONSPECIFIC ST & T-WAVE ABNORMALITY ABNORMAL RHYTHM ECG Compared to ECG 06/14/2023 10:49:38 Ventricular premature complex(es) now present Sinus rhythm no longer present Possible ischemia no longer present T-wave abnormality still present Electronically Signed On 11-08-2023 19:25:42 CDT by Ricci Santizo M.D. [email or web address]
--- NOTE | 2023-11-08 00:58 | W.ED.SOB ---
HPI - SOB/Dyspnea General: Chief Complaint: Shortness of Breath/Dyspnea Stated Complaint: SOB Time Seen by Provider: 11/08/23 00:55 History of Present Illness: HPI Narrative: Patient presents to the ER with complaints of shortness of breath. Patient states he been off his Lasix for about a week or 2 because he forgot them in a friend's car and has not went back to pick them up. Patient says he is short of breath and has a headache. Upon arrival patient is tachycardic with a rate of 117 bpm, respirations 24 breaths/min and O2 saturation 95% on room air. Patient does have a history of COPD and CHF. Review of Systems General: Reports: 10 or more systems reviewed and unremarkable except in HPI and below PFSH ED PFSH: Medical History Shortness of breath Non-compliant behavior History of substance abuse ETOH abuse Methamphetamine abuse Sciatic nerve pain Back Pain Arthritis, multiple joint involvement Arthritis Cardiomyopathy CHF (congestive heart failure), NYHA class III NSTEMI (non-ST elevated myocardial infarction) DTs (delirium tremens) Scabies Surgical History History of surgery on arm Social History Smoking and tobacco/nicotine status: current every day tobacco/nicotine user Alcohol intake: current Alcohol intake frequency: 3 or more drinks per day Alcohol type: hard liquor Substance/Drug Use: current Caregiver/support person: Yes Lives independently: Yes Household members: friend(s) Housing: House Physical Exam Const: COMMON NORMALS: no acute distress, average body habitus, patient oriented x3, no limitations, healthy appearing, alert and well nourished HENMT: COMMON NORMALS: normocephalic, atraumatic, hearing grossly normal bilaterally, external ears normal, Normal external nose present and moist oral mucous membranes HEAD & SCALP: normocephalic and atraumatic NOSE: Normal external nose present EXTERNAL EAR: Yes external ears normal Eye: COMMON NORMALS: Equal, round and reactive pupils present, EOMs intact bilaterally, conjunctivae normal and no scleral icterus CONJUNCTIVA: Yes conjunctivae normal PUPIL: Yes Equal, round and reactive pupils present Neck/C-Spine: COMMON NORMALS: full ROM, no lymphadenopathy, supple, no meningeal signs, no JVD and Thyroid normal THYROID: Thyroid normal OTHER: Tender neck cervical paraspinal musculature reproduces patient's pain. Chest: COMMONS NORMALS: normal inspection of the chest and normal palpation of entire chest wall Resp: COMMON NORMALS: normal respiratory effort, No retractions, No use of accessory muscles and clear to auscultation bilaterally AUSCULTATION: clear to auscultation bilaterally Cardio: COMMON NORMALS: no JVD, regular rhythm, S1 normal heart sound present, S2 normal heart sound present, No gallops present (Cardio), No clicks present (Cardio), No murmurs present (Cardio) and No rub (Cardio); negative for regular rate (Mildly tachycardic) RATE: abnormal rate (Mildly tachycardic) RHYTHM: regular rhythm HEART SOUNDS: S1 normal heart sound present and S2 normal heart sound present GI: COMMON NORMALS: Normal to inspection, nondistended, normoactive bowel sounds present, Soft to palpation, non-tender, No hepatosplenomegaly present and no masses PALPATION: Yes Soft to palpation and Yes No hepatosplenomegaly present Extremity: NARRATIVE EXTREMITY EXAM: Trace pitting edema bilateral lower extremities Neuro: COMMON NORMALS: patient oriented x3 SENSORIUM/ORIENTATION: Yes alert MENINGEAL SIGNS: Yes no meningeal signs Course Vital Signs: Vital signs: Vital Signs Temperature 97.5 F L 11/08/23 00:50 Pulse Rate 109 H 11/08/23 04:17 Respiratory Rate 16 11/08/23 04:17 Blood Pressure 132/80 11/08/23 04:17 Pulse Oximetry 93 11/08/23 04:17 Oxygen Delivery Me thod Room Air 11/08/23 02:33 MDM - SOB/Dyspnea Medical Decision Making Patient had lab work done as well as CTA of the chest and chest x-ray, lab work showed white count mildly elevated 11.8, potassium 5.3, troponin baseline 44, 2-hour troponin 42 for delta of -1, BNP of 9654, chest x-ray showed interval development of moderate to large right pleural effusion, CTA showed and her development of moderate right pleural effusion with compressive atelectasis. Patient states stable on room air with O2 sat of 93% or above, patient was given 60 mg of IV Lasix which produced very good diuresis. Prescription of IV Lasix and an antibiotic will be sent to his pharmacy. Patient be discharged home to follow-up with his PCP. Differential Diagnosis Likely acute exacerbation of chronic obstructive airways disease and congestive heart failure Medical Records I reviewed the patient's medical records. Lab Data I reviewed the patient's lab results. 11/08/23 01:01 11/08/23 01:01 Labs/Radiology: Radiology Impressions Chest X-Ray 11/08/23 00:57 IMPRESSION: 1. Interval development of prominent right mid and lower lung opacities, and a moderate to large right pleural effusion. See above discussion. 2. Other findings discussed above. Chest CTA 11/08/23 01:50 IMPRESSION: 1. Interval development of moderate-sized right pleural effusion with compressive atelectasis. 2. Septal thickening involving the lungs bilaterally suggesting a degree of interstitial edema. 3. Bronchial wall thickening involving lower lobe bronchi bilaterally. There are a few opacified right lower lobe bronchi. This could be related to aspiration or mucous plugging. 4. Small mediastinal lymph nodes. There is an enlarged subcarinal lymph node. This represents an interval change when compared to prior exam. This may be reactive. Follow-up may be of benefit to document that this node returns to a more normal size. Laboratory Results WBC 11.81 10^3/uL (3.29-11.43) H 11/08/23 01:01 RBC 4.68 10^6/uL (3.85-5.65) 11/08/23 01:01 Hgb 13.40 g/dL (11.27-16.99) 11/08/23 01:01 Hct 43.1 % (37-53) 11/08/23 01:01 MCV 92.1 fl (82-101) 11/08/23 01:01 MCH 28.6 pg (27-33) 11/08/23 01:01 MCHC 31.1 g/dL (30-55) 11/08/23 01:01 RDW 20.8 % (12.1-15.1) H 11/08/23 01:01 Plt Count 244 10^3/cmm (157-399) 11/08/23 01:01 MPV 10.9 fL (7.4-10.4) H 11/08/23 01:01 Neut % (Auto) 63.4 % 11/08/23 01:01 Lymph % (Auto) 19.6 % 11/08/23 01:01 Blount % (Auto) 15.3 % 11/08/23 01:01 Eos % (Auto) 0.8 % 11/08/23 01:01 Baso % (Auto) 0.4 % 11/08/23 01:01 Neut # (Auto) 7.48 10^3/uL (1.8-7.7) 11/08/23 01:01 Lymph # (Auto) 2.3 10^3/uL (0.8-4.8) 11/08/23 01:01 [place]ount # (Auto) 1.8 10^3/uL (0.2-0.9) H 11/08/23 01:01 Eos # (Auto) 0.1 10^3/uL (0.0-0.8) 11/08/23 01:01 Baso # (Auto) 0.1 10^3/uL (0.0-0.1) 11/08/23 01:01 Nucleated RBC % (auto) 0 % 11/08/23 01:01 Nucleated RBCs # 0.0 /100WBC 11/08/23 01:01 Sodium 138 mmol/L (136-145) 11/08/23 01:01 Potassium 5.3 mmol/L (3.5-5.1) H 11/08/23 01:01 Chloride 104 mmol/L (98-107) 11/08/23 01:01 Carbon Dioxide 23 mmol/L (22-29) 11/08/23 01:01 Anion Gap 16.3 (5-19) 11/08/23 01:01 BUN 12 mg/dL (8-23) 11/08/23 01:01 Creatinine 0.8 mg/dL (0.7-1.2) 11/08/23 01:01 GFR Calculation 97.3 mL/min (90-130) 11/08/23 01:01 Glucose 99 mg/dL (65-115) 11/08/23 01:01 Calculated Osmolality 286 mOsm/kg (285-295) 11/08/23 01:01 Calcium 9.1 mg/dL (8.5-10.5) 11/08/23 01:01 Magnesium 2.0 mg/dL (1.7-2.3) 11/08/23 01:01 Total Bilirubin 0.7 mg/dL (0.15-1.2) 11/08/23 01:01 AST 41 U/L (0-40) H 11/08/23 01:01 ALT 24 U/L (0-41) 11/08/23 01:01 Alkaline Phosphatase 184 U/L (40-130) H 11/08/23 01:01 Troponin T Baseline 44 ng/L (0-15) H 11/08/23 01:01 Troponin T 120 Minute 42.86 ng/L (0-15) H 11/08/23 03:20 Delta Troponin T -1.14 ABS# (0-10) L 11/08/23 03:20 NT-Pro-B Natriuret Pep 9654 pg/mL (0-125) H 11/08/23 01:01 Total Protein 7.2 g/dL (6.6-8.7) 11/08/23 01:01 Albumin 3.2 g/dL (3.5-5.2) L 11/08/23 01:01 Globulin 4.0 g/dL (1.3-4.6) 11/08/23 01:01 All radiology interpretation(s) finalized by discharge Discharge Plan Discharge Patient Disposition: Home Clinical Impression: Pleural effusion on right CHF (congestive heart failure) Qualifiers: Heart failure type: unspecified Heart failure chronicity: unspecified Qualified Code(s): I50.9 - Heart failure, unspecified Condition: Stable Prescriptions: New furosemide [Lasix] 40 mg tablet 40 mg PO DAILY Qty: 14 0RF sulfamethoxazole-trimethoprim [Bactrim DS] 800-160 mg tablet 1 tab PO BID Qty: 14 0RF No Action quetiapine 100 mg tablet 100 mg PO DAILY Qty: 30 3RF Trelegy Ellipta 200-62.5-25 mcg blister with device 1 inh inhalation DAILY Qty: 60 0RF omeprazole 40 mg capsule,delayed release(DR/EC) 40 mg PO DAILY Qty: 90 3RF furosemide 40 mg tablet 40 mg PO DAILY@0800 Qty: 30 2RF fluticasone propionate 50 mcg/actuation [place],Suspension 2 spray nasal BID Qty: 1 0RF potassium chloride 10 mEq tablet extended release 10 meq PO DAILY Qty: 90 0RF clopidogrel 75 mg Tablet 75 mg PO DAILY Qty: 90 11RF aspirin 81 mg Tablet,Delayed Release (Dr/Ec) 81 mg PO DAILY Qty: 90 0RF simvastatin 40 mg tablet 40 mg PO QPM Qty: 90 0RF lisinopril 10 mg Tablet 10 mg PO DAILY Qty: 90 0RF metoprolol succinate 25 mg tablet extended release 24 hr 25 mg PO DAILY Qty: 90 0RF albuterol sulfate 90 mcg/actuation HFA aerosol inhaler 1 inh INHALATION Q6H PRN (Reason: Shortness Of Breath) Qty: 1 0RF Discharge Orders: Discharge ED (Routine); Ordered 11/08/23 Ordered By: Freddy Sabillon Referrals: Ricky Lagunas FNP [Primary Care Provider] - 1 week Patient Instructions: Congestive Heart Failure, Pleural Effusion (DC) Activity Restrictions/Additional Instructions: Your lab work and your chest x-ray shows worsening of your congestive heart failure due to you not taking your Lasix for the last week or 2 and also a new pleural effusion which is fluid on your lungs on the right side. He had been prescribed Lasix and it has been sent to your pharmacy as well as an antibiotic. Please follow-up with your family practice physician within the next 7 to 10 days for reevaluation of this pleural effusion you may benefit from being sent to a screen printing loader unloader if this does not resolve. Coding Level of Care Code ED Assistant Professor Of Criminal Justice for Jethro Joyner
[2023-11-08 01:11] LABS: Basophils # 0.1 10^3/uL (0.0-0.1); Basophils % 0.4 %; Eosinophils # 0.1 10^3/uL (0.0-0.8); Eosinophils % 0.8 %; Hematocrit 43.1 % (37-53); Lymphocytes # 2.3 10^3/uL (0.8-4.8); Lymphocytes % 19.6 %; Mean Corpuscular HGB Conc 31.1 g/dL (30-55); Mean Corpuscular Hemoglobin 28.6 pg (27-33); Mean Corpuscular Volume 92.1 fl (82-101); Mean Platelet Volume 10.9 fL (7.4-10.4); Monocytes # 1.8 10^3/uL (0.2-0.9); Monocytes % 15.3 %; Neutrophils # 7.48 10^3/uL (1.8-7.7); Neutrophils % 63.4 %; Nucleated Red Blood Cells % 0 %; Platelet Count 244 10^3/cmm (157-399); Red Blood Count 4.68 10^6/uL (3.85-5.65); Red Cell Distribution Width 20.8 % (12.1-15.1); White Blood Count 11.81 10^3/uL (3.29-11.43)
[2023-11-08 01:29] LABS: Troponin(5th) Baseline 44 ng/L (0-15)
[2023-11-08] MEDS: ketorolac 30 mg/mL INJ IVP (01:39)
[2023-11-08 01:42] LABS: Alanine Aminotransferase 24 U/L (0-41); Albumin Level 3.2 g/dL (3.5-5.2); Alkaline Phosphatase 184 U/L (40-130); Anion Gap 16.3 (5-19); Aspartate Amino Transferase 41 U/L (0-40); Blood Urea Nitrogen 12 mg/dL (8-23); Calcium 9.1 mg/dL (8.5-10.5); Carbon Dioxide 23 mmol/L (22-29); Chloride 104 mmol/L (98-107); Creatinine Clr Calc Pharmacy 96.6683; Glomerular Filtration Rate 97.3 mL/min (90-130); Glucose 99 mg/dL (65-115); NT Pro B Type Natriuretic Pept 9654 pg/mL (0-125); Osmolality Calculated 286 mOsm/kg (285-295); Potassium 5.3 mmol/L (3.5-5.1); Sodium 138 mmol/L (136-145); Total Bilirubin 0.7 mg/dL (0.15-1.2); Total Protein 7.2 g/dL (6.6-8.7)
--- NOTE | 2023-11-08 01:50 | CTR_ITS ---
PROCEDURE INFORMATION: Exam: CTA Chest With Contrast Exam date and time: 11/08/2023 2:01 AM Age: 63 years old Clinical indication: Dyspnea; Additional info: Dyspnea tachycardia chf copd TECHNIQUE: Imaging protocol: Computed tomographic angiography of the chest with contrast. Exam focused on the arteries. 3D rendering (Not supervised by radiologist): MIP and/or 3D reconstructed images were created by the technologist. Radiation optimization: All CT scans at this facility use at least one of these dose optimization techniques: automated exposure control; mA and/or kV adjustment per patient size (includes targeted exams where dose is matched to clinical indication); or iterative reconstruction. Contrast material: OMNI 350; Contrast volume: 100 ml; Contrast route: INTRAVENOUS (IV); COMPARISON: CT chest wo con [id number] 06/14/2023 12:31 PM RADIATION DOSE METRICS: Total DLP (mGy-cm): 268.1 FINDINGS: Pulmonary arteries: Normal. No pulmonary emboli. Aorta: The aorta is normal in caliber without evidence of aneurysm formation. There is calcified plaque involving the aorta, coronary vessels and great vessels. Please note that the aorta is not opacified to the extent necessary to evaluate for an aortic dissection. Lungs: There are numerous calcified granulomas bilaterally. There is a moderate-sized pleural effusion with compressive atelectasis on the right. There is septal thickening involving the aerated lungs suggesting a degree of interstitial edema. There is bronchial wall thickening primarily involving the lower lobe bronchi. There are a few opacified lower lobe bronchi on the right. No non dependent airspace disease is appreciated. Pleural spaces: There is a moderate right-sided pleural effusion. Heart: Unremarkable. No cardiomegaly. No pericardial effusion. Lymph nodes: There are multiple small mediastinal lymph nodes. There is an enlarged subcarinal lymph node measuring 18 mm Bones/joints: There are old rib fractures. No new fractures are appreciated. No blastic or lytic bony lesions are identified. Soft tissues: Unremarkable. CT/CT angio chest PE protcl [id number] IMPRESSION: 1. Interval development of moderate-sized right pleural effusion with compressive atelectasis. 2. Septal thickening involving the lungs bilaterally suggesting a degree of interstitial edema. 3. Bronchial wall thickening involving lower lobe bronchi bilaterally. There are a few opacified right lower lobe bronchi. This could be related to aspiration or mucous plugging. 4. Small mediastinal lymph nodes. There is an enlarged subcarinal lymph node. This represents an interval change when compared to prior exam. This may be reactive. Follow-up may be of benefit to document that this node returns to a more normal size.
[2023-11-08] MEDS: iohexol 350 mg/mL 500 mL Btl (per mL) IV (02:06)
[2023-11-08 02:33] VITALS: BP 122/88; PULSE 111; RESP 14; O2SAT 94
[2023-11-08] MEDS: FUROsemide 10 mg/mL SDV 10mL 60 MG IVP (02:53)
[2023-11-08 03:58] LABS: Troponin 5 2HR 42.86 ng/L (0-15)
[2023-11-08 04:03] LABS: Troponin 5 2HR Delta -1.14 ABS# (0-10)
[2023-11-08 04:17] VITALS: BP 132/80; PULSE 109; RESP 16; O2SAT 93
[2023-11-08 04:42] VITALS: BP 132/80; PULSE 109; RESP 16; TEMP 36.4; O2SAT 93
== END 2023-11-08 04:43 | disposition home or self-care (01) ==
PROVIDERS: Emergency Provider Emergency Medicine; PCP Nurse Practitioner Family
DX: J90 Pleural effusion, not elsewhere classified (principal); I50.9 Heart failure, unspecified; Z79.02 Long term (current) use of antithrombotics/antiplatelets; Z79.82 Long term (current) use of aspirin; Z72.0 Tobacco use; I42.9 Cardiomyopathy, unspecified; J44.9 Chronic obstructive pulmonary disease, unspecified; E11.9 Type 2 diabetes mellitus without complications; I25.2 Old myocardial infarction
CPT/HCPCS: 71045; 71275; 80053; 83735; 83880; 84484; 85025; 93005; 96374; 96375; 99285; J1885; J1940; Q9967